=== PATIENT | female | born 1940 | race Caucasian/White ===

== ENCOUNTER → 2018-02-08 14:02 | Outpatient (CLI) | payer MEDICARE, SELFPAY ==
--- NOTE | 2018-02-08 | DI.MG.S_ITS ---
BILATERAL DIGITAL SCREENING MAMMOGRAM 3D/2D WITH CAD: 02/08/2018 CLINICAL: Routine screening. Family history of breast cancer. Comparison is made to exams dated: 01/25/2017 mammogram, 08/09/2015 mammogram, and 06/15/2014 mammogram - [facility]. There are scattered fibroglandular elements in both breasts. Current study was also evaluated with a Computer Aided Detection (CAD) system. No significant masses, calcifications, or other findings are seen in either breast. There has been no significant interval change. IMPRESSION: NEGATIVE There is no mammographic evidence of malignancy. A 1 year screening mammogram is recommended. This exam was interpreted at Station ID: [id number]. NOTE: For mammograms, a report in lay terms will be sent to the patient. Approximately 15% of breast malignancies will not be visualized mammographically. In the management of a palpable breast mass, a negative mammogram must not discourage biopsy of a clinically suspicious lesion. Electronically Signed By: Obdulio pires/kaylie:02/08/2018 15:36:29 copy to: Wendy Wooten letter sent: Normal Exam ACR BI-RADS Category 1: Negative [id number]
== END ==
PROVIDERS: Family Provider Family Medicine; PCP Family Medicine; Visit Provider Family Medicine
DX: Z12.31 Encounter for screening mammogram for malignant neoplasm of breast (principal); Z80.3 Family history of malignant neoplasm of breast
CPT/HCPCS: 77063; 77067

== ENCOUNTER → 2019-02-12 07:51 | Outpatient (CLI) | payer MEDICARE, SELFPAY ==
--- NOTE | 2019-02-12 | DI.MG.S_ITS ---
BILATERAL DIGITAL SCREENING MAMMOGRAM 3D/2D WITH CAD: 02/12/2019 CLINICAL: Routine screening. Family history of breast cancer. Comparison is made to exams dated: 02/08/2018 mammogram, 01/25/2017 mammogram, 08/09/2015 mammogram, 06/05/2012 mammogram, 06/11/2013 mammogram, and 06/15/2014 mammogram - [facility]. There are scattered fibroglandular elements in both breasts. Current study was also evaluated with a Computer Aided Detection (CAD) system. There are post operative findings in the left breast. There is a circular mole marker on the left breast. No significant masses, calcifications, or other findings are seen in either breast. There has been no significant interval change. IMPRESSION: There is no mammographic evidence of malignancy. A 1 year screening mammogram is recommended. This exam was interpreted at Station ID: [id number]. NOTE: For mammograms, a report in lay terms will be sent to the patient. Approximately 15% of breast malignancies will not be visualized mammographically. In the management of a palpable breast mass, a negative mammogram must not discourage biopsy of a clinically suspicious lesion. Electronically Signed By: Carlos Roberson M.D. ecl/:02/12/2019 13:20:26 letter sent: Normal Exam ACR BI-RADS Category 2: Benign Finding(s) 3342F
== END ==
PROVIDERS: PCP Family Medicine; Visit Provider Family Medicine
DX: Z12.31 Encounter for screening mammogram for malignant neoplasm of breast (principal); Z80.3 Family history of malignant neoplasm of breast
CPT/HCPCS: 77063; 77067

== ENCOUNTER → 2019-02-17 09:03 | Outpatient (CLI) | payer MEDICARE, SELFPAY ==
--- NOTE | 2019-02-17 09:06 | DI.MRI.S_ITS ---
PROCEDURE: MR LUMBAR SPINE WO/W CON INDICATIONS: Post fusion w/left LE foot drop TECHNIQUE: Noncontrast sagittal T1 spin echo and T2 fast spin echo, sagittal STIR, axial T1 and T2 fast spin echo through the lumbar spine. In cases with scoliosis, additional coronal T2 fast spin echo may be performed. After the administration of contrast, sagittal and axial T1 spin echo with fat saturation through the lumbar spine. COMPARISON: [facility], MR, L-SPINE WITHOUT CONTRAST, 07/20/2011, 7:40. [facility], MR, L-SPINE WITHOUT CONTRAST, 08/04/2008, 17:33. [facility], MR, L-SPINE W&WO CONTRAST, 11/30/2014, 8:26. [facility], CR, XR LUMBAR SPINE MIN 4V, 02/17/2019, 9:17. [facility], CT, L-SPINE WITHOUT CONTRAST, 02/26/2013, 10:53. FINDINGS: Image quality: Excellent. Alignment and curvature: S-shaped scoliotic curvature is seen. Grade 1 anterolisthesis is seen at the L4-L5 level and there is mild grade 1 anterolisthesis at L4-L5. Marrow: Marrow is of normal overall signal. No acute vertebral body compression fractures. No suspicious marrow enhancement. Spinal cord: Conus medullaris terminates at the L1 level. Visualized spinal cord demonstrates normal signal, without suspicious enhancement. Paraspinous soft tissues: No paravertebral masses or abnormal enhancement. Left-sided pedicle screws are seen at L4, L5, and S1. A vertical fixation saw is seen. Disc spacers are seen at L4-L5 and L5-S1. There is associated susceptibility artifact. There has been removal of portions of the posterior elements. T12-L1: At least moderate loss of disc height and disc signal can be seen. Endplate irregularity is seen. Moderate loss of disc height is seen. Loss of disc signal is seen. Posteriorly projected endplate osteophytes are seen. Reactive marrow endplate changes are seen, which are hyperintense on T1-weighted and T2-weighted imaging and most consistent with fatty metaplasia (Modic type II changes). There is moderate right-sided and no significant left-sided neural foraminal narrowing seen. Mild central canal narrowing is seen. No significant change compared to 2015. L1-L2: The disc height is well-preserved. Loss of disc signal is seen at this level. Mild to moderate disc bulge is seen, which is eccentric to the left. There is a central/left disc protrusion seen. There is moderate left-sided and moderate to severe right-sided neural foraminal narrowing seen. These imaging findings have progressed compared to the prior study. L2-L3: Moderate to severe loss of disc height and disc signal are seen. Moderate to prominent disc bulge is seen at this level. Moderate facet joint hypertrophy is seen. There is moderate to severe right-sided and moderate left-sided neural foraminal narrowing seen. Moderate to severe central canal narrowing is seen, as on series 5 image 14. The degree of central canal narrowing is exacerbated by prominent posterior epidural fat. These imaging findings have progressed compared to the prior study. L3-L4: Moderate to severe loss of disc height and disc signal are seen. At least moderate disc bulge is seen. Posteriorly projected endplate osteophytes are seen. Moderate facet joint hypertrophy is seen. There is at least moderate right-sided and moderate to severe left-sided neural foraminal narrowing seen. There is a degree of compression seen upon the exiting nerve roots. At least moderate central canal narrowing is seen. These imaging findings have progressed compared to the prior study. L4-L5: Postoperative changes are seen at this level. Mild to moderate disc bulge is seen. Moderate facet joint hypertrophy is seen. There is mild right-sided and moderate to severe left-sided neural foraminal narrowing seen. The central canal is widely patent. No abnormal enhancement can be seen at this level. When comparison is made with the prior examination, these findings are similar. L5-S1: There are postoperative changes at this level. Mild to moderate disc bulge is seen. There is moderate right-sided and mild to moderate left-sided neural foraminal narrowing seen. No significant central canal narrowing is seen. No abnormal enhancement is seen. Stable from the prior study. IMPRESSION: Lower lumbar spine postoperative changes, which are stable. No abnormal enhancement can be seen. Multiple levels of lumbar spine degenerative change are seen, which are progressed at several levels compared to 2015. Dictated by: Darren Thompson M.D. on 02/17/2019 at 10:40 Approved by: Darren Thompson M.D. on 02/17/2019 at 10:50
--- NOTE | 2019-02-17 09:06 | DI.RAD.S_ITS ---
PROCEDURE: XR LUMBAR SPINE MIN 4V INDICATIONS: Post fusion w/left LE foot drop TECHNIQUE: 5 views of the lumbar spine were acquired. COMPARISON: [facility] [place], ZAYDA, SPINE LUMB 2 OR 3VW, 06/21/2016, 16:30. [facility], ZAYDA, L-SPINE 2-3 VIEWS, 09/28/2014, 10:31. FINDINGS: No fracture or focal osseous destruction. Posterior spinal instrumentation from L4-S1 as before with paraspinal saw and pedicle screws. Hardware appears grossly intact. There is unchanged alignment. Residual grade 1 anterolisthesis of L4 and L5 appears unchanged. Levocurvature of the thoracolumbar spine. Severe narrowing of the L2-L3 and L3-L4 disc spaces which has progressed since the prior study. Multilevel degenerative endplate sclerosis and spurring. Diffuse facet arthropathy. There is also interval progression in lower thoracic and L1-L2 and L2-L3 spondylosis. IMPRESSION: Unchanged alignment of L4-S1 spinal instrumentation as above. Interval progression of severe multilevel lumbar spondylosis since 06/21/16. Thoracolumbar levoscoliosis, also progressed. Dictated by: Dayne Beach M.D. on 02/17/2019 at 10:24 Approved by: Dayne Beach M.D. on 02/17/2019 at 10:28
== END ==
PROVIDERS: PCP Family Medicine; Visit Provider Physical Medicine & Rehabilitation
DX: M47.26 Other spondylosis with radiculopathy, lumbar region (principal); M21.372 Foot drop, left foot; M48.061 Spinal stenosis, lumbar region without neurogenic claudication; M48.07 Spinal stenosis, lumbosacral region; M41.85 Other forms of scoliosis, thoracolumbar region; Z98.1 Arthrodesis status
CPT/HCPCS: 72110; 72158; A9579

== ENCOUNTER 2019-03-18 08:06 | Outpatient (CLI) | payer MEDICARE, SELFPAY ==
[2019-03-18] VITALS (10 sets, daily range): BP systolic 123–155; BP diastolic 61–79; PULSE 64–74; RESP 16–20; TEMP 35.9; O2SAT 97–100
--- NOTE | 2019-03-18 08:10 | DI.RAD.S_ITS ---
PROCEDURE: PAIN L/SI FACET INJ/BLK 1STL INDICATIONS: SPINAL STENOSIS FINDINGS: Fluoroscopic spot filming was performed to verify placement of spinal needles at the left L2 left L3 and L3 at L4 level(s), as labeled on the films. Appropriate location(s) of the needle tip(s) was confirmed by injection of iodinated contrast. Note is made of postsurgical changes with left particular screws in the lower lumbar spine. IMPRESSION: Fluoroscopy for pain management. Dictated by: Shaina Ovalles M.D. on 03/18/2019 at 10:04 Approved by: Shaina Ovalles M.D. on 03/18/2019 at 10:07
[2019-03-18] MEDS: MIDAZOLAM 5 MG/5 ML VIAL IV (09:24)
[2019-03-18] MEDS: fentaNYL 100 MCG/2 ML INJ 50 MCG IV (09:24)
[2019-03-18] MEDS: BUPIVACAINE 0.5% (PF) VIAL 2 ML INJ (09:29)
[2019-03-18] MEDS: IOPAMIDOL 15 ML VIAL 3 ML INJ (09:29)
[2019-03-18] MEDS: LIDOCAINE 1% 20 ML INJ 10 ML INJ (09:29)
[2019-03-18] MEDS: BETAMETHASONE 30 MG/5 ML MDV 12 MG INJ (09:30)
--- NOTE | 2019-03-18 09:37 | PC.NURSE ---
pt tolerated procedure well. Able to get off table with standby assist. Transferred pt via wheelchair to pre procedure room for continued monitoring with Day DICKERSON.
--- NOTE | 2019-03-18 09:48 | P.PCN_ITS ---
Procedures Date/Time Date of procedure: 03/18/19 Time of procedure: 09:40 General Procedure description: POST OP DIAGNOSIS 1. FACET ARTHROPATHY PROCEDURES 1. Left L3,L4, L5 MB BLOCKS PHYSICIAN: Marciano Segal DO INDICATIONS Archie is referred by Dr. Vanegas for treatment of Left Axial LBP. DESCRIPTION OF PROCEDURE Fluoroscopically guided, contrast-controlled left L3, L4, L5 medial branch blocks with 0.5cc of 0.5% Marcaine. Following review of allergy and review of potential side effects and complications, including, but not necessarily limited to, infection, allergic reaction, local tissue breakdown, nerve injury, paralysis, stroke and possible , the patient indicated that the patient understood and agreed to proceed. An informed consent document was signed by the patient, witnessed by a nurse, and placed in the patient's chart. After review of previous anaesthesic history and IV conscious sedation the patient was deemed safe to proceed with todays procedure with IV conscious sedation as ASA class II designation. Safety time-out was performed to confirm patient ID, procedure to be performed and site of procedure. IV sedation was accomplished with a combination of 2mg of Versed and 50mcg Fentanyl was admini stered by the RN after DO order, titrated to patient comfort during the course of the procedure while the patient remained responsive to all verbal commands. In the prone position, following sterile prep and drape of the lumbar region, the left L3, L4, L5 anatomical location of the medial branch of the dorsal ramus was identified fluoroscopically. Subsequently an anesthetic skin wheal using 1% lidocaine solution was initiated at each of the anatomical spots. Subsequently then a 22-gauge 3.5-inch spinal needle was atraumatically introduced and advanced under fluoroscopic guidance at each of the corresponding sites at the left L3 L4, L5 MB. After negative aspiration, 0.2 cc of Isovue 200 was injected, confirming placement without vascular or intrathecal uptake. Subsequently then 0.5 cc of 0.5% Marcaine solution was injected at each of the corresponding sites at the left L3,L4, L5 medial branch locations. The patient tolerated the procedure well without signs or symptoms of complications. The patient tolerated the procedure well without signs or symptoms of complications prior to transfer to the recovery area continued monitoring without incident. Post-procedure, the patient was monitored initiating provocative activities to measure the amount of relief from block of the facetogenic pain. The patient reported a VAS of 7 prior to the procedure and a post-procedure VAS of 1. It has been a pleasure to assist in the diagnostic and therapeutic care of your patient. Total Fluoroscopy Time: 24.8 seconds Total Conscious Sedation Time: 24min POST OP INSTRUCTIONS The patient was provided with a Pain Log to complete over the next several hours and subsequent days prior to the patient's follow up with the ordering physician. 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 The patient is aware, was provided, once again, with a Pain Log and will follow up with the referring physician for review and clinical correlation Marciano Segal DO Complications: none
== END 2019-03-18 10:01 ==
LOC: RAD 08:08
PROVIDERS: PCP Family Medicine; Visit Provider Physical Medicine & Rehabilitation
DX: M47.816 Spondylosis without myelopathy or radiculopathy, lumbar region (principal)
CPT/HCPCS: 64493; 64494; 64495; 99152; J0702; J2250; J3010

== ENCOUNTER → 2019-04-21 09:36 | Outpatient (CLI) | payer MEDICARE, SELFPAY ==
--- NOTE | 2019-04-21 | DI.CT.S_ITS ---
PROCEDURE: CT KIDNEY URETER BLADDER (KUB) INDICATIONS: Urinary tract infection, site not specified TECHNIQUE: Noncontrast 5 mm thick sections acquired from the diaphragms to the symphysis. 5 mm thick coronal and sagittal reformats were then performed. For radiation dose reduction, the following was used: automated exposure control, adjustment of mA and/or kV according to patient size. COMPARISON: [facility], CT, ABDOMEN/PELVIS WITH CONTRAST, 03/12/2014, 10:29. FINDINGS: Image quality: Excellent. Lung bases: Lung bases are clear. Heart size is normal. Urinary system: Both kidneys are normal in size. No kidney stones. No hydronephrosis or perinephric fat stranding. Both ureters appear non-dilated throughout their expected courses. Bladder wall thickness is normal; no calcified bladder stones. Other solid organs: Liver is normal in size. Gallbladder is unremarkable. Pancreas is normal in contours. Spleen is normal in size. No adrenal nodules. Peritoneum and bowel: Sigmoid diverticulosis without evidence of diverticulitis. Unenhanced bowel loops demonstrate normal wall thickness and caliber. No free fluid or air. Nodes and vessels: No retroperitoneal or mesenteric adenopathy by size criteria. Aorta and inferior vena cava are normal in caliber. Dense aortic atherosclerotic calcifications. Abdominal wall: Left posterior lateral abdominal hernia containing fat. Pelvis: No free pelvic fluid. Small bilateral inguinal hernias, left greater than right, containing fat. Previous left adnexal cyst is no longer present. Bones: No suspicious bony lesions. No vertebral body compression fractures. Remote lower lumbar fusion. IMPRESSION: 1. No evidence of renal stone or ureteral stone. 2. Left adnexal cyst no longer present. 3. Sigmoid diverticulosis. 4. Left posterior lateral, wall hernia containing fat. 5. Bilateral inguinal hernias containing fat. Dictated by: Audie Dunbar M.D. on 04/21/2019 at 11:25 Approved by: Audie Dunbar M.D. on 04/21/2019 at 11:31
== END ==
PROVIDERS: PCP Family Medicine; Visit Provider Urology
DX: N39.0 Urinary tract infection, site not specified (principal); K57.30 Diverticulosis of large intestine without perforation or abscess without bleeding; K40.20 Bilateral inguinal hernia, without obstruction or gangrene, not specified as recurrent; K46.9 Unspecified abdominal hernia without obstruction or gangrene; I70.0 Atherosclerosis of aorta
CPT/HCPCS: 74176

== ENCOUNTER 2019-05-20 07:24 | Outpatient (CLI) | payer MEDICARE, SELFPAY ==
[2019-05-20] VITALS (7 sets, daily range): BP systolic 134–159; BP diastolic 72–93; PULSE 61–68; RESP 16–18; TEMP 36; O2SAT 95–100
--- NOTE | 2019-05-20 07:27 | DI.RAD.S_ITS ---
PROCEDURE: PAIN L/S MED/LAT N RFA INDICATIONS: SPONDYLOSIS FINDINGS: Fluoroscopic spot filming was performed to verify placement of spinal needles at the left L2, L3, L4-4 medial branch rhizotomy. level(s), as labeled on the films. Appropriate location(s) of the needle tip(s) was confirmed by injection of iodinated contrast. IMPRESSION: Successful left-sided L2-L4 medial branch needle tip localization for rhizotomy. Dictated by: Jason Baer M.D. on 05/20/2019 at 10:44 Approved by: Jason Baer M.D. on 05/20/2019 at 10:45
[2019-05-20] MEDS: MIDAZOLAM 5 MG/5 ML VIAL IV (08:33)
[2019-05-20] MEDS: BUPIVACAINE 0.5% (PF) VIAL 5 ML INJ (08:49)
[2019-05-20] MEDS: BETAMETHASONE 30 MG/5 ML MDV 12 MG INJ (08:49)
[2019-05-20] MEDS: LIDOCAINE 1% 20 ML 10 ML INJ (08:49)
--- NOTE | 2019-05-20 08:57 | PC.NURSE ---
ASSISTING PT OFF TABLE AND TRANSPORTING TO POST PROC AREA IN STABLE CONDITION. PASSING PT CARE OFF TO KRISTINE Bruno RN.
--- NOTE | 2019-05-20 09:04 | P.PCN_ITS ---
Procedures Date/Time Date of procedure: 05/20/19 Time of procedure: 09:04 General Procedure description: PREOP DIAGNOSIS 1. RECALCITRANT FACET ARTHROPATHY, POST OP DIAGNOSIS 1. RECALCITRANT FACET ARTHROPATHY PROCEDURES 1. LEFT L2, L3 AND L4 MEDIAL BRANCH RADIOFREQUENCY NEUROTOMY PHYSICIAN: Marciano Segal DO INDICATIONS: Archie is referred by Dr. Vanegas for treatment of facet arthropathy. DESCRIPTION OF PROCEDURE Left L2, L3 and L4 medial branch radio-frequency neurotomy The patient is well known to this clinic having undergone previous facet injections with good but temporary relief. The patient has experienced appropriate, concordant relief with previous facet and median branch blocks but the patient's pain has been recalcitrant to further conservative measures. Therefore, based upon the patient's relief and persistent symptoms, the patient is considered an appropriate candidate for facet rhizotomy. All of the patient's questions regarding the risks versus benefits of the procedure, including, but not limited to, bleeding, infection, temporary as well as lasting nerve injury, paralysis, stroke, and , as well treatment alternatives were answered to satisfaction. After obtaining informed consent, denial of pertinent drug allergies, as well as being made aware of the potential risks of bleeding, infection, spinal cord trauma, paralysis, temporary and permanent nerve damage, seizure, stroke, and po ssible , the patient was brought to the fluoroscopy suite and positioned prone on the fluoroscopy table. The lumbar region was prepped with Betadine and covered with a fenestrated drape in the usual sterile fashion. Appropriate monitors applied including pulse oximeter, pulse, and blood pressure for regular monitoring throughout the procedure. After review of previous anaesthesic history and IV conscious sedation the patient was deemed safe to proceed with todays procedure with IV conscious sedation as ASA class II designation. Safety time-out was performed to confirm patient ID, procedure to be performed and site of procedure. IV sedation was accomplished with a combination of 3mg of Versed administered by the RN after DO order, titrated to patient comfort during the course of the procedure while the patient remained responsive to all verbal commands. After local infiltration using 1% lidocaine, under fluoroscopic guidance, a 10- cm RF insulated needle with a 10-mm active tip was positioned parallel to the junction of the left the superior articulating process where the L2 medial branch resides. Needle placement was confirmed with sensory stimulation at 50 Hz, with motor stimulation of .5v on the left which produced local stimulation without radicular component. The stimulation was then increased to 1.5v with, once again, only local multifidus stimulation without radicular component. This was then followed by two discreet lesions performed at 80 degrees Celsius for 90 seconds each. The needle was then removed and the identical procedure was performed along the length of the left L3 medial branch with motor stimulation at .7v on the left. The identical procedure was once again performed along the length of the left L4 and medial branch with motor stimulation of .5v on the right. The patient tolerated the procedure well without signs or symptoms of complications prior to transfer to the recovery area continued monitoring without incident. The patient was then transferred to the recovery area where they were observed for an appropriate period of time after the injection. The patient reported a VAS score of 9 prior to the procedure and a post-procedure VAS of 0. Total Fluoroscopy Time: 22.7 seconds Total Conscious Sedation Time: 34min POST OP INSTRUCTIONS The patient was provided a Pain Log to continue to record the patient's response to the target-specific procedure prior to the patient's follow-up visit with the referring physician. Additionally, specific post-injection care instructions and a contact number to our office were provided if concerns arise regarding possible complications associated with the procedure are suspected. Marciano Segal DO Complications: none
--- NOTE | 2019-05-20 09:52 | PC.NURSE ---
0903 pt arrived via w/c post procedure, transfer self from w/c to recliner without assist, resume care from Rachele Sellers. coffee and cookies offered, tolerated.
== END 2019-05-20 09:22 | disposition home or self-care (01) ==
LOC: RAD 07:26
PROVIDERS: PCP Family Medicine; Visit Provider Physical Medicine & Rehabilitation
DX: M47.816 Spondylosis without myelopathy or radiculopathy, lumbar region (principal); M47.817 Spondylosis without myelopathy or radiculopathy, lumbosacral region
CPT/HCPCS: 64635; 64636; 99152; J0702; J2250; J3010

== ENCOUNTER → 2019-06-16 09:34 | Outpatient (CLI) | payer MEDICARE, SELFPAY ==
--- NOTE | 2019-06-16 | DI.RAD.S_ITS ---
PROCEDURE: XR CHEST 2V INDICATIONS: CHEST PAIN TECHNIQUE: 2 views of the chest were acquired. COMPARISON: CT chest including the inferior lungs . FINDINGS: Surgical changes and devices: None. Lungs and pleura: Lungs are clear. No pleural effusions or pneumothorax. Mediastinum: Mediastinal contours are normal. Heart size is normal. Bones and chest wall: No suspicious bony abnormalities. Soft tissues appear unremarkable. IMPRESSION: No acute cardiopulmonary abnormality. Dictated by: Erick Mann M.D. on 06/16/2019 at 10:12 Approved by: Erick Mann M.D. on 06/16/2019 at 10:24
--- NOTE | 2019-06-16 10:56 | PM.TREADMILL ---
Cardiac Stress Test Report Referral & Results Date Patient Seen: 06/16/19 Requesting provider: Marciano Vanegas Indication: Chest discomfort Rest ECG: Unremarkable Procedure Note: After both written and verbal informed consent the patient had an IV started by the diagnostic imaging RN and then was hooked up to the treadmill monitoring system. The patient was placed on the treadmill at 1 mile an hour with no elevation and was then injected with the Lynnette scan material. The Cardiolite was then immediately administered. The patient spent an additional 2-3 minutes on the treadmill before being returned to the [facility] in the supine position. The patient had a normal response to all infused materials. Impression: See perfusion imaging report for details regarding possible ischemia Please note: Actual ECG tracings can be found in the PACS system.
--- NOTE | 2019-06-17 17:53 | DI.NM.S_ITS ---
DATE OF SERVICE: 06/16/2019 PROCEDURE: Pharmacological perfusion study. INDICATIONS: Chest pain with underlying hypertension, hyperlipidemia. RADIOPHARMACEUTICAL: 25.1 mCi of technetium-99m Myoview IV was injected at stress and 25.4 mCi of technetium-99m Myoview IV was injected at rest. CARDIAC STRESS: Patient underwent Lexiscan perfusion study under the supervision of an attending staff using standard IV Lexiscan protocol. She remained hemodynamically stable. Patient received IV Lexiscan as per standard protocol. Baseline EKG revealed sinus rhythm with very slight ST-flattening depression in inferior leads which got more pronounced during Lexiscan infusion. There were no significant sustained arrhythmias. No significant symptoms were reported. RAW DATA: There was adequate myocardial uptake. GATED STUDY: Stress LV ejection fraction 80% without any obvious wall motion abnormalities. There is no transient ischemic dilatation. TID ratio is 0.87, which is within normal limits. Resting LV end-diastolic volume is 68 mL. Lung/heart ratio is 0.34, which is within normal limits. MYOCARDIAL PERFUSION SCAN: Stress supine, resting supine, and stress prone images were compared to each other. It appears to be that patient has normal myocardial perfusion. CONCLUSION: This is a normal myocardial perfusion study without any convincing ischemia infarction. Overall this is a low-risk myocardial perfusion study. Archie Chopra - PAUL/kiet/ doc#: [id number]/job#: [id number] dd: 06/17/2019 17:15:00 dt: 06/17/2019 17:47:00 DICTATING /COPIES TO: Ngoc Troncoso MD COPIES MNE: INNA
== END ==
PROVIDERS: PCP Family Medicine; Visit Provider Family Medicine
DX: R07.89 Other chest pain (principal); I10 Essential (primary) hypertension; E78.5 Hyperlipidemia, unspecified
CPT/HCPCS: 71046; 78452; 93016; 93017; 93018; A9502; J2785

== ENCOUNTER → 2020-01-14 08:54 | Outpatient (CLI) | payer MEDICARE, SELFPAY ==
--- NOTE | 2020-01-14 08:56 | DI.RAD.S_ITS ---
PROCEDURE: XR FOOT RT MIN 3V INDICATIONS: right mid foot pain and swelling TECHNIQUE: 3 views of the right foot were acquired. COMPARISON: [facility], , FOOT 3V LEFT, 12/19/2017, 14:01. FINDINGS: Bones: No fractures or dislocations. No suspicious bony lesions. There are small periarticular cysts present at the base of the third, fourth and fifth metatarsal bones. The largest is at the base of the fourth metatarsal, measuring up to 9 mm in diameter. These are sharply demarcated and likely reflect subchondral cysts related to degenerative change. Soft tissues: No tibiotalar joint effusion. Achilles tendon appears normal. IMPRESSION: Degenerative change with subchondral cyst formation as discussed at the base of the third fourth and fifth metatarsal bones. No acute trauma found. Dictated by: Jason Baer M.D. on 01/14/2020 at 9:31 Approved by: Jason Baer M.D. on 01/14/2020 at 9:33
== END ==
PROVIDERS: PCP Family Medicine; Referring Provider Physical Medicine & Rehabilitation; Visit Provider Physical Medicine & Rehabilitation
DX: M79.671 Pain in right foot (principal); M85.671 Other cyst of bone, right ankle and foot; M79.89 Other specified soft tissue disorders; R26.81 Unsteadiness on feet; M19.071 Primary osteoarthritis, right ankle and foot; M48.061 Spinal stenosis, lumbar region without neurogenic claudication; M47.817 Spondylosis without myelopathy or radiculopathy, lumbosacral region
CPT/HCPCS: 73630; 99214

== ENCOUNTER → 2020-02-28 11:05 | Outpatient (CLI) | payer MEDICARE, SELFPAY ==
[2020-02-29 10:25] LABS: COVID19 Sendout Not Detected (Not Detect)
== END ==
PROVIDERS: PCP Family Medicine; Visit Provider Physician Assistant
DX: Z01.812 Encounter for preprocedural laboratory examination (principal)
CPT/HCPCS: 87635

== ENCOUNTER 2020-03-02 12:43 | Outpatient (CLI) | payer MEDICARE, SELFPAY ==
[2020-03-02] VITALS (8 sets, daily range): BP systolic 113–168; BP diastolic 59–93; PULSE 73–85; RESP 14–18; TEMP 36.8; O2SAT 95–100
--- NOTE | 2020-03-02 12:44 | DI.RAD.S_ITS ---
PROCEDURE: PAIN L INTERLAMINAR/CAUDAL INJ INDICATIONS: SPONDYLOSIS FINDINGS: Fluoroscopic spot filming was performed to verify placement of spinal needles at the L3-L4 level(s), as labeled on the films. Appropriate location(s) of the needle tip(s) was confirmed by injection of iodinated contrast. Dictated by: Dayne Beach M.D. on 03/03/2020 at 8:48 Approved by: Dayne Beach M.D. on 03/03/2020 at 8:54
[2020-03-02] MEDS: fentaNYL 100 MCG/2 ML INJ 50 MCG IV (13:18)
[2020-03-02] MEDS: MIDAZOLAM 5 MG/5 ML VIAL IV (13:18)
[2020-03-02] MEDS: DEXAMETHASONE 10 MG/ML VIAL 20 MG INJ (13:22)
[2020-03-02] MEDS: BUPIVACAINE 0.25% (PF) VIAL 2 ML INJ (13:22)
[2020-03-02] MEDS: IOPAMIDOL 15 ML VIAL 3 ML INJ (13:22)
[2020-03-02] MEDS: BETAMETHASONE 30 MG/5 ML MDV 6 MG INJ (13:23)
--- NOTE | 2020-03-02 13:45 | P.PCN_ITS ---
Procedures Date/Time Date of procedure: 03/02/20 Time of procedure: 13:45 General Procedure description: POST OP DIAGNOSIS 1. HNP WITH RADICULAR FEATURES, 2. MULTILEVEL CENTRAL STENOSIS, PROCEDURES 1. FLUORSCOPICALLY GUIDED CONTRAST CONTROLLED INTERLAMINAR EPIDURAL STEROID INJECTION - L3/4 PHYSICIAN: Marciano Segal, DO INDICATIONS Archie is referred by for treatment of Bilateral Foraminal Stenosis L>R LE symptoms s/p lumbar fusion. FINDINGS Multilevel Central Spinal Stenosis with Nerve Root Compression DESCRIPTION OF PROCEDURE Fluoroscopically guided, contrast-controlled L3/4 translaminar epidural steroid injection. Following review of allergy and review of potential side effects and complications, including, but not necessarily limited to, infection, allergic reaction, local tissue breakdown, temporary as well as permanent nerve injury, paralysis, stroke and possible , the patient indicated that the patient understood and agreed to proceed. An informed consent document was signed by the patient, witnessed by a nurse, and placed in the patient's chart. Additionally, other treatment options including modalities, medications, and physical therapy were reviewed with the patient. After review of previous anaesthesic history and IV conscious sedation the patient was deemed safe to proceed with todays procedure with IV conscious sedation as ASA class II designation. Safety time-out was performed to confirm patient ID, procedure to be performed and site of procedure. IV sedation was accomplished with a combination of 2mg of Versed and 50mcg of Fentanyl was administered by the RN after DO order, titrated to patient comfort during the course of the procedure while the patient remained responsive to all verbal commands. In the prone position, following sterile prep and drape of the lumbar region, the L3/4 translaminar space was identified fluoroscopically. The skin was anesthetized via a 25-gauge, 1.5-inch needle with 1% lidocaine solution. At this point, a 22-gauge short bevel spinal needle was atraumatically introduced and advanced under fluoroscopic guidance into the region of the L3/4 translaminar space. Depth was confirmed on lateral view. Radiological data, including multiple fluoroscopic views of the lumbar spine, reveal a spinal needle at the L3/4 translaminar space. Lateral views then show placement of the needle in the epidural space. Subsequent views show contrast material flowing superiorly and inferiorly in the epidural space. No vascular or intrathecal uptake is observed. At this point, using loss of resistance technique with saline and air, the ep idural space was entered. This was confirmed following negative aspiration with injection of approximately 1.5cc of Isovue 200, showing excellent epidural flow without vascular or intrathecal uptake. At this point, 1cc of 1% lidocaine solution combined with 3cc or 20mg of dexamethasone and 6mg of betamethasone was injected without incident. The patient tolerated the procedure well without signs or symptoms of complications prior to transfer to the recovery area continued monitoring without incident. The patient was then transferred to the recovery area where they were observed for an appropriate period of time after the injection. The patient reported a VAS score of 6 prior to the procedure and a post- procedure VAS of 0. Total Fluoroscopy Time: 11 seconds Total Conscious Sedation Time: 24 min POST OP INSTRUCTIONS The patient was provided a Pain Log to continue to record their response to the target-specific procedure prior to follow-up visit with their referring physician. Additionally, specific post-injection care instructions and a contact number to our office were provided if concerns arise regarding possible complications associated with the procedure are suspected. Marciano Segal DO Complications: none
--- NOTE | 2020-03-02 13:57 | PC.NURSE ---
Pt arrived to pre proc room via , SBA only for transfer from wc to chair, resumed monitoring by this Rn
== END 2020-03-02 14:04 | disposition home or self-care (01) ==
LOC: RAD 12:43
PROVIDERS: PCP Family Medicine; Referring Provider Physical Medicine & Rehabilitation; Visit Provider Physical Medicine & Rehabilitation
DX: M51.16 Intervertebral disc disorders with radiculopathy, lumbar region (principal); M48.061 Spinal stenosis, lumbar region without neurogenic claudication
CPT/HCPCS: 62323; 99152; J0702; J1100; J2250; J3010

== ENCOUNTER → 2020-04-01 11:09 | Outpatient (CLI) | payer MEDICARE, SELFPAY ==
--- NOTE | 2020-04-01 | DI.MG.S_ITS ---
BILATERAL DIGITAL SCREENING MAMMOGRAM 3D/2D WITH CAD: 04/01/2020 CLINICAL: Routine screening. Family history of breast cancer. Comparison is made to exams dated: 02/12/2019 mammogram, 02/08/2018 mammogram, and 01/25/2017 mammogram - [facility]. There are scattered fibroglandular elements in both breasts. Current study was also evaluated with a Computer Aided Detection (CAD) system. There are benign post operative findings in the left breast. There is a mole marker on the left breast. No significant masses, calcifications, or other findings are seen in either breast. There has been no significant interval change. IMPRESSION: There is no mammographic evidence of malignancy. A 1 year screening mammogram is recommended. This exam was interpreted at Station ID: [id number]. NOTE: For mammograms, a report in lay terms will be sent to the patient. Approximately 15% of breast malignancies will not be visualized mammographically. In the management of a palpable breast mass, a negative mammogram must not discourage biopsy of a clinically suspicious lesion. Electronically Signed By: Martín harkins/kaylie:04/01/2020 17:04:20 letter sent: Normal Exam ACR BI-RADS Category 2: Benign Finding(s) 3342F
== END ==
PROVIDERS: PCP Family Medicine; Referring Provider Family Medicine; Visit Provider Family Medicine
DX: Z12.31 Encounter for screening mammogram for malignant neoplasm of breast (principal); Z80.3 Family history of malignant neoplasm of breast
CPT/HCPCS: 77063; 77067

== ENCOUNTER → 2020-04-12 10:45 | Outpatient (CLI) | payer MEDICARE, SELFPAY ==
--- NOTE | 2020-04-12 11:20 | DI.RAD.S_ITS ---
PROCEDURE: XR CERVICAL SPINE 4V OR 5V INDICATIONS: Neck pain TECHNIQUE: 5 views of the cervical spine acquired. COMPARISON: None. FINDINGS: Bones: No fracture. Straightening of the normal cervical lordosis. Trace anterolisthesis of C3 on C4 and C4 on C5. Severe narrowing of the C6-C7 C7-T1 disc spaces and mild to moderate narrowing of the remaining cervical disc spaces. On the right, mild bony foraminal stenosis at C4-C5, and moderate bony foraminal narrowing at C6-C7. On the left, mild to moderate bony foraminal narrowing at C4-C5 and C6-C7. Lateral curvature of the spine. Soft tissues: No prevertebral soft tissue swelling. IMPRESSION: Severe cervical spondylosis and facet arthropathy, most pronounced at C6-C7, and C7-T1. Dictated by: Dayne Beach M.D. on 04/12/2020 at 14:14 Approved by: Dayne Beach M.D. on 04/12/2020 at 14:18
--- NOTE | 2020-04-12 11:20 | DI.RAD.S_ITS ---
PROCEDURE: XR KNEE RT 3V INDICATIONS: DJD TECHNIQUE: 3 views of the knee were acquired. COMPARISON: None. FINDINGS: Bones: No fractures or dislocations. No suspicious bony lesions. Mild to moderate medial patellofemoral compartment narrowing. No erosions. Soft tissues: Minimal joint effusion. No suspicious soft tissue calcifications. IMPRESSION: Minimal effusion of [id number] medial patellofemoral compartment narrowing suggestive of osteoarthritis. Dictated by: Vandana Mcnair M.D. on 04/12/2020 at 14:26 Approved by: Vandana Mcnair M.D. on 04/12/2020 at 14:28
== END ==
PROVIDERS: PCP Family Medicine; Referring Provider Family Medicine; Visit Provider Physical Medicine & Rehabilitation
DX: M54.2 Cervicalgia (principal); M47.22 Other spondylosis with radiculopathy, cervical region; M17.11 Unilateral primary osteoarthritis, right knee
CPT/HCPCS: 72050; 73562

== ENCOUNTER → 2020-09-06 11:54 | Outpatient (CLI) | payer MEDICARE, SELFPAY ==
[2020-09-06 12:24] LABS: COVID19 -Nasal RAPID Negative (Negative)
== END ==
PROVIDERS: PCP Family Medicine; Visit Provider Surgery
DX: Z01.812 Encounter for preprocedural laboratory examination (principal); Z20.822 Contact with and (suspected) exposure to COVID-19
CPT/HCPCS: 87635; C9803

== ENCOUNTER 2020-09-07 11:56 | Day surgery (SDC) | payer MEDICARE, SELFPAY ==
[2020-09-07] VITALS (7 sets, daily range): BP systolic 106–139; BP diastolic 52–92; PULSE 71–89; RESP 8–16; TEMP 36.2–36.7; O2SAT 97–100; BMI 23.0
--- NOTE | 2020-09-07 | PATH_ITS ---
[facility] Accession Number: [id number] . 01 Material submitted: . PART A: duodenum - DUODENUM BX PART B: gastrointestinal site - STOMACH BX PART C: gastrointestinal site - GASTRIC POLYPS PART D: esophagus - ESOPHAGEAL BX PART E: body - POLYP @40 CM . 02 Diagnosis: A. Duodenum, Biopsy: Duodenal mucosa with no diagnostic abnormality. Negative for active inflammation, features of sprue, dysplasia, or malignancy. . B. Stomach, Biopsy: Antral mucosa with mild chronic gastritis. Negative for Helicobacter by immunohistochemistry. Negative for intestinal metaplasia. Negative for dysplasia and malignancy. . C. Stomach, Polyps, Biopsies: Gastric hyperplastic polyp. No evidence of Helicobacter on H/E stain. Negative for intestinal metaplasia. Negative for dysplasia and malignancy. . D. Esophagus, Biopsy: Columnar mucosa with a few dilated glands and no other diagnostic abnormality. Negative for intestinal metaplasia. Negative for dysplasia and malignancy. . E. Polyp at 40 cm, Biopsy: Inflammatory polyp. [facility] 09/10/2020 1333 Local . 02 Electronically signed: . Mary Patel MD, Pathologist NPI- [id number] . 01 Gross description: . Part A: DUODENUM BX: Received in formalin are 2 fragment(s) of garces, soft tissue measuring 0.2 x 0.2 x 0.2 cm to 0.4 x 0.2 x 0.2 cm submitted entirely in 1 cassette(s) Part B: STOMACH BX: Received in formalin are 2 fragment(s) of garces, soft tissue measuring 0.2 x 0.2 x 0.2 cm to 0.3 x 0.2 x 0.2 cm submitted entirely in 1 cassette(s) Part C: GASTRIC POLYPS: Received in formalin are 2 fragment(s) of garces, soft tissue measuring 0.1 x 0.1 x 0.1 cm to 0.3 x 0.2 x 0.2 cm submitted entirely in 1 cassette(s) Part D: ESOPHAGEAL BX: Received in formalin is 1 fragment(s) of garces, soft tissue measuring 0.3 x 0.2 x 0.2 cm submitted entirely in 1 cassette(s) Part E: POLYP @40 CM: Received in formalin are 2 fragment(s) of garces, soft tissue measuring 0.1 x 0.1 x 0.1 cm to 0.3 x 0.3 x 0.3 cm submitted entirely in 1 cassette(s) /TONIE 09/08/2020 2045 Local . 02 Microscopic: . B. An immunohistochemical stain was performed to evaluate for Helicobacter organisms and is negative. The control stain showed appropriate reactivity. . * This test was developed and its performance characteristics determined by [facility]. It has not been cleared or approved by the U.S. Food and Drug Administration. The FDA has determined that such clearance or approval is not necessary. This test is used for clinical purposes. It should not be regarded as investigational or for research. . 02 Pathologist provided ICD-10: R19.5, R10.13 . 02 CPT . 681554, 185694, 411520, 203203, 050840, A25850 Performed at: 01 [facility] [address] [place] [address], [place], [place] [id number] MD Nas Catherine MD Phone: [phone] Performed at: 02 [facility] [address] [place], [place] [id number] MD Mary Patel MD Phone: [phone]
[2020-09-07] MEDS: SODIUM CHLORIDE 0.9% 1,000 ML 200 ML IV (12:25)
--- NOTE | 2020-09-07 13:00 | PM.PREOP ---
Pre-operative Note COVID-19 COVID-19 status: Negative Result date/Date tested (Pos, Neg/Pending): 09/06/20 Interval Note History & Physical reviewed/Exam performed by Physician: Yes Changes to H&P: No ASA Class (for procedural sedation): II
--- NOTE | 2020-09-07 13:03 | PM.OP.ENDO ---
Operative Date/Time/Diagnoses Date of procedure: 09/07/20 Time of procedure: 13:03 Pre-op diagnosis: Change in bowel habits, guaiac-positive stool, epigastric pain Procedure & Clinicians Study performed: Esophagogastroduodenoscopy Procedural sedation performed by the endoscopist Biopsies of duodenum, stomach, stomach polyps, distal esophagus Colonoscopy Same procedure as scheduled: Yes Indications: Change in bowel habits, guaiac-positive stool, epigastric pain Surgeon: Alexandria Jones Procedure Notes SCOAP/Timeout: Performed Procedure in detail: The patient was brought to the room and placed in left lateral decubitus position with all bony prominences padded. A bite block was positioned in the patient's mouth to protect the lips, teeth, and tongue for the procedure. A time-out was performed and then the patient was given procedural sedation starting with 4 mg of Versed and 100 mcg of fentanyl. Vitals were monitored throughout the procedure and remained stable. Once adequately sedated, the procedure was begun. The lubricated gastroscope was passed through the bite block and across the tongue and into the esophagus without incident. A tubular view of the esophagus was maintained as the scope was advanced through the esophagus and into the stomach. The scope was advanced through the stomach and to the pylorus. The scope was gently popped through the pylorus and into the duodenal bulb. The scope was flexed and advanced into the second and third portions of the duodenum. Moderate inflammation was seen in the duodenum and duodenal bulb. Biopsies were taken. The scope was withdrawn into the stomach. Appearance of mild gastritis, and polyps were seen in the stomach. Biopsies were taken of gastric mucosa and gastric polyps. The scope was retroflexed and the gastric cardia was examined. There was a Hill grade 2-3 hiatal hernia with moderate gaping of the GE junction around the scope. The scope was then straightened, and withdrawn into the esophagus. The Z-line is at 35 cm and appeared fairly normal. The distal esophagus appeared normal. Biopsies were taken. The scope was then withdrawn through the esophagus with a tubular view. The scope was then withdrawn from the patient. Attention was turned to the colonoscopy portion of the procedure. A rectal exam was performed revealing no abnormalities. The colonoscope was then introduced to the rectum and advanced to the cecum in the usual fashion. The cecum was identified by the appendiceal orifice, the mucosal tri-fold, and the ileocecal valve. The scope was then retracted while rotating side to side and examining each mucosal fold. A small polyp was removed at 45 cm. The patient has extensive diverticulosis without evidence of active diverticulitis. Her diverticulosis was most severe in the descending and sigmoid colon, but involve the entire colon cecum to rectum. For prep with moderate, some adherent stool to the rice of the colon. Therefore polyps less than 5 mm may have been missed due to stool obscuring the view of the colon wall. At the conclusion of the procedure retroflexion was performed and small grade 1-2 internal hemorrhoids without stigmata of bleeding were seen. The scope was then withdrawn from the rectum the procedure was concluded. The patient tolerated the procedure well and was transferred to the PACU in stable condition. Total of 10 mg of Versed and 200 micro g of fentanyl were given for the entire procedure Scope withdrawal time: 12 Sedation minutes: 49 Findings: diverticulosis (Extensive), gastritis (Low-grade, also duodenitis this present), hiatal hernia (Moderate, Hill grade 2-3) and polyp (Gastric and colonic) Specimen(s): other (Biopsies of duodenum, stomach, gastric polyps, distal esophagus, colon polyp at 45 cm) Complications: none Impression: Gastric polyps, mild gastritis, duodenitis, Z-line at 35 cm, fairly normal-looking, no significant distal esophagitis, moderate hiatal hernia. Severe diverticulosis throughout the entire colon, single polyp at 45 cm of the colon. Post-procedure Recommendations: Colonscopy in 5 years and Other recommendation (Timing of repeat EGD will depend on biopsy results) Follow up: as needed Disposition: PACU
[2020-09-07] MEDS: LIDOCAINE 4% SOLN 50 ML 20 ML TOP (13:10)
[2020-09-07] MEDS: MIDAZOLAM 5 MG/5 ML VIAL IV (13:35)
[2020-09-07] MEDS: fentaNYL 250 MCG/5 ML INJ IV (13:35)
== END 2020-09-07 14:46 | disposition home or self-care (01) ==
PROVIDERS: PCP Family Medicine; Referring Provider Surgery; Visit Provider Surgery
PROC: 0DJ08ZZ Inspection of Upper Intestinal Tract, Via Natural or Artificial Opening Endoscopic (ICD-10-PCS; CPT 43235; principal; 2020-09-07 13:00)
PROC: 0DJD8ZZ Inspection of Lower Intestinal Tract, Via Natural or Artificial Opening Endoscopic (ICD-10-PCS; CPT 45378; 2020-09-07 13:00)
DX: K64.0 First degree hemorrhoids (principal); K21.9 Gastro-esophageal reflux disease without esophagitis; K44.9 Diaphragmatic hernia without obstruction or gangrene; K29.50 Unspecified chronic gastritis without bleeding; K31.7 Polyp of stomach and duodenum; K57.30 Diverticulosis of large intestine without perforation or abscess without bleeding; K51.40 Inflammatory polyps of colon without complications
CPT/HCPCS: 45380; 43239; 99152; 99153; J2250; J3010

== ENCOUNTER → 2020-09-28 11:06 | Outpatient (CLI) | payer MEDICARE, SELFPAY ==
[2020-09-28] MEDS: COVID-19 VACC #1, MRNA(MOD) 100 MCG/0.5 ML VIAL IM (11:15)
== END ==
PROVIDERS: PCP Family Medicine; Visit Provider Internal Medicine
DX: Z23 Encounter for immunization (principal)
CPT/HCPCS: 0011A; 91301

== ENCOUNTER → 2020-10-12 10:03 | Outpatient (CLI) | payer MEDICARE, SELFPAY ==
[2020-10-12 12:22] LABS: COVID19 -Nasal RAPID Negative (Negative)
== END ==
PROVIDERS: PCP Family Medicine; Visit Provider Physical Medicine & Rehabilitation
DX: Z20.822 Contact with and (suspected) exposure to COVID-19 (principal)
CPT/HCPCS: 87635; C9803

== ENCOUNTER 2020-10-14 10:36 | Outpatient (CLI) | payer MEDICARE, SELFPAY ==
[2020-10-14] VITALS (8 sets, daily range): BP systolic 129–186; BP diastolic 58–93; PULSE 67–81; RESP 16–20; O2SAT 97–100
--- NOTE | 2020-10-14 10:39 | DI.RAD.S_ITS ---
PROCEDURE: PAIN L/S MED/LAT N RFA INDICATIONS: SPONDYLOSIS COMPARISON: [facility], , PAIN L/S MED/LAT N RFA, 05/20/2019, 8:44. FINDINGS: Fluoroscopic spot filming was performed to verify placement of spinal needles on the left at the L2, L3, and L4 level(s), as labeled on the films. Appropriate location(s) of the needle tip(s) was confirmed by injection of iodinated contrast. IMPRESSION: Intraprocedural examination within normal limits. Dictated by: Darren Thompson M.D. on 10/14/2020 at 11:21 Approved by: Darren Thompson M.D. on 10/14/2020 at 11:22
[2020-10-14] MEDS: fentaNYL 100 MCG/2 ML INJ 50 MCG IV (11:41)
[2020-10-14] MEDS: MIDAZOLAM 5 MG/5 ML VIAL IV (11:46)
[2020-10-14] MEDS: BUPIVACAINE 0.5% (PF) VIAL 5 ML INJ (11:47)
[2020-10-14] MEDS: LIDOCAINE 1% 20 ML INJ (11:47)
--- NOTE | 2020-10-14 12:49 | P.PCN_ITS ---
Date/Time/Diagnoses Date of procedure: 10/14/20 Time of procedure: 12:49 Pre-procedure diagnosis: 1. RECALCITRANT FACET ARTHROPATHY Post-procedure diagnosis: same Procedure Notes Procedure: 1. LEFT L2, L3 AND L4 MEDIAL BRANCH RADIOFREQUENCY NEUROTOMY Indications: Archie is referred by Dr. Vanegas for treatment of facet arthropathy. Physician: Marciano Segal Total Fluoroscopy time (seconds): 16 Total sedation minutes: 21 Complications: none Procedure in detail & Post-procedure care: DESCRIPTION OF PROCEDURE Left L2, L3 and L4 medial branch radio-frequency neurotomy The patient is well known to this clinic having undergone previous facet injections with good but temporary relief. The patient has experienced appropriate, concordant relief with previous facet and median branch blocks but the patient's pain has been recalcitrant to further conservative measures. Therefore, based upon the patient's relief and persistent symptoms, the patient is considered an appropriate candidate for facet rhizotomy. All of the patient's questions regarding the risks versus benefits of the procedure, including, but not limited to, bleeding, infection, temporary as well as lasting nerve injury, paralysis, stroke, and , as well treatment alternatives were answered to satisfaction. After obtaining informed consent, denial of pertinent drug allergies, as well as being made aware of the potential risks of bleeding, infection, spinal cord trauma, paralysis, temporary and permanent nerve damage, seizure, stroke, and possible , the patient was brought to the fluoroscopy suite and positioned prone on the fluoroscopy table. The lumbar region was prepped with Betadine and covered with a fenestrated drape in the usual sterile fashion. Appropriate monitors applied including pulse oximeter, pulse, and blood pressure for regular monitoring throughout the procedure. After review of previous anaesthesic history and IV conscious sedation the patient was deemed safe to proceed with today?s procedure with IV conscious sedation as ASA class II designation. Safety time-out was performed to confirm patient ID, procedure to be performed and site of procedure. IV sedation was accomplished with a combination of 4mg of Versed and 50mcg of Fentanyl administered by the RN after DO order, titrated to patient comfort during the course of the procedure while the patient remained responsive to all verbal commands. After local infiltration using 1% lidocaine, under fluoroscopic guidance, a 10- cm RF insulated needle with a 10-mm active tip was positioned parallel to the junction of the left the superior articulating process where the L2 medial branch resides. Needle placement was confirmed with sensory stimulation at 50 Hz, with motor stimulation of .5v on the left which produced local stimulation without radicular component. The stimulation was then increased to 2v with, once again, only local multifidus stimulation without radicular component. This was then followed by two discreet lesions performed at 80 degrees Celsius for 90 seconds each. The needle was then removed and the identical procedure was performed along the length of the left L3 medial branch with motor stimulation at .7v on the left. The identical procedure was once again performed along the length of the left L4 and medial branch with motor stimulation of .5v on the right. The patient tolerated the procedure well without signs or symptoms of complications prior to transfer to the recovery area continued monitoring without incident. The patient was then transferred to the recovery area where they were observed for an appropriate period of time after the injection. The patient reported a VAS score of 9 prior to the procedure and a post-procedure VAS of 0. POST OP INSTRUCTIONS The patient was provided a Pain Log to continue to record the patient's response to the target-specific procedure prior to the patient's follow-up visit with the referring physician. Additionally, specific post-injection care instructions and a contact number to our office were provided if concerns arise regarding possible complications associated with the procedure are suspected.
== END 2020-10-14 12:22 | disposition home or self-care (01) ==
PROVIDERS: PCP Family Medicine; Referring Provider Physical Medicine & Rehabilitation; Visit Provider Physical Medicine & Rehabilitation
DX: M47.817 Spondylosis without myelopathy or radiculopathy, lumbosacral region (principal); M48.061 Spinal stenosis, lumbar region without neurogenic claudication; Z98.1 Arthrodesis status
CPT/HCPCS: 64635; 64636; 99152; J2250; J3010

== ENCOUNTER → 2020-10-26 11:01 | Outpatient (CLI) | payer MEDICARE, SELFPAY ==
[2020-10-26] MEDS: COVID-19 VACC #2, MRNA(MOD) 100 MCG/0.5 ML VIAL IM (11:13)
== END ==
PROVIDERS: PCP Family Medicine; Visit Provider Internal Medicine
DX: Z23 Encounter for immunization (principal)
CPT/HCPCS: 0012A; 91301

== ENCOUNTER → 2020-12-24 13:13 | Outpatient (CLI) | payer MEDICARE, SELFPAY ==
--- NOTE | 2020-12-24 13:15 | DI.RAD.S_ITS ---
PROCEDURE: XR KNEE RT 3V INDICATIONS: RIGHT KNEE PAIN TECHNIQUE: 3 views of the knee were acquired. COMPARISON: [facility], , XR KNEE RT 3V, 04/12/2020, 11:12. FINDINGS: Bones: No fractures or dislocations. No suspicious bony lesions. Mild narrowing of the medial femorotibial joint and tricompartmental periarticular osteophyte formation. Soft tissues: Small joint effusion. No suspicious soft tissue calcifications. IMPRESSION: 1. Tricompartmental knee joint degeneration, most notably involving the medial femorotibial joint which appears similar to prior examination dated 04/12/2020 2. Small effusion. Dictated by: Grant Tovar [facility] Interpreted: Audie Dunbar MD on 12/24/2020 at 13:47 Approved by: Audie Dunbar M.D. on 12/24/2020 at 14:07
== END ==
PROVIDERS: PCP Family Medicine; Referring Provider Physical Medicine & Rehabilitation; Visit Provider Physical Medicine & Rehabilitation
DX: M17.11 Unilateral primary osteoarthritis, right knee (principal); M25.461 Effusion, right knee
CPT/HCPCS: 73562

== ENCOUNTER → 2021-05-11 12:27 | Outpatient (CLI) | payer MEDICARE, SELFPAY ==
--- NOTE | 2021-05-11 | DI.MG.S_ITS ---
BILATERAL DIGITAL SCREENING MAMMOGRAM 3D/2D WITH CAD: 05/11/2021 CLINICAL: Routine screening. Family history of breast cancer. Comparison is made to exams dated: 04/01/2020 mammogram, 02/12/2019 mammogram, and 02/08/2018 mammogram - [facility]. There are scattered fibroglandular elements in both breasts. Current study was also evaluated with a Computer Aided Detection (CAD) system. There are benign calcifications in both breasts. There also are benign vascular calcifications in both breasts. Additionally, there are benign post operative findings in the left breast. There is a mole marker on the left breast. There is a new 0.6 cm x 1 cm irregular asymmetry with an indistinct margin and fine calcifications in the left breast middle depth central to the nipple seen on the mediolateral oblique view only. No other significant masses, calcifications, or other findings are seen in either breast. IMPRESSION: INCOMPLETE: NEEDS ADDITIONAL IMAGING EVALUATION The new 0.6 cm x 1 cm irregular asymmetry in the left breast is indeterminate. Magnification views as well as additional views with possible ultrasound are recommended. This exam was interpreted at Station ID: [id number]. NOTE: For mammograms, a report in lay terms will be sent to the patient. Approximately 15% of breast malignancies will not be visualized mammographically. In the management of a palpable breast mass, a negative mammogram must not discourage biopsy of a clinically suspicious lesion. Electronically Signed By: Augusto Collins acr/:05/11/2021 13:42:36 letter sent: Additional Imaging Needed ACR BI-RADS Category 0: Incomplete [id number]
== END ==
PROVIDERS: PCP Family Medicine; Referring Provider Family Medicine; Visit Provider Family Medicine
DX: Z12.31 Encounter for screening mammogram for malignant neoplasm of breast; Z80.3 Family history of malignant neoplasm of breast; Z78.0 Asymptomatic menopausal state; Z90.722 Acquired absence of ovaries, bilateral; Z87.891 Personal history of nicotine dependence
CPT/HCPCS: 77063; 77067; 77080

== ENCOUNTER → 2021-05-27 13:13 | Outpatient (CLI) | payer MEDICARE, SELFPAY ==
--- NOTE | 2021-05-27 | DI.MG.S_ITS ---
UNILATERAL LEFT DIGITAL DIAGNOSTIC MAMMOGRAM 3D/2D WITH ADDITIONAL VIEWS: 05/27/2021 CLINICAL: Additional evaluation requested from prior study. Comparison is made to exams dated: 05/11/2021 mammogram, 04/01/2020 mammogram, and 02/12/2019 mammogram - [facility]. There are scattered fibroglandular elements in left breast. There is a 7 mm irregular asymmetry with fine calcifications in the left breast at 5 o'clock anterior depth. This is more prominent. This is still only seen in the LM or MLO view and not confirmed with blake. No other significant masses or calcifications are seen in the breast. IMPRESSION: INCOMPLETE: NEEDS ADDITIONAL IMAGING EVALUATION The 7 mm irregular asymmetry in the left breast remains indeterminate. An ultrasound is recommended. This was performed immediately following this exam. This exam was interpreted at Station ID: [id number]. NOTE: For mammograms, a report in lay terms will be sent to the patient. Approximately 15% of breast malignancies will not be visualized mammographically. In the management of a palpable breast mass, a negative mammogram must not discourage biopsy of a clinically suspicious lesion. Electronically Signed By: Carrie pablo/:05/27/2021 16:10:05 ACR BI-RADS Category 0: Incomplete [id number]
--- NOTE | 2021-05-27 14:45 | DI.US.S_ITS ---
Indications: Date: 05/27/2021 14:38 At the request of: JERRY HILL Procedure: US breast LT limited LIMITED ULTRASOUND OF LEFT BREAST: 05/27/2021 CLINICAL: Patient returns today to evaluate a focal asymmetry in the left breast. Comparison is made to exams dated: 05/27/2021 mammogram, 05/11/2021 mammogram, 04/01/2020 mammogram, 02/12/2019 mammogram, 02/08/2018 mammogram, and 01/25/2017 mammogram - [facility]. Real-time ultrasound of the left breast 4 o'clock region was performed. Tucker scale images of the realtime examination were reviewed. No significant abnormalities were seen sonographically in the left breast. Specifically, no finding to correspond to the patient's screening mammographic abnormality which was questionably persistent with additional mammographic views. IMPRESSION: PROBABLY BENIGN No sonographic abnormalities found. A follow-up left mammogram in 6 months is recommended to demonstrate stability of the screening mammography finding. Findings and recommendations were conveyed to the patient at time of exam. . This exam was interpreted at Station ID: [id number]. Electronically Signed By: Carrie pablo/:05/27/2021 16:14:32 letter sent: Followup Recommended Ultrasound BI-RADS: 3 Probably benign
== END ==
PROVIDERS: PCP Family Medicine; Referring Provider Family Medicine; Visit Provider Family Medicine
DX: N64.89 Other specified disorders of breast (principal); R92.8 Other abnormal and inconclusive findings on diagnostic imaging of breast; R92.1 Mammographic calcification found on diagnostic imaging of breast
CPT/HCPCS: 76642; 77065; G0279

== ENCOUNTER → 2022-01-02 11:49 | Outpatient (CLI) | payer MEDICARE, SELFPAY ==
--- NOTE | 2022-01-02 | DI.MG.S_ITS ---
UNILATERAL LEFT DIGITAL DIAGNOSTIC MAMMOGRAM 3D/2D: 01/02/2022 CLINICAL: Short term follow up for the left breast. Family history of breast cancer. Comparison is made to exams dated: 05/27/2021 ultrasound, 05/27/2021 mammogram, 05/11/2021 mammogram, and 04/01/2020 mammogram - [facility]. There are scattered fibroglandular elements in left breast. There are benign post operative findings in the left breast. There is a mole marker on the left breast. There is a 0.6 cm x 1 cm irregular asymmetry with an indistinct margin and grouped fine calcifications in the left breast middle depth central to the nipple seen on the mediolateral oblique view only. This is not significantly changed and was not seen on the prior ultrasound. No other significant masses or calcifications are seen in the breast. IMPRESSION: INCOMPLETE: NEEDS ADDITIONAL IMAGING EVALUATION The 0.6 cm x 1 cm irregular asymmetry in the left breast is probably benign. There were no previous sonographic correlate. A follow-up bilateral mammogram in 6 months is recommended to demonstrate stability. Findings and recommendations were conveyed to the patient during today's evaluation. This exam was interpreted at Station ID: [id number]. NOTE: For mammograms, a report in lay terms will be sent to the patient. Approximately 15% of breast malignancies will not be visualized mammographically. In the management of a palpable breast mass, a negative mammogram must not discourage biopsy of a clinically suspicious lesion. Electronically Signed By: Mateo Valencia M.D. aty/:01/02/2022 12:47:17 letter sent: Followup Recommended ACR BI-RADS Category 0: Incomplete 3340F
== END ==
PROVIDERS: PCP Family Medicine; Referring Provider Family Medicine; Visit Provider Family Medicine
DX: R92.8 Other abnormal and inconclusive findings on diagnostic imaging of breast (principal); Z80.3 Family history of malignant neoplasm of breast; N64.89 Other specified disorders of breast
CPT/HCPCS: 77065; G0279

== ENCOUNTER → 2022-05-01 09:42 | Outpatient (CLI) | payer MEDICARE, SELFPAY ==
--- NOTE | 2022-05-01 | DI.RAD.S_ITS ---
PROCEDURE: XR KNEE RT 3V INDICATIONS: PAIN IN RIGHT KNEE TECHNIQUE: 3 views of the knee were acquired. COMPARISON: [facility], , XR KNEE RT 3V, 12/24/2020, 13:13. [facility], , XR KNEE RT 3V, 04/12/2020, 11:12. FINDINGS: Bones: Medial joint space narrowing with medial osteophytes consistent with osteoarthritis. No fractures or dislocations. No suspicious bony lesions. Soft tissues: Small suprapatellar joint effusion. 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 Dictated by: Augusto Collins M.D. on 05/01/2022 at 11:10 Approved by: Augusto Collins M.D. on 05/01/2022 at 11:16
== END ==
PROVIDERS: PCP Family Medicine; Referring Provider Family Medicine; Visit Provider Family Medicine
DX: M25.561 Pain in right knee (principal); M17.11 Unilateral primary osteoarthritis, right knee
CPT/HCPCS: 73562

== ENCOUNTER → 2022-07-05 14:08 | Outpatient (CLI) | payer MEDICARE, SELFPAY ==
--- NOTE | 2022-07-05 14:10 | DI.MG.S_ITS ---
BILATERAL DIGITAL DIAGNOSTIC MAMMOGRAM 3D/2D SHORT-TERM FOLLOW-UP: 07/05/2022 CLINICAL: Short term follow up of the left breast, due for bilateral imaging. Comparison is made to exams dated: 01/02/2022 mammogram, 05/27/2021 mammogram, and 05/11/2021 mammogram - [facility]. There are scattered areas of fibroglandular density in both breasts (category b / 25%-50% glandular tissue). There are benign post operative findings in the left breast. There is a mole marker on the left breast. There is a 0.6 cm x 1 cm irregular asymmetry with an indistinct margin and grouped fine calcifications in the left breast middle depth central to the nipple seen on the mediolateral oblique view only. This area has not significantly changed and was not seen on the prior ultrasound. No other significant masses, calcifications, or other findings are seen in either breast. IMPRESSION: PROBABLY BENIGN The 0.6 cm x 1 cm irregular asymmetry in the left breast has not changed over several exams. It is probably benign. A follow-up left mammogram in 12 months is recommended. The patient will be due for bilateral mammograms at that same visit. Findings and recommendations were conveyed to the patient at time of exam. Based on the Tyrer Cuzick model (a risk assessment model) the patient's lifetime risk is 3.3% and her 10 year risk is 0.0%. According to the ACR, ACS, and NCCN guidelines, an annual breast MRI exam along with mammogram is recommended if the patient's lifetime risk is 20% or greater. This exam was interpreted at Station ID: [id number]. NOTE: For mammograms, a report in lay terms will be sent to the patient. Approximately 15% of breast malignancies will not be visualized mammographically. In the management of a palpable breast mass, a negative mammogram must not discourage biopsy of a clinically suspicious lesion. Electronically Signed By: Carrie pablo/:07/05/2022 15:03:20 letter sent: Followup Recommended ACR BI-RADS Category 3: Probably benign 3343F
== END ==
PROVIDERS: PCP Family Medicine; Referring Provider Family Medicine; Visit Provider Family Medicine
DX: R92.8 Other abnormal and inconclusive findings on diagnostic imaging of breast (principal); N64.89 Other specified disorders of breast
CPT/HCPCS: 77066; G0279

== ENCOUNTER → 2022-08-21 13:16 | Outpatient (CLI) | payer MEDICARE, SELFPAY ==
--- NOTE | 2022-08-21 13:17 | DI.RAD.S_ITS ---
PROCEDURE: XR LUMBAR SPINE MIN 4V INDICATIONS: BACK PAIN TECHNIQUE: 5 views of the lumbar spine were acquired, including bilateral oblique views. COMPARISON: [facility], CR, XR LUMBAR SPINE MIN 4V, 02/17/2019, 9:17. FINDINGS: Bones: 5 nonrib-bearing vertebrae are present. Again noted is prior left posterior fusion at L4 through S1 levels with intervertebral spacer placement. No evidence of hardware loosening or failure. Levoscoliosis of thoracolumbar spine is again seen unchanged from prior study. No acute compression fracture. Stable 6 mm anterolisthesis of L5 on S1 is seen unchanged from prior study. Degenerative endplate changes, loss of disc height bilateral facet arthrosis throughout lumbar spine is seen. Soft tissues: Overlying bowel gas pattern is normal. No suspicious soft tissue calcifications. Oblique images: No pars defects. Bilateral bony foraminal stenosis at L2-3 and L3-4 levels are seen. IMPRESSION: 1. Prior left posterior fusion at L4 through S1 levels unchanged from prior study. No evidence of hardware loosening or failure. 2. Degenerative disc disease throughout lumbar spine. Mild levoscoliosis of thoracolumbar spine and stable grade 1 anterolisthesis of L5 on S1. No acute compression fracture. 3. No gross pars defects. Suggestion of bilateral bony foraminal stenosis at L2-3 and L3-4 levels. Dictated by: Florentino Taylor M.D. on 08/21/2022 at 15:19 Approved by: Florentino Taylor M.D. on 08/21/2022 at 15:21
== END ==
PROVIDERS: PCP Family Medicine; Referring Provider Physical Medicine & Rehabilitation; Visit Provider Physical Medicine & Rehabilitation
DX: M47.27 Other spondylosis with radiculopathy, lumbosacral region (principal); M48.061 Spinal stenosis, lumbar region without neurogenic claudication; M51.16 Intervertebral disc disorders with radiculopathy, lumbar region; M43.17 Spondylolisthesis, lumbosacral region; M41.9 Scoliosis, unspecified; Z98.1 Arthrodesis status
CPT/HCPCS: 72110

== ENCOUNTER → 2023-07-19 13:06 | Outpatient (CLI) | payer MEDICARE, SELFPAY ==
--- NOTE | 2023-07-19 13:08 | DI.MG.S_ITS ---
BILATERAL DIGITAL DIAGNOSTIC MAMMOGRAM 3D/2D: 07/19/2023 CLINICAL: Short term follow up of the left breast, due for bilateral imaging. Comparison is made to exams dated: 07/05/2022 mammogram, 01/02/2022 mammogram, 05/27/2021 ultrasound, and 05/27/2021 mammogram - [facility]. There are scattered areas of fibroglandular density in both breasts (category b / 25%-50% glandular tissue). There are benign post operative findings in the left breast. There is a 0.6 cm x 1.0 cm irregular asymmetry with an indistinct margin and grouped calcifications in the left breast middle depth central to the nipple seen on the mediolateral oblique view only. This finding has not significantly changed since 05/27/2021 and was not seen on the prior ultrasound. No other significant masses, calcifications, or other findings are seen in either breast. IMPRESSION: BENIGN Left breast asymmetry in the middle central region, stable since 05/27/2021. This finding has demonstrated two years of stability and is consistent with a benign process. No mammographic evidence of malignancy. Return to annual mammogram screening schedule is recommended. Findings and recommendations were conveyed to the patient during today's evaluation. Based on the Tyrer Cuzick model (a risk assessment model) the patient's lifetime risk is 1.5% and her 10 year risk is 0.0%. According to the ACR, ACS, and NCCN guidelines, an annual breast MRI exam along with mammogram is recommended if the patient's lifetime risk is 20% or greater. This exam was interpreted at Station ID: [id number]. NOTE: For mammograms, a report in lay terms will be sent to the patient. Approximately 15% of breast malignancies will not be visualized mammographically. In the management of a palpable breast mass, a negative mammogram must not discourage biopsy of a clinically suspicious lesion. Electronically Signed By: Dinora Alatorre M.D., PH.D eb/:07/19/2023 14:23:27 letter sent: Normal Exam ACR BI-RADS Category 2: Benign Finding(s) 3342F
== END ==
PROVIDERS: PCP Family Medicine; Referring Provider Family Medicine; Visit Provider Family Medicine
DX: R92.8 Other abnormal and inconclusive findings on diagnostic imaging of breast (principal); N64.89 Other specified disorders of breast
CPT/HCPCS: 77066; G0279

== ENCOUNTER → 2023-09-27 11:52 | Outpatient (CLI) | payer MEDICARE, SELFPAY ==
--- NOTE | 2023-09-27 | DI.MRI.S_ITS ---
PROCEDURE: MR HEAD/BRAIN WO/W CON INDICATIONS: MEMORY CHANGES TECHNIQUE: Noncontrast axial T1 spin echo, axial T2 fast spin echo, sagittal and axial FLAIR, coronal T2 fast spin echo, axial gradient echo, axial diffusion and ADC through the brain. After the administration of contrast, axial and coronal and sagittal T1 spin echo with fat saturation through the brain. COMPARISON: None. FINDINGS: Image quality: Excellent. CSF spaces: Basal cisterns are patent. No extra-axial fluid collections. Ventricles are normal in size and shape. Brain: No midline shift. No intracranial bleeds or masses. No abnormal intracranial enhancement. There is cerebral volume loss for age. There is periventricular white matter chronic small vessel ischemic change. The brainstem appears normal. Diffusion-weighted images demonstrate no acute infarct. No chronic ischemic insults. Normal intravascular flow voids are present. Skull and face: Calvarial marrow is normal in signal. Orbits appear normal. Note is made of bilateral lens replacements. Sinuses: Sinuses and mastoids appear clear. IMPRESSION: Brain MRI within normal limits for age, with age-appropriate brain parenchymal volume loss and chronic small vessel ischemic change. No prior territorial infarct can be seen. No findings of acute or subacute infarction can be seen. No masses or abnormal enhancement can be seen. Dictated by: Darren Thompson M.D. on 09/27/2023 at 12:29 Approved by: Darren Thompson M.D. on 09/27/2023 at 12:30
== END ==
PROVIDERS: PCP Family Medicine; Referring Provider Family Medicine; Visit Provider Family Medicine
DX: R41.3 Other amnesia (principal)
CPT/HCPCS: 70553

== ENCOUNTER 2023-10-21 12:49 | Emergency (ER) | payer MEDICARE, SELFPAY ==
[2023-10-21 12:53] VITALS: BP 211/88; PULSE 89; RESP 18; TEMP 36.3; O2SAT 100; BMI 25.2
[2023-10-21 13:21] VITALS: PULSE 80; RESP 17
[2023-10-21 13:22] VITALS: BP 169/91; PULSE 79; RESP 17; O2SAT 99
[2023-10-21 13:30] VITALS: BP 161/86; PULSE 78; RESP 14; O2SAT 100
[2023-10-21 14:00] VITALS: BP 152/75; PULSE 76; RESP 16; O2SAT 99
--- NOTE | 2023-10-21 14:19 | ED.GENADULT ---
HPI - General Adult General Chief complaint: Hypertension Stated complaint: high B/P/ feet burning Time Seen by Provider: 10/21/23 14:03 Source: patient Mode of arrival: Ambulatory History of Present Illness HPI narrative: Patient 82 year old female history of diabetes, neuropathy, hypertension presenting today with elevated blood pressure and headache. She reports that about 2 weeks ago PCP took her off metoprolol she continues to be on amlodipine and losartan. She takes her blood pressure daily this morning she checked it systolic was 175 she checked it again couple hours later it remained 175. She felt like her brain was a little foggy headache. No visual changes no speech changes slurring of speech numbness tingling or weakness. She has no chest pain palpitations or shortness of breath. Now after being in the emergency department for 1 hour her blood pressure is 152/75, she feels 100% better. She has an appointment with her primary care provider tomorrow. She would actually just like to go home. Related Data Home Medications Medication Instructions Recorded Confirmed calcium citrate + Vitamin D 2 tab PO .qday 02/05/19 10/10/23 losartan 100 mg tablet 100 mg PO DAILY 02/05/19 10/10/23 omega-3 fatty acids 1,000 mg 2,000 mg PO DAILY 02/05/19 10/10/23 capsule (Fish Oil Concentrate) vitamin C with Zinc 1 mg PO DAILY 01/14/20 10/10/23 aspirin 81 mg tablet,delayed 81 mg PO DAILY 03/02/20 10/10/23 release (Adult Low Dose Aspirin) amlodipine 10 mg tablet 10 mg PO DAILY 11/29/22 10/10/23 omeprazole 40 mg capsule,delayed 40 mg PO DAILY 11/29/22 10/10/23 release trazodone 100 mg tablet 100 mg PO BEDTIME 11/29/22 10/10/23 sertraline 50 mg tablet 50 mg PO DAILY 04/02/23 10/10/23 atorvastatin 10 mg tablet 10 mg PO DAILY 09/17/23 10/10/23 hydrochlorothiazide 12.5 mg tablet 12.5 mg PO DAILY 09/17/23 10/10/23 meloxicam 15 mg tablet 15 mg PO DAILY 09/17/23 10/10/23 metoprolol succinate 25 mg 25 mg PO DAILY 10/10/23 10/10/23 tablet,extended release 24 hr Previous Rx's Medication Instructions Recorded diclofenac epolamine 1.3 % 1 patch transdermal BID #30 ea 02/08/21 transdermal 12 hour patch (Flector) gabapentin 600 mg tablet 600 mg PO BEDTIME #90 tabs 11/29/22 tramadol 50 mg tablet 50 mg PO BID PRN pain #42 tabs 04/02/23 Allergies Allergy/AdvReac Type Severity Reaction Status Date / Time hydrocodone Allergy Hives Verified 10/10/23 10:17 pregabalin [From Lyrica] Allergy Verified 10/10/23 10:17 oxycodone [From Percocet] AdvReac Hives Verified 10/10/23 10:17 Patient History Medical History Sensory peripheral neuropathy Scoliosis Right knee DJD Cervical radiculopathy Degenerative joint disease, right, foot Surgical History Status post surgery (06/22/14) History of tonsillectomy History of third molar tooth extraction Family History Unknown No pertinent family history Father Hypertension Heart disease Mother Heart disease Social History household members: significant other Smoking Status: Former smoker alcohol intake: current substance use type: does not use Smoking Status: Former smoker alcohol intake frequency: 0-2 drinks per day Alcohol type: wine Substance Use Type: does not use and prescription drug Exam Initial Vital Signs Initial Vital Signs: Vital Signs Temperature 97.3 F L 10/21/23 12:53 Pulse Rate 89 10/21/23 12:53 Respiratory Rate 18 10/21/23 12:53 Blood Pressure 211/88 H 10/21/23 12:53 Pulse Oximetry 100 10/21/23 12:53 Oxygen Delivery Method Room Air 10/21/23 12:53 GENERAL: Alert pleasant 82-year-old female and in no acute distress. HEENT: Head atraumatic,EOMI, pupils reactive, face symmetric, moist mucous membranes CARDIOVASCULAR: Regular rate and rhythm without murmurs, rubs or gallops. RESPIRATORY: Breath sounds equal bilaterally, no wheezes rales or rhonchi. EXTREMITIES: Normal range of motion, no clubbing or edema. Neurovascularly intact NEUROLOGICAL: Alert and oriented x4.Normal gait and speech. Cranial nerves II through XII grossly intact. Good [id number], good [id number], strength equal bilaterally, no dysarthria or aphasia, sensation in tact to soft touch bilaterally, no visual changes, no facial droop SKIN: Warm, dry, no laceration, no petechiae, no rashes or lesions. Course Orders Ordered: ED Orders 10/21/23 14:22 EKG-12 Lead Stat Vital Signs Vital signs: Vital Signs - 8 hr 10/21/23 12:53 10/21/23 13:21 10/21/23 13:22 Temperature 97.3 F L Pulse Rate 89 80 Respiratory Rate 18 17 Blood Pressure 211/88 H 169/91 H Pulse Oximetry 100 Oxygen Delivery Method Room Air 10/21/23 13:22 10/21/23 13:30 10/21/23 13:30 Temperature Pulse Rate 79 78 Respiratory Rate 17 14 Blood Pressure 161/86 H Pulse Oximetry 99 100 Oxygen Delivery Method Room Air 10/21/23 14:00 10/21/23 14:00 10/21/23 14:30 Temperature Pulse Rate 76 Respiratory Rate 16 Blood Pressure 152/75 H 161/79 H Pulse Oximetry 99 Oxygen Delivery Method Room Air 10/21/23 14:30 Temperature Pulse Rate 79 Respiratory Rate 13 Blood Pressure Pulse Oximetry 99 Oxygen Delivery Method Medical Decision Making [facility] Narrative Medical decision making narrative: Patient 82-year-old female presents today with elevated blood pressure in brain fog. She was recently taken off metoprolol but continues to take amlodipine and losartan. She reports that her blood pressure was controlled until today. Blood pressure has come down without any sort of intervention her brain fog has gone. She has no focal deficits to suggest stroke she has no chest pain or palpitations. She is offered blood work afraid of needles but really would just like to go home. She has an appointment with primary care provider tomorrow. At this time I think that this is very appropriate she is not having any concerning signs or symptoms. Blood pressure has come down. Recommend outpatient follow-up and management Discharge Plan Departure Patient Disposition: Home Clinical Impression: Hypertension Instructions: DI for High Blood Pressure Activity Restrictions/Additional Instructions: *You have been diagnosed with hypertension *What to do: At this time check your blood pressure tomorrow morning follow-up with Dr. Vanegas tomorrow as scheduled *Continue to take medications as directed *Follow up with your primary care provider in 2-3 days or call [phone] *Return to ER if you should have increasing headache vision change chest pain weakness difficulty speaking facial droop or any new, worsening or concerning symptoms Prescriptions: No Action diclofenac epolamine [Flector] 1.3 % patch 12 hour 1 patch transdermal BID Qty: 30 1RF aspirin [Adult Low Dose Aspirin] 81 mg Tablet,Delayed Release (Dr/Ec) 81 mg PO DAILY vitamin C with Zinc 1 mg PO DAILY sertraline 50 mg tablet 50 mg PO DAILY tramadol 50 mg tablet 50 mg PO BID PRN (Reason: pain) Qty: 42 2RF losartan 100 mg tablet 100 mg PO DAILY omega-3 fatty acids [Fish Oil Concentrate] 1,000 mg capsule 2,000 mg PO DAILY calcium citrate + Vitamin D 500 mg 2 tab PO .qday omeprazole 40 mg capsule,delayed release(DR/EC) 40 mg PO DAILY Patient Comments: TAKE 1 CAPSULE BY MOUTH ONCE DAILY trazodone 100 mg tablet 100 mg PO BEDTIME amlodipine 10 mg tablet 10 mg PO DAILY Patient Comments: TAKE 1 TABLET BY MOUTH EVERY DAY gabapentin 600 mg tablet 600 mg PO BEDTIME Qty: 90 1RF meloxicam 15 mg tablet 15 mg PO DAILY atorvastatin 10 mg tablet 10 mg PO DAILY hydrochlorothiazide 12.5 mg tablet 12.5 mg PO DAILY metoprolol succinate 25 mg tablet extended release 24 hr 25 mg PO DAILY Referrals: Marciano Vanegas MD [Primary Care Provider] - Stand Alone Forms: Patient Portal/API
[2023-10-21 14:30] VITALS: BP 161/79; PULSE 79; RESP 13; O2SAT 99
== END 2023-10-21 15:01 | disposition home or self-care (01) ==
PROVIDERS: Emergency Provider Emergency Medicine; PCP Family Medicine
DX: I10 Essential (primary) hypertension (principal); Z87.891 Personal history of nicotine dependence
CPT/HCPCS: 93005; 99282

== ENCOUNTER 2024-02-05 17:04 | Emergency (ER) | payer MEDICARE, SELFPAY ==
[2024-02-05] VITALS (11 sets, daily range): BP systolic 189–211; BP diastolic 86–99; PULSE 70–94; RESP 16–28; TEMP 36.3; O2SAT 99–100; BMI 23.0
--- NOTE | 2024-02-05 18:05 | DI.RAD.S_ITS ---
PROCEDURE: XR CHEST 1V INDICATIONS: Hypertension TECHNIQUE: One view of the chest was acquired. COMPARISON: [facility], CR, XR CHEST 2V, 06/16/2019, 10:41. FINDINGS: Surgical changes and devices: None. Lungs and pleura: Low lung volumes but otherwise lungs are clear. No pleural effusions or pneumothorax. Mediastinum: Mediastinal contours appear normal. Heart size is normal. Bones and chest wall: No suspicious bony lesions. Overlying soft tissues appear unremarkable. IMPRESSION: Low lung volumes but otherwise lungs are clear Approved by: Dinora Alatorre M.D.,Ph.D. on 02/05/2024 at 20:13
[2024-02-05 18:34] LABS: Add Manual Diff / Slide Review NO; Basophils Absolute Auto 100 /uL (0-100); Basophils Percent Auto 0.5 % (0-2); Eosinophils Absolute Auto 100 /uL (0-450); Eosinophils Percent Auto 1.3 % (2-4); Hematocrit 41.4 % (36-46); Lymphocytes Absolute Auto 1500 /uL (1100-4500); Lymphocytes Percent Auto 16.1 % (25-40); Mean Corpuscular HGB Conc 33.9 % (30-36); Mean Corpuscular Hemoglobin 31.5 PG (26-34); Mean Corpuscular Volume 93.1 fL (80-100); Monocytes Absolute Auto 700 /uL (0-900); Monocytes Percent Auto 6.8 % (3-14); Neutrophils Absolute Auto 7200 /uL (1500-7000); Neutrophils Percent Auto 75.3 % (50-75); Platelet Count 269 X10^3/uL (150-400); Red Blood Cell Count 4.44 X10^6/uL (4.0-5.2); Red Cell Distribution Width 13.8 % (11.6-14.8); White Blood Cell Count 9.6 X10^3/uL (4.5-11.0)
[2024-02-05 18:39] LABS: Chloride 104 mmol/L (98-107); HEMOLYSIS < 15 (0-50); Potassium 3.7 mmol/L (3.4-5.1); Sodium 138 mmol/L (137-145)
[2024-02-05 18:50] LABS: Troponin I < 0.012 ng/mL (0.01-0.034)
[2024-02-05 19:11] LABS: Alanine Aminotransferase 28 IU/L (<35); Albumin Globulin Ratio 1.7 (1.0-2.8); Alkaline Phosphatase 77 U/L (38-126); Aspartate Aminotransferase 32 IU/L (14-36); BUN Creatinine Ratio 21.7 (6-22); Bilirubin Total 0.6 mg/dL (0.2-1.3); Blood Urea Nitrogen 15 mg/dL (7-17); Calcium 10.1 mg/dL (8.4-10.2); Carbon Dioxide 22 mmol/L (22-32); Creatine Kinase 165 U/L (30-135); Estimated Glomerular Filt Rate > 60 mL/min (>60); Globulin 2.9 g/dL (1.7-4.1); Glucose 174 mg/dL (80-110); Lipase 208 U/L (23-300); Total Protein 7.9 g/dL (6.3-8.2)
[2024-02-05 19:44] LABS: Bacteria Urine Many (>30); RBC Urine 1-5/HPF (0-5/HPF); Urine Volume 10mL (spun)
[2024-02-05 19:45] LABS: Culture Indicated Urine Cult Not Indicated; Squamous Epithelial Cell Urine 0-1 /HPF (0-5/HPF); WBC Urine 0-1/HPF (0-5/HPF)
--- NOTE | 2024-02-05 21:16 | ED.GENADULT ---
HPI - General Adult General Chief complaint: Dizziness Stated complaint: BP High 170/90, dizzy Time Seen by Provider: 02/05/24 19:56 Source: patient Mode of arrival: Ambulatory Limitations: no limitations History of Present Illness HPI narrative: 83-year-old female. Has a history of high blood pressure. Is on blood pressure medications she normally takes in the morning although she forgot to take them this morning. She did take them early afternoon. Afterwards she became somewhat lightheaded. She took her blood pressure and it was elevated. States she does take her blood pressure at home on a regular basis and normally the systolic blood pressures in the 120s to 140 range. She denies chest pain. No headache. She describes it as more of a lightheadedness and rather than a room spinning sensation. No lower extremity swelling. Numbness and tingling in her upper and lower extremities. She does report quite a bit of a increase in stress recently given issues with the PET. She also states she has not been eating and drinking as much over the past couple days. Related Data Home Medications Medication Instructions Recorded Confirmed calcium citrate + Vitamin D 2 tab PO .qday 02/05/19 12/20/23 losartan 100 mg tablet 100 mg PO DAILY 02/05/19 12/20/23 omega-3 fatty acids 1,000 mg 2,000 mg PO DAILY 02/05/19 12/20/23 capsule (Fish Oil Concentrate) vitamin C with Zinc 1 mg PO DAILY 01/14/20 12/20/23 aspirin 81 mg tablet,delayed 81 mg PO DAILY 03/02/20 12/20/23 release (Adult Low Dose Aspirin) amlodipine 10 mg tablet 10 mg PO DAILY 11/29/22 12/20/23 omeprazole 40 mg capsule,delayed 40 mg PO DAILY 11/29/22 12/20/23 release trazodone 100 mg tablet 100 mg PO BEDTIME 11/29/22 12/20/23 sertraline 50 mg tablet 50 mg PO DAILY 04/02/23 12/20/23 atorvastatin 10 mg tablet 10 mg PO DAILY 09/17/23 12/20/23 hydrochlorothiazide 12.5 mg tablet 12.5 mg PO DAILY 09/17/23 12/20/23 meloxicam 15 mg tablet 15 mg PO DAILY 09/17/23 12/20/23 metoprolol succinate 25 mg 25 mg PO DAILY 10/10/23 12/20/23 tablet,extended release 24 hr buspirone 7.5 mg tablet 7.5 mg PO BID 12/20/23 12/20/23 Previous Rx's Medication Instructions Recorded diclofenac epolamine 1.3 % 1 patch transdermal BID #30 ea 02/08/21 transdermal 12 hour patch (Flector) gabapentin 600 mg tablet 600 mg PO BEDTIME #90 tabs 11/29/22 tramadol 50 mg tablet 50 mg PO BID PRN pain #42 tabs 11/14/23 Allergies Allergy/AdvReac Type Severity Reaction Status Date / Time hydrocodone Allergy Hives Verified 02/05/24 17:16 pregabalin [From Lyrica] Allergy Verified 02/05/24 17:16 oxycodone [From Percocet] AdvReac Hives Verified 02/05/24 17:16 Review of Systems Review of Systems ROS Unobtainable: All systems reviewed & are unremarkable except as noted in HPI and below Patient History Medical History Sensory peripheral neuropathy Scoliosis Right knee DJD Cervical radiculopathy Degenerative joint disease, right, foot Surgical History Status post surgery (06/22/14) History of tonsillectomy History of third molar tooth extraction Family History Unknown No pertinent family history Father Hypertension Heart disease Mother Heart disease Social History household members: significant other Smoking Status: Former smoker alcohol intake: current substance use type: does not use Smoking Status: Former smoker alcohol intake frequency: 0-2 drinks per day Alcohol type: wine Substance Use Type: does not use and prescription drug Exam Initial Vital Signs Initial Vital Signs: Vital Signs Temperature 97.3 F L 02/05/24 17:12 Pulse Rate 94 H 02/05/24 17:12 Respiratory Rate 16 02/05/24 17:12 Blood Pressure 211/94 H 02/05/24 17:12 Pulse Oximetry 100 02/05/24 17:12 Oxygen Delivery Method Room Air 02/05/24 17:12 Const General: cooperative, comfortable and No ill appearing HENPA Head: normal to inspection and normocephalic Resp Effort & Inspection: normal respiratory effort Auscultation: clear to auscultation bilaterally Cardio Rate: regular rate Rhythm: regular rhythm GI Inspection: normal to inspection and non-distended Skin General: no rashes or lesions noted Neuro General: patient alert, patient awake and moves all extremities Extrem General: capillary refill normal Course Orders Ordered: Discontinued Medications Labetalol HCl (Labetalol 20 Mg/4 Ml Syringe) 5 mg IV NOW ONE Stop: 02/05/24 21:17 Last Admin: 02/05/24 21:23 Dose: 5 mg Documented By: CLARISA Vital Signs Vital signs: Vital Signs - 8 hr 02/05/24 20:30 02/05/24 20:30 02/05/24 21:00 Pulse Rate 79 Respiratory Rate 20 Blood Pressure 207/95 H 208/98 H Pulse Oximetry 100 02/05/24 21:00 02/05/24 21:23 02/05/24 21:30 Pulse Rate 86 71 Respiratory Rate 21 24 Blood Pressure 208/99 H Pulse Oximetry 99 100 02/05/24 21:30 02/05/24 21:40 02/05/24 21:40 Pulse Rate 70 Respiratory Rate 20 Blood Pressure 189/86 H 189/91 H Pulse Oximetry 100 Medical Decision Making Lab Data Lab results reviewed: Yes I reviewed the patient's lab results. 02/05/24 17:44 02/05/24 17:44 Labs: Lab Results 02/05/24 02/05/24 Range/Units 17:44 17:45 WBC 9.6 (4.5-11.0) X10^3/uL RBC 4.44 (4.0-5.2) X10^6/uL Hgb 14.0 (12.0-16.0) g/dL Hct 41.4 (36-46) % MCV 93.1 (80-100) fL MCH 31.5 (26-34) PG MCHC 33.9 (30-36) % RDW 13.8 (11.6-14.8) % Plt Count 269 (150-400) X10^3/uL Neut % (Auto) 75.3 H (50-75) % Lymph % (Auto) 16.1 L (25-40) % [place] % (Auto) 6.8 (3-14) % Eos % (Auto) 1.3 L (2-4) % Baso % (Auto) 0.5 (0-2) % Neut # (Auto) 7200 H (8815-9830) /uL Lymph # (Auto) 1500 (3199-3014) /uL [place] # (Auto) 700 (0-900) /uL Eos # (Auto) 100 (0-450) /uL Baso # (Auto) 100 (0-100) /uL Sodium 138 (137-145) mmol/L Potassium 3.7 (3.4-5.1) mmol/L Chloride 104 (98-107) mmol/L Carbon Dioxide 22 (22-32) mmol/L BUN 15 (7-17) mg/dL Creatinine 0.69 (0.52-1.04) mg/dL Estimated GFR > 60 (>60) mL/min BUN/Creatinine Ratio 21.7 (6-22) Glucose 174 H (80-110) mg/dL Calcium 10.1 (8.4-10.2) mg/dL Total Bilirubin 0.6 (0.2-1.3) mg/dL AST 32 (14-36) IU/L ALT 28 (<35) IU/L Alkaline Phosphatase 77 (38-126) U/L Total Creatine Kinase 165 H (30-135) U/L Troponin I < 0.012 (0.01-0.034) ng/mL Total Protein 7.9 (6.3-8.2) g/dL Albumin 5.0 (3.5-5.0) g/dL Globulin 2.9 (1.7-4.1) g/dL Albumin/Globulin Ratio 1.7 (1.0-2.8) Lipase 208 (23-300) U/L Urine RBC 1-5/hpf (0-5/HPF) Urine WBC 0-1/hpf (0-5/HPF) Ur Squamous Epith Cells 0-1 /hpf (0-5/HPF) Urine Bacteria Many (>30) H (None) Ur Culture Indicated? Cult not indicated Vol Urine Centrifuged 10ml (spun) Urine Dip Bedside Urine Glucose Negative Bedside Urine Bilirubin - Negative Bedside Urine Ketone - Negative Urine Specific [place] 1.005 Bedside Urine Occult Blood + Bedside Urine pH 6.5 Bedside Urine Protein - Negative Bedside Urine Urobilinogen - Negative Bedside Urine Nitrite - Negative Bedside Urine Leukocytes - Negative Esterase Point of care testing: Urine Dip Bedside Urine Glucose Negative Bedside Urine Bilirubin - Negative Bedside Urine Ketone - Negative Urine Specific [place] 1.005 Bedside Urine Occult Blood + Bedside Urine pH 6.5 Bedside Urine Protein - Negative Bedside Urine Urobilinogen - Negative Bedside Urine Nitrite - Negative Bedside Urine Leukocytes - Negative Esterase Imaging Data Chest x-ray: Radiologist's Impression: PROCEDURE: XR CHEST 1V INDICATIONS: Hypertension TECHNIQUE: One view of the chest was acquired. COMPARISON: [facility], , XR CHEST 2V, 06/16/2019, 10:41. FINDINGS: Surgical changes and devices: None. Lungs and pleura: Low lung volumes but otherwise lungs are clear. No pleural effusions or pneumothorax. Mediastinum: Mediastinal contours appear normal. Heart size is normal. Bones and chest wall: No suspicious bony lesions. Overlying soft tissues appear unremarkable. IMPRESSION: Low lung volumes but otherwise lungs are clear ECG Data Attestation: I personally reviewed and interpreted this ECG as follows: Interpretation: Sinus rhythm Ventricular rate of 86 Normal axis Normal QRS Nonspecific ST T wave changes MDM Narrative Medical decision making narrative: Patient is hypertensive however low suspicion for CVA, TIA, ACS. Is not in fluid overload. Low suspicion for CHF. Her labs are unremarkable. Since she does know what her baseline blood pressure is at home which is normally in the 120s to 140 range she was given a dose of labetalol here in the emergency department. Her lightheadedness could be because of taking her blood pressure medications later in the day it could also be because of increasing stress related to the issues with her pet or potentially because she has not been eating and drinking very well over the past couple days. There was no indication for admission to hospital. Will not change any of her medications based on her symptoms today. She was given return precautions. She expressed understanding and agreement. Discharge Plan Departure Patient Disposition: Home Clinical Impression: Hypertension, Lightheadedness Instructions: High Blood Pressure, DI for Dizziness-Nonvertigo Activity Restrictions/Additional Instructions: Recommend that you continue to take all of your medications as directed. Continue to take your blood pressure at home and take your blood pressure medicines at home like we discussed. Contact your primary doctor for a follow-up. Return to the emergency department for new or worsening symptoms. Prescriptions: No Action diclofenac epolamine [Flector] 1.3 % patch 12 hour 1 patch transdermal BID Qty: 30 1RF tramadol 50 mg tablet 50 mg PO BID PRN (Reason: pain) Qty: 42 2RF aspirin [Adult Low Dose Aspirin] 81 mg Tablet,Delayed Release (Dr/Ec) 81 mg PO DAILY vitamin C with Zinc 1 mg PO DAILY sertraline 50 mg tablet 50 mg PO DAILY buspirone 7.5 mg tablet 7.5 mg PO BID losartan 100 mg tablet 100 mg PO DAILY omega-3 fatty acids [Fish Oil Concentrate] 1,000 mg capsule 2,000 mg PO DAILY calcium citrate + Vitamin D 500 mg 2 tab PO .qday omeprazole 40 mg capsule,delayed release(DR/EC) 40 mg PO DAILY Patient Comments: TAKE 1 CAPSULE BY MOUTH ONCE DAILY trazodone 100 mg tablet 100 mg PO BEDTIME amlodipine 10 mg tablet 10 mg PO DAILY Patient Comments: TAKE 1 TABLET BY MOUTH EVERY DAY gabapentin 600 mg tablet 600 mg PO BEDTIME Qty: 90 1RF meloxicam 15 mg tablet 15 mg PO DAILY atorvastatin 10 mg tablet 10 mg PO DAILY hydrochlorothiazide 12.5 mg tablet 12.5 mg PO DAILY metoprolol succinate 25 mg tablet extended release 24 hr 25 mg PO DAILY Referrals: Marciano Vanegas MD [Primary Care Provider] - Stand Alone Forms: Patient Portal/API
[2024-02-05] MEDS: LABETALOL 20 MG/4 ML SYRINGE 5 MG IV (21:23)
== END 2024-02-05 21:49 | disposition home or self-care (01) ==
PROVIDERS: Emergency Provider Emergency Medicine; PCP Family Medicine
DX: I10 Essential (primary) hypertension (principal); R42 Dizziness and giddiness
CPT/HCPCS: 36415; 71045; 80053; 81003; 81015; 82550; 83690; 84484; 85025; 93005; 96374; 99284

== ENCOUNTER → 2024-02-19 09:46 | Outpatient (CLI) | payer MEDICARE, SELFPAY ==
--- NOTE | 2024-02-19 10:20 | DI.RAD.S_ITS ---
PROCEDURE: XR DEXA AXIAL SKELETON INDICATIONS: Asymptomatic menopausal state COMPARISON: [facility], CR, XR DEXA AXIAL SKELETON, 05/11/2021, 12:48. FINDINGS: Left Hip: Bone mineral density 0.886 g/cm2, T score -0.5. There is interval 1.9% decrease in total left hip bone density. Left femoral Neck: Bone mineral density 0.743 g/cm2, T score -1.0. There is interval 1.9% decrease in left femoral neck bone density. Right Hip: Bone mineral density 0.885 g/cm2, T score -0.5. There is interval 3.4% decrease in right hip bone density. Right Femoral Neck: Bone mineral density 0.723 g/cm2, T score -1.1. There is interval 3.4% decrease in right femoral neck bone density. Left Forearm: Bone mineral density 0.646 g/cm2, T score -0.8. Fracture Risk Calculation (when applicable): 10-year fracture risk of a major osteoporotic fracture 17 % and of a hip fracture 3.5%. (T score greater or equal to -1.0 to: NORMAL) (T score from -1.1 to -2.4: OSTEOPENIA) (T score less than or equal to -2.5: OSTEOPOROSIS) IMPRESSION: Osteopenia with increased 10 year fracture risk. Follow-up guidelines as follows: Osteoporosis: Consider a repeat DEXA and Vertebral Fracture Assessment (VFA) exam in 2 years or sooner if medically necessary, to reassess this patient's status. Osteopenia: Consider a repeat DEXA in 2-3 years to reassess this patient's status, or if there is a new clinical indication. Normal: Consider a repeat DEXA in 5 years or sooner, or if there is a new clinical indication. All treatment decisions require clinical judgment and consideration of individual patient factors, including patient preferences, comorbidities, previous drug use, risk factors not captured in the FRAX model (e.g., frailty, falls, vitamin D deficiency, increased bone turnover, interval significant decline in bone density ) and possible under- or over-estimation of fracture risk by FRAX. In addition, the NOF Guide recommends that FDA-approved medical therapies be considered in postmenopausal women and men age >= 50 years with a: * Hip or vertebral (clinical or morphometric) fracture * T-score of <=-2.5 at the spine or hip * Ten-year fracture probability by FRAX of >= 3% for hip fracture or >=20% for major osteoporotic fracture. People with diagnosed cases of osteoporosis or at high risk for fracture should have regular bone mineral density tests. For patients eligible for Medicare, routine testing is allowed once every 2 years. The testing frequency can be increased to one year for patients who have rapidly progressing disease, those who are receiving or discontinuing medical therapy to restore bone mass, or have additional risk factors. Dictated by: Florentino Taylor M.D. on 02/19/2024 at 12:47 Approved by: Florentino Taylor M.D. on 02/19/2024 at 12:49
== END ==
LOC: RAD 09:46
PROVIDERS: PCP Family Medicine; Referring Provider Family Medicine; Visit Provider Family Medicine
DX: M85.851 Other specified disorders of bone density and structure, right thigh (principal); Z78.0 Asymptomatic menopausal state
CPT/HCPCS: 77080; 77081

== ENCOUNTER 2024-03-20 12:42 | Emergency (ER) | payer MEDICARE, SELFPAY ==
[2024-03-20] VITALS (13 sets, daily range): BP systolic 151–188; BP diastolic 73–86; PULSE 63–72; RESP 14–24; TEMP 36.6; O2SAT 98–100; BMI 23.0
--- NOTE | 2024-03-20 13:05 | EKG_ITS ---
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
[2024-03-20 13:41] LABS: Urine Volume 10mL (spun)
[2024-03-20 13:51] LABS: Bacteria Urine None Seen; Culture Indicated Urine Cult Not Indicated; RBC Urine 1-5/HPF (0-5/HPF); Squamous Epithelial Cell Urine 0-1 /HPF (0-5/HPF); WBC Urine None Seen (0-5/HPF)
--- NOTE | 2024-03-20 14:14 | ED.GENADULT ---
HPI - General Adult General Chief complaint: Hypertension Stated complaint: HTN,dizzy,GUPTA Time Seen by Provider: 03/20/24 12:54 Source: patient Mode of arrival: EMS History of Present Illness HPI narrative: Patient is an 83-year-old female who is here for evaluation of headache, dizziness and high blood pressure. She states her symptoms started this morning after she woke up. No chest pain. Some shortness of breath. She does state that she was feeling quite anxious about issues that are going on at home. No lower extremity swelling. No abdominal pain or nausea vomiting. No fevers. She has a history of high blood pressure. She has been taking all of her medications as directed. She was not on anticoagulation. She normally takes her blood pressure at home in his often in the 130 systolic range. Related Data Home Medications Medication Instructions Recorded Confirmed losartan 100 mg tablet 100 mg PO DAILY 02/05/19 02/20/24 vitamin C with Zinc 1 mg PO DAILY 01/14/20 02/20/24 amlodipine 10 mg tablet 10 mg PO DAILY 11/29/22 02/20/24 omeprazole 40 mg capsule,delayed 40 mg PO DAILY 11/29/22 02/20/24 release trazodone 100 mg tablet 100 mg PO BEDTIME 11/29/22 02/20/24 sertraline 50 mg tablet 50 mg PO DAILY 04/02/23 02/20/24 atorvastatin 10 mg tablet 10 mg PO DAILY 09/17/23 02/20/24 buspirone 15 mg tablet 15 mg PO BID 02/20/24 02/20/24 hydrochlorothiazide 25 mg tablet 25 mg PO DAILY 02/20/24 02/20/24 Previous Rx's Medication Instructions Recorded gabapentin 600 mg tablet 600 mg PO BEDTIME #90 tabs 11/29/22 celecoxib 200 mg capsule (Celebrex) 200 mg PO DAILY #30 caps 02/20/24 tramadol 50 mg tablet 50 mg PO BID PRN pain #42 tabs 02/20/24 Allergies Allergy/AdvReac Type Severity Reaction Status Date / Time hydrocodone Allergy Hives Verified 03/20/24 12:52 pregabalin [From Lyrica] Allergy Verified 03/20/24 12:52 oxycodone [From Percocet] AdvReac Hives Verified 03/20/24 12:52 Review of Systems Review of Systems ROS Unobtainable: All systems reviewed & are unremarkable except as noted in HPI and below Patient History Medical History Sensory peripheral neuropathy Scoliosis Right knee DJD Cervical radiculopathy Degenerative joint disease, right, foot Surgical History Status post surgery (06/22/14) History of tonsillectomy History of third molar tooth extraction Family History Unknown No pertinent family history Father Hypertension Heart disease Mother Heart disease Social History household members: significant other Smoking Status: Former smoker alcohol intake: current substance use type: does not use Smoking Status: Former smoker alcohol intake frequency: holidays/special occasions only Alcohol type: wine Substance Use Type: does not use Exam Initial Vital Signs Initial Vital Signs: Vital Signs Temperature 97.8 F 03/20/24 12:42 Pulse Rate 70 03/20/24 12:42 Respiratory Rate 14 03/20/24 12:42 Blood Pressure 188/80 H 03/20/24 12:42 Pulse Oximetry 100 03/20/24 12:42 Oxygen Delivery Method Room Air 03/20/24 12:42 Const General: cooperative, comfortable and No ill appearing HENMT Head: normal to inspection and normocephalic Resp Effort & Inspection: normal respiratory effort Auscultation: clear to auscultation bilaterally Cardio Rate: regular rate Rhythm: regular rhythm GI Inspection: normal to inspection and non-distended Skin General: no rashes or lesions noted Neuro General: patient alert, patient awake, patient oriented x3 and moves all extremities Extrem General: No edema Course Orders Ordered: ED Orders 03/20/24 12:50 Complete Blood Count AUTO DIFF Stat Comprehensive Metabolic Panel Stat Lipase Stat Troponin & CK Cardiac Panel Stat 03/20/24 13:05 EKG-12 Lead Stat 03/20/24 13:10 Urine Microscopic Stat 03/20/24 14:15 CT head/brain wo con Stat 03/20/24 14:36 XR chest 1V Stat Discontinued Medications Lorazepam (Lorazepam 0.5 Mg Tablet) 1 mg PO NOW ONE Stop: 03/20/24 14:34 Last Admin: 07/18/24 14:58 Dose: 1 mg Documented By: JOY Vital Signs Vital signs: Vital Signs - 8 hr 03/20/24 12:42 03/20/24 12:47 03/20/24 13:00 Temperature 97.8 F Pulse Rate 70 69 Respiratory Rate 14 17 Blood Pressure 188/80 H 151/73 H Pulse Oximetry 100 100 Oxygen Delivery Method Room Air 03/20/24 13:00 03/20/24 13:10 03/20/24 13:10 Temperature Pulse Rate 71 72 Respiratory Rate 20 Blood Pressure 169/80 H Pulse Oximetry 100 98 Oxygen Delivery Method 03/20/24 13:26 03/20/24 13:26 03/20/24 13:30 Temperature Pulse Rate 69 Respiratory Rate 20 Blood Pressure 173/78 H 168/79 H Pulse Oximetry 98 Oxygen Delivery Method 03/20/24 13:30 03/20/24 14:00 Temperature Pulse Rate 69 69 Respiratory Rate 17 24 Blood Pressure Pulse Oximetry 100 100 Oxygen Delivery Method Medical Decision Making Lab Data Lab results reviewed: Yes I reviewed the patient's lab results. 03/20/24 12:50 03/20/24 12:50 Labs: Lab Results 03/20/24 03/20/24 Range/Units 12:50 13:10 WBC 9.9 (4.5-11.0) X10^3/uL RBC 4.41 (4.0-5.2) X10^6/uL Hgb 13.6 (12.0-16.0) g/dL Hct 40.2 (36-46) % MCV 91.2 (80-100) fL MCH 30.9 (26-34) PG MCHC 33.9 (30-36) % RDW 13.1 (11.6-14.8) % Plt Count 235 (150-400) X10^3/uL Neut % (Auto) 83.8 H (50-75) % Lymph % (Auto) 10.4 L (25-40) % [place] % (Auto) 5.2 (3-14) % Eos % (Auto) 0.5 L (2-4) % Baso % (Auto) 0.1 (0-2) % Neut # (Auto) 8300 H (5953-0438) /uL Lymph # (Auto) 1000 L (7080-6397) /uL [place] # (Auto) 500 (0-900) /uL Eos # (Auto) 100 (0-450) /uL Baso # (Auto) 0 (0-100) /uL Sodium 121 L (137-145) mmol/L Potassium 3.2 L (3.4-5.1) mmol/L Chloride 90 L (98-107) mmol/L Carbon Dioxide 19 L (22-32) mmol/L BUN 12 (7-17) mg/dL Creatinine 0.58 (0.52-1.04) mg/dL Estimated GFR > 60 (>60) mL/min BUN/Creatinine Ratio 20.7 (6-22) Glucose 138 H (80-110) mg/dL Calcium 9.3 (8.4-10.2) mg/dL Total Bilirubin 0.8 (0.2-1.3) mg/dL AST 58 H (14-36) IU/L ALT 28 (<35) IU/L Alkaline Phosphatase 75 (38-126) U/L Total Creatine Kinase 435 H (30-135) U/L Troponin I < 0.012 (0.01-0.034) ng/mL Total Protein 7.5 (6.3-8.2) g/dL Albumin 4.9 (3.5-5.0) g/dL Globulin 2.6 (1.7-4.1) g/dL Albumin/Globulin Ratio 1.9 (1.0-2.8) Lipase 286 (23-300) U/L Urine RBC 1-5/hpf (0-5/HPF) Urine WBC None seen (0-5/HPF) Ur Squamous Epith Cells 0-1 /hpf (0-5/HPF) Urine Bacteria None seen (None) Ur Culture Indicated? Cult not indicated Vol Urine Centrifuged 10ml (spun) Urine Dip Bedside Urine Glucose Negative Bedside Urine Bilirubin - Negative Bedside Urine Ketone - Negative Urine Specific [place] 1.005 Bedside Urine Occult Blood +/- Bedside Urine pH 7.0 Bedside Urine Protein - Negative Bedside Urine Urobilinogen - Negative Bedside Urine Nitrite - Negative Bedside Urine Leukocytes - Negative Esterase Point of care testing: Urine Dip Bedside Urine Glucose Negative Bedside Urine Bilirubin - Negative Bedside Urine Ketone - Negative Urine Specific [place] 1.005 Bedside Urine Occult Blood +/- Bedside Urine pH 7.0 Bedside Urine Protein - Negative Bedside Urine Urobilinogen - Negative Bedside Urine Nitrite - Negative Bedside Urine Leukocytes - Negative Esterase Imaging Data CT scan - head: Radiologist's Impression: PROCEDURE: CT HEAD/BRAIN WO CON INDICATIONS: Hypertension and headache TECHNIQUE: Noncontrast 4.5 mm thick angled axial sections acquired from the foramen magnum to the vertex, with coronal and sagittal reformats. For radiation dose reduction, the following was used: automated exposure control, adjustment of mA and/or kV according to patient size. COMPARISON: None. FINDINGS: Image quality: Diagnostic. CSF spaces: Basal cisterns are patent. No extra-axial fluid collections. The ventricles are symmetric in size and shape. Brain: No intracranial bleeds or masses. There is cerebral volume loss for age, with resultant ventricular and sulcal prominence. There are very mild, age-appropriate periventricular and deep white matter chronic small vessel ischemic changes. There is intracranial internal carotid artery atherosclerosis. Skull and face: Calvarium and visualized facial bones appear intact, without suspicious lesions. Sinuses: Visualized sinuses and mastoids are clear. IMPRESSION: No acute intracranial pathology. ECG Data Attestation: I personally reviewed and interpreted this ECG as follows: Interpretation: Sinus rhythm Ventricular rate is 71 Normal axis Normal QRS LVH Nonspecific ST T wave changes MDM Narrative Medical decision making narrative: Here in the emergency department after the Ativan patient states she was feeling much better. Her headache is now almost gone. Her CT scan showed no signs of acute pathology. Low suspicion for ACS. Not in heart failure. Suspect that some of her symptoms today are related to anxiety. She admits that she does have quite a few stressors in her life. Plan will be is to discharge patient home with instructions for a follow-up with her primary doctor. We discussed the importance of taking her blood pressure at home. She was given return precautions. She expressed understanding and agreement. Discharge Plan Departure Patient Disposition: Home Clinical Impression: Hypertension Instructions: DI for High Blood Pressure Activity Restrictions/Additional Instructions: Continue to take all of your medications as directed. Recommend that you contact your primary care doctor for a follow-up. Continue to take your blood pressure at home and record the results like we discussed. Return to the emergency department for new or worsening symptoms. Prescriptions: No Action vitamin C with Zinc 1 mg PO DAILY sertraline 50 mg tablet 50 mg PO DAILY hydrochlorothiazide 25 mg tablet 25 mg PO DAILY buspirone 15 mg tablet 15 mg PO BID celecoxib [Celebrex] 200 mg capsule 200 mg PO DAILY Qty: 30 2RF tramadol 50 mg tablet 50 mg PO BID PRN (Reason: pain) Qty: 42 2RF losartan 100 mg tablet 100 mg PO DAILY omeprazole 40 mg capsule,delayed release(DR/EC) 40 mg PO DAILY Patient Comments: TAKE 1 CAPSULE BY MOUTH ONCE DAILY trazodone 100 mg tablet 100 mg PO BEDTIME amlodipine 10 mg tablet 10 mg PO DAILY Patient Comments: TAKE 1 TABLET BY MOUTH EVERY DAY gabapentin 600 mg tablet 600 mg PO BEDTIME Qty: 90 1RF atorvastatin 10 mg tablet 10 mg PO DAILY Referrals: Marciano Vanegas MD [Primary Care Provider] - Stand Alone Forms: Patient Portal/API
[2024-03-20 14:22] LABS: Add Manual Diff / Slide Review NO; Basophils Absolute Auto 0 /uL (0-100); Basophils Percent Auto 0.1 % (0-2); Eosinophils Absolute Auto 100 /uL (0-450); Eosinophils Percent Auto 0.5 % (2-4); Hematocrit 40.2 % (36-46); Hemoglobin 13.6 g/dL (12.0-16.0); Lymphocytes Absolute Auto 1000 /uL (1100-4500); Lymphocytes Percent Auto 10.4 % (25-40); Mean Corpuscular HGB Conc 33.9 % (30-36); Mean Corpuscular Hemoglobin 30.9 PG (26-34); Mean Corpuscular Volume 91.2 fL (80-100); Monocytes Absolute Auto 500 /uL (0-900); Monocytes Percent Auto 5.2 % (3-14); Neutrophils Absolute Auto 8300 /uL (1500-7000); Neutrophils Percent Auto 83.8 % (50-75); Platelet Count 235 X10^3/uL (150-400); Red Blood Cell Count 4.41 X10^6/uL (4.0-5.2); Red Cell Distribution Width 13.1 % (11.6-14.8); White Blood Cell Count 9.9 X10^3/uL (4.5-11.0)
[2024-03-20 14:27] LABS: Alanine Aminotransferase 28 IU/L (<35); Albumin 4.9 g/dL (3.5-5.0); Albumin Globulin Ratio 1.9 (1.0-2.8); Alkaline Phosphatase 75 U/L (38-126); Aspartate Aminotransferase 58 IU/L (14-36); BUN Creatinine Ratio 20.7 (6-22); Bilirubin Total 0.8 mg/dL (0.2-1.3); Blood Urea Nitrogen 12 mg/dL (7-17); Calcium 9.3 mg/dL (8.4-10.2); Carbon Dioxide 19 mmol/L (22-32); Chloride 90 mmol/L (98-107); Creatine Kinase 435 U/L (30-135); Estimated Glomerular Filt Rate > 60 mL/min (>60); Globulin 2.6 g/dL (1.7-4.1); Glucose 138 mg/dL (80-110); HEMOLYSIS 29 (0-50); Lipase 286 U/L (23-300); Potassium 3.2 mmol/L (3.4-5.1); Sodium 121 mmol/L (137-145); Total Protein 7.5 g/dL (6.3-8.2)
--- NOTE | 2024-03-20 14:36 | DI.RAD.S_ITS ---
PROCEDURE: XR CHEST 1V INDICATIONS: SOB TECHNIQUE: One view of the chest was acquired. COMPARISON: [facility], ZAYDA, XR CHEST 1V, 02/05/2024, 18:45. [facility], ZAYDA, XR CHEST 2V, 06/16/2019, 10:41. FINDINGS: Surgical changes and devices: None. Lungs and pleura: Lungs are clear. No pleural effusions or pneumothorax. Mediastinum: Mediastinal contours appear normal. Heart size is normal. Bones and chest wall: No suspicious bony lesions. Overlying soft tissues appear unremarkable. IMPRESSION: No acute cardiopulmonary abnormality is seen. Dictated by: Vinay Ulloa M.D. on 03/20/2024 at 15:40 Approved by: Vinay Ulloa M.D. on 03/20/2024 at 15:41
[2024-03-20 14:39] LABS: Troponin I < 0.012 ng/mL (0.01-0.034)
[2024-03-20] MEDS: LORazepam 0.5 MG TABLET 1 MG PO (14:58)
== END 2024-03-20 16:53 | disposition home or self-care (01) ==
PROVIDERS: Emergency Provider Emergency Medicine; PCP Family Medicine
DX: I10 Essential (primary) hypertension (principal); R42 Dizziness and giddiness; R51.9 Headache, unspecified; R06.02 Shortness of breath; R07.9 Chest pain, unspecified
CPT/HCPCS: 36415; 51798; 70450; 71045; 80053; 81003; 81015; 82550; 83690; 84484; 85025; 93005; 99284

== ENCOUNTER 2024-03-22 21:08 | Inpatient (IN) | payer MEDICARE, SELFPAY ==
[2024-03-22] VITALS (8 sets, daily range): BP systolic 166–206; BP diastolic 67–88; PULSE 65–85; RESP 18–25; TEMP 34.5–36.4; O2SAT 95–99; BMI 25.6
[2024-03-22 21:33] LABS: Add Manual Diff / Slide Review NO; Basophils Absolute Auto 100 /uL (0-100); Basophils Percent Auto 0.4 % (0-2); Eosinophils Absolute Auto 100 /uL (0-450); Eosinophils Percent Auto 0.8 % (2-4); Hematocrit 37.6 % (36-46); Hemoglobin 13.4 g/dL (12.0-16.0); Lymphocytes Absolute Auto 1600 /uL (1100-4500); Lymphocytes Percent Auto 11.3 % (25-40); Mean Corpuscular HGB Conc 35.6 % (30-36); Mean Corpuscular Hemoglobin 31.5 PG (26-34); Mean Corpuscular Volume 88.5 fL (80-100); Monocytes Absolute Auto 900 /uL (0-900); Monocytes Percent Auto 6.3 % (3-14); Neutrophils Absolute Auto 11900 /uL (1500-7000); Neutrophils Percent Auto 81.2 % (50-75); Platelet Count 224 X10^3/uL (150-400); Red Blood Cell Count 4.24 X10^6/uL (4.0-5.2); White Blood Cell Count 14.6 X10^3/uL (4.5-11.0)
--- NOTE | 2024-03-22 21:33 | EKG_ITS ---
[address] [address] Test Date: 2024-03-22 Pat Name: Archie Chopra Department: Room: 221 Gender: Female Primary Care Pediatrician: ADRIA : 1940 Requested By: Order Number: [id number] Reading MD: Frank Shah Measurements Intervals Bailey Rate: 70 P: 48 [place]: 148 QRS: 1 QRSD: 92 T: 79 QT: 448 QTc: 483 Interpretive Statements Normal sinus rhythm Moderate voltage criteria for LVH, may be normal variant ( R in aVL , Colin product ) ST & T wave abnormality, consider anterolateral ischemia Artifact limits interpretation ability Electronically Signed On 03-23-2024 8:27:56 PDT by Frank Shah
[2024-03-22 21:36] LABS: BUN Creatinine Ratio 30.5 (6-22); Blood Urea Nitrogen 18 mg/dL (7-17); Calcium 9.3 mg/dL (8.4-10.2); Carbon Dioxide 18 mmol/L (22-32); Estimated Glomerular Filt Rate > 60 mL/min (>60); Glucose 134 mg/dL (80-110); HEMOLYSIS < 15 (0-50)
[2024-03-22 21:43] LABS: Chloride 80 mmol/L (98-107)
[2024-03-22 21:47] LABS: Potassium 2.5 mmol/L (3.4-5.1); Sodium 113 mmol/L (137-145)
[2024-03-22 21:48] LABS: Troponin I < 0.012 ng/mL (0.01-0.034)
--- NOTE | 2024-03-22 21:48 | PC.NURSE ---
Dr Ramirez notified of sodium of 113 and K of 20.5
[2024-03-22] MEDS: POTASSIUM CHLORIDE IN WATER 10 MEQ/100 ML PIGGYBACK 100 MEQ IV ×2 (21:56→23:08)
--- NOTE | 2024-03-22 22:00 | PC.NURSE ---
Dr Fuentes notified of Na level of 113 and potassium of 2.5
[2024-03-22 22:25] LABS: Appearance Urine UA CLEAR; Bilirubin Urine UA NEGATIVE (NEGATIVE); Glucose Urine UA NEGATIVE (Negative); Ketones Urine UA TRACE (NEGATIVE); Leukocyte Esterase Urine UA NEGATIVE (NEGATIVE); Nitrite Urine UA NEGATIVE (Negative); Occult Blood Urine UA 1+ (Negative); Protein Urine UA NEGATIVE (Negative); Specific Gravity Urine UA <=1.005 (1.000-1.035); Urobilinogen Urine UA 0.2 E.U./dL (0.2)
[2024-03-22 22:32] LABS: Color Urine UA Straw; pH Urine UA 6.5 (4.5-8.0)
--- NOTE | 2024-03-22 22:34 | ED.WEAKNESS ---
HPI - Weakness General Chief complaint: Weakness Stated complaint: weak & dizzy Time Seen by Provider: 03/22/24 21:49 Source: patient Mode of arrival: EMS History of Present Illness HPI Narrative: 83-year-old female admits to multiple episodes clear watery diarrhea 2 days ago, feeling weak and dizzy, still taking her hydrochlorothiazide and other chronic medications. She felt weak through the day today. No focal weakness to the face arm or leg, weakness is generalized. She denies fevers or chills. She denies pain to the chest abdomen and pelvis back neck extremities. She denies black or red stools. She denies pain with urination or frequency of urination. No change in medications. She denies abdominal pain. Related Data Home Medications Medication Instructions Recorded Confirmed losartan 100 mg tablet 100 mg PO DAILY 02/05/19 03/23/24 vitamin C with Zinc 1 mg PO DAILY 01/14/20 02/20/24 amlodipine 10 mg tablet 10 mg PO DAILY 11/29/22 03/23/24 omeprazole 40 mg capsule,delayed 40 mg PO DAILY 11/29/22 03/23/24 release trazodone 100 mg tablet 100 mg PO BEDTIME 11/29/22 03/23/24 sertraline 50 mg tablet 50 mg PO DAILY 04/02/23 03/23/24 atorvastatin 10 mg tablet 10 mg PO DAILY 09/17/23 03/23/24 buspirone 15 mg tablet 15 mg PO BID 02/20/24 03/23/24 hydrochlorothiazide 25 mg tablet 25 mg PO DAILY 02/20/24 03/23/24 Previous Rx's Medication Instructions Recorded gabapentin 600 mg tablet 600 mg PO BEDTIME #90 tabs 11/29/22 celecoxib 200 mg capsule (Celebrex) 200 mg PO DAILY #30 caps 02/20/24 tramadol 50 mg tablet 50 mg PO BID PRN pain #42 tabs 02/20/24 Allergies Allergy/AdvReac Type Severity Reaction Status Date / Time hydrocodone Allergy Hives Verified 03/20/24 12:52 pregabalin [From Lyrica] Allergy Verified 03/20/24 12:52 oxycodone [From Percocet] AdvReac Hives Verified 03/20/24 12:52 Review of Systems Review of Systems Narrative: see HPI Patient History Medical History Sensory peripheral neuropathy Scoliosis Right knee DJD Cervical radiculopathy Degenerative joint disease, right, foot Surgical History Status post surgery (06/22/14) History of tonsillectomy History of third molar tooth extraction Family History Unknown No pertinent family history Father Hypertension Heart disease Mother Heart disease Social History household members: significant other Smoking Status: Former smoker alcohol intake: current substance use type: does not use Smoking Status: Former smoker alcohol intake frequency: holidays/special occasions only Alcohol type: wine Substance Use Type: does not use Exam Narrative Exam Narrative: GENERAL: Well-developed patient, in mild distress. Hypothermia on triage noted HEAD: Atraumatic. Normocephalic. EYES: Pupils equal round and reactive. Extraocular motions intact. No scleral icterus. No injection or drainage. ENT: Nose without bleeding, purulent drainage. Throat without erythema, tonsillar hypertrophy or exudate. Airway patent. NECK: Trachea midline. Non tender CARDIOVASCULAR: Regular rate and rhythm without murmurs, gallops, or rubs. RESPIRATORY: Clear to auscultation. Breath sounds equal bilaterally. No wheezes, rales, or rhonchi. GASTROINTESTINAL: Abdomen soft, non-tender, nondistended. EXTREMITIES: No edema or joint tenderness. BACK: Nontender without deformity or crepitance. No flank tenderness. NEURO: AOx3. Neuro exam grossly nonfocal SKIN: No rash or erythema of visible areas Initial Vital Signs Initial Vital Signs: Vital Signs Temperature 94.1 F L 03/22/24 21:10 Pulse Rate 70 03/22/24 21:10 Respiratory Rate 18 03/22/24 21:10 Blood Pressure 206/88 H 03/22/24 21:10 Pulse Oximetry 99 03/22/24 21:10 Oxygen Delivery Method Room Air 03/22/24 21:10 Course Orders Ordered: ED Orders 03/22/24 21:18 Basic Metabolic Panel Stat Complete Blood Count AUTO DIFF Stat Troponin I Stat 03/22/24 21:24 EKG-12 Lead Stat 03/22/24 21:50 Osmolality, Serum Stat 03/22/24 22:16 Osmolality Urine Stat Sodium Urine Random Stat Urinalysis and Microscopic Stat Urine Culture Stat 03/22/24 22:42 Urine Culture Stat 03/22/24 22:52 Blood Culture Stat Hydrocodone Bitart/Acetaminophen (Hydrocodone/Acet 5/325 Tablet) 2 tab PO Q4HR PRN PRN Reason: Pain, Severe (7-10) Hydrocodone Bitart/Acetaminophen (Hydrocodone/Acet 5/325 Tablet) 1 tab PO Q4HR PRN PRN Reason: Pain, Moderate (4-6) Last Admin: 03/23/24 02:31 Dose: 1 tab Documented By: SR Clonidine HCl (Clonidine 0.1 Mg Tablet) 0.2 mg PO BID VIRAJ Last Admin: 03/23/24 02:31 Dose: 0.2 mg Documented By: SR Gabapentin (Gabapentin 600 Mg Tablet) 600 mg PO BEDTIME VIRAJ Last Admin: 03/23/24 02:30 Dose: 600 mg Documented By: Sodium Chloride (Normal Saline 0.9%) 1,000 mls @ 100 mls/hr IV CONT VIRAJ Last Infusion: 03/23/24 02:36 Dose: 100 mls/hr Documented By: Admin: 03/23/24 00:43 Dose: 150 mls/hr Documented By: Admin: 03/22/24 23:12 Dose: Not Given Documented By: Potassium Chloride/Sodium Chloride (Ns With Kcl 20 Meq) 1,000 mls @ 100 mls/hr IV CONT VIRAJ Last Admin: 03/23/24 02:11 Dose: Not Given Documented By: Ondansetron HCl (Ondansetron 4 Mg/2 Ml Inj) 4 mg IV Q6HR PRN PRN Reason: Nausea And Vomiting Last Admin: 03/22/24 23:26 Dose: 4 mg Documented By: Discontinued Medications Hydrocodone Bitart/Acetaminophen (Hydrocodone/Acet 10/325 Tablet) 1 tab PO Q4HR PRN PRN Reason: Pain, Moderate (4-6) Gabapentin (Gabapentin 600 Mg Tablet) 600 mg PO BEDTIME VIRAJ POTASSIUM CHLORIDE IN WATER (Potassium Cl 10 Meq/100 Ml Bailee) 10 meq in 100 mls @ 100 mls/hr IV Q1H VIRAJ Stop: 03/23/24 01:59 Last Admin: 03/23/24 02:36 Dose: 100 mls/hr Documented By: Infusion: 03/23/24 01:49 Dose: Infused Documented By: Admin: 03/23/24 00:49 Dose: 100 mls/hr Documented By: Infusion: 03/23/24 00:08 Dose: Infused Documented By: Admin: 03/22/24 23:08 Dose: 100 mls/hr Documented By: Infusion: 03/22/24 23:08 Dose: Infused Documented By: Infusion: 03/22/24 23:08 Dose: 100 mls/hr Documented By: Admin: 03/22/24 21:56 Dose: 100 mls/hr Documented By: Ceftriaxone Sodium 1,000 mg/ (Sodium Chloride) 100 mls @ 200 mls/hr IV NOW ONE Stop: 03/22/24 22:43 Last Infusion: 03/22/24 23:42 Dose: Infused Documented By: Admin: 03/22/24 23:06 Dose: 200 mls/hr Documented By: Vital Signs Vital signs: Vital Signs - 8 hr 03/22/24 21:10 03/22/24 21:10 03/22/24 21:30 Temperature 94.1 F L Pulse Rate 70 70 69 Respiratory Rate 18 Blood Pressure 206/88 H Pulse Oximetry 99 99 99 Oxygen Delivery Method Room Air Oxygen Flow Rate 03/22/24 22:00 03/22/24 22:30 03/22/24 22:40 Temperature Pulse Rate 77 65 67 Respiratory Rate 25 H 20 18 Blood Pressure 172/79 H Pulse Oximetry 98 95 98 Oxygen Delivery Method Room Air Oxygen Flow Rate 03/22/24 23:30 Temperature 97.5 F L Pulse Rate 69 Respiratory Rate 18 Blood Pressure 166/67 H Pulse Oximetry 98 Oxygen Delivery Method Oxygen Flow Rate 0 MDM - Weakness Lab Data Attestation: I reviewed the patient's lab results. 03/22/24 21:18 03/22/24 21:18 Labs: Lab Results 03/22/24 03/22/24 Range/Units 21:18 22:16 WBC 14.6 H (4.5-11.0) X10^3/uL RBC 4.24 (4.0-5.2) X10^6/uL Hgb 13.4 (12.0-16.0) g/dL Hct 37.6 (36-46) % MCV 88.5 (80-100) fL MCH 31.5 (26-34) PG MCHC 35.6 (30-36) % RDW 13.0 (11.6-14.8) % Plt Count 224 (150-400) X10^3/uL Neut % (Auto) 81.2 H (50-75) % Lymph % (Auto) 11.3 L (25-40) % [place] % (Auto) 6.3 (3-14) % Eos % (Auto) 0.8 L (2-4) % Baso % (Auto) 0.4 (0-2) % Neut # (Auto) 50007 H (7302-7137) /uL Lymph # (Auto) 1600 (2999-6347) /uL [place] # (Auto) 900 (0-900) /uL Eos # (Auto) 100 (0-450) /uL Baso # (Auto) 100 (0-100) /uL Sodium 113 L* (137-145) mmol/L Potassium 2.5 L* (3.4-5.1) mmol/L Chloride 80 L (98-107) mmol/L Carbon Dioxide 18 L (22-32) mmol/L BUN 18 H (7-17) mg/dL Creatinine 0.59 (0.52-1.04) mg/dL Estimated GFR > 60 (>60) mL/min BUN/Creatinine Ratio 30.5 H (6-22) Glucose 134 H (80-110) mg/dL Calcium 9.3 (8.4-10.2) mg/dL Troponin I < 0.012 (0.01-0.034) ng/mL Urine Color Straw Urine Appearance Clear Urine pH 6.5 (4.5-8.0) Ur Specific [place] <=1.005 (1.000-1.035) Urine Protein Negative (Negative) Urine Glucose (UA) Negative (Negative) g/dL Urine Ketones Trace H (NEGATIVE) Urine Occult Blood 1+ H (Negative) Urine Nitrate Negative (Negative) Urine Bilirubin Negative (NEGATIVE) Urine Urobilinogen 0.2 (0.2) E.U./dL Ur Leukocyte Esterase Negative (NEGATIVE) Urine RBC 1-5/hpf (0-5/HPF) Urine WBC None seen (0-5/HPF) Ur Squamous Epith Cells None seen (0-5/HPF) Urine Bacteria Moderate (10-30) H (None) Ur Culture Indicated? Specimen cultured Vol Urine Centrifuged 10ml (spun) Ur Random Sodium 67 (30-90) mmol/L Urine Dip Bedside Urine Glucose Negative Bedside Urine Bilirubin - Negative Bedside Urine Ketone - Negative Urine Specific [place] 1.010 Bedside Urine Occult Blood + Bedside Urine pH 6.0 Bedside Urine Protein - Negative Bedside Urine Urobilinogen - Negative Bedside Urine Nitrite - Negative Bedside Urine Leukocytes - Negative Esterase ECG Data Attestation: I personally reviewed and interpreted this ECG as follows: Interpretation: Normal sinus rhythm with a rate of 70, no obvious ST segment elevation or depression changes however there is significant movement artifact. MA 148, QRS 92, QTC 483. MDM Narrative Medical decision making narrative: 83-year-old female with generalized weakness, history of recent diarrhea, still taking hydrochlorothiazide chronic medication, low temperature on triage noted. Consider sepsis, dehydration, electrolyte disorder, stroke, ACS, other. Screening EKG unremarkable, troponin negative. Sodium 113 loaded no, recently 121 noted. Potassium 2.5 low, recently 3.1, previously normal last month. IV potassium 40 mEq over 4 hours initiated. Urine sodium, urine osmolality, serum osmolality sent. We will contact hospitalist regarding admission Urine analysis suspicious for infection, blood cultures requested, urine culture requested, IV ceftriaxone Case discussed with hospitalist Dr. Luz, accepts patient for admission to inpatient Patient discovered to be patient of Dr. Marciano Vanegas, case discussed with Dr. Vanegas, accepts patient for admission to inpatient Critical Care Time Critical Care Time Critical Care Time: Yes Total Critical Care Time: 35 Attestation: The high probability of a clinically significant, sudden or life threatening deterioration of the [cardiopulmonary, genitourinary, abdominopelvic] system(s) required my full and direct attention, intervention and personal management. The aggregate critical care time was [35] minutes. This time is in addition to time spent performing reported procedures but includes the following: [x] Data Review and interpretation [x] Patient assessment and monitoring of vital signs [x] Documentation [x] Medication orders and management Discharge Plan Departure Patient Disposition: Admitted As Inpatient Clinical Impression: Weakness, Acute hyponatremia, Acute hypokalemia, Urinary tract infection Admit Date/Time: 03/22/24 23:31 Admit Provider: Marciano Vanegas
[2024-03-22 22:36] LABS: Bacteria Urine Moderate (10-30); Culture Indicated Urine Specimen Cultured; RBC Urine 1-5/HPF (0-5/HPF); Squamous Epithelial Cell Urine None Seen (0-5/HPF); Urine Volume 10mL (spun); WBC Urine None Seen (0-5/HPF)
[2024-03-22] MEDS: cefTRIAXone 1,000 MG in SODIUM CHLORIDE 0.9% 100 ML 200 MG IV (23:06)
[2024-03-22] MEDS: ONDANSETRON 4 MG/2 ML INJ IV (23:26)
--- NOTE | 2024-03-22 23:27 | PC.NURSE ---
Pt reports feeling nauseated. Medicated with PRN of nausea.
[2024-03-22 23:28] LABS: Sodium Urine Random 67 mmol/L (30-90)
[2024-03-23] VITALS (8 sets, daily range): BP systolic 111–166; BP diastolic 48–76; PULSE 53–82; RESP 16–17; TEMP 35.7–36.1; O2SAT 95–99
[2024-03-23] MEDS: SODIUM CHLORIDE 0.9% 1,000 ML 150 ML IV (00:43)
[2024-03-23] MEDS: POTASSIUM CHLORIDE IN WATER 10 MEQ/100 ML PIGGYBACK 100 MEQ IV ×8 (00:49→13:36)
[2024-03-23] MEDS: GABAPENTIN 600 MG TABLET PO ×2 (02:30→20:08)
[2024-03-23] MEDS: cloNIDine 0.1 MG TABLET 0.2 MG PO ×3 (02:31→20:13)
[2024-03-23] MEDS: HYDROCODONE/ACET 5/325 TABLET 1 TAB PO (02:31)
[2024-03-23 07:08] LABS: Alanine Aminotransferase 39 IU/L (<35); Albumin 4.1 g/dL (3.5-5.0); Albumin Globulin Ratio 2.2 (1.0-2.8); Alkaline Phosphatase 58 U/L (38-126); Aspartate Aminotransferase 70 IU/L (14-36); BUN Creatinine Ratio 23.4 (6-22); Bilirubin Total 0.6 mg/dL (0.2-1.3); Blood Urea Nitrogen 11 mg/dL (7-17); Calcium 8.4 mg/dL (8.4-10.2); Carbon Dioxide 19 mmol/L (22-32); Chloride 83 mmol/L (98-107); Estimated Glomerular Filt Rate > 60 mL/min (>60); Globulin 1.9 g/dL (1.7-4.1); Glucose 127 mg/dL (80-110); HEMOLYSIS < 15 (0-50); Potassium 2.8 mmol/L (3.4-5.1)
[2024-03-23 07:16] LABS: Sodium 115 mmol/L (137-145)
[2024-03-23 07:47] LABS: Magnesium 1.6 mg/dL (1.6-2.3)
[2024-03-23] MEDS: MAGNESIUM CHLORIDE 64 MG TABLET 128 MG PO (08:33)
[2024-03-23] MEDS: TRAMADOL 50 MG TABLET PO (10:21)
[2024-03-23] MEDS: SODIUM CHLORIDE 0.9% 1,000 ML 100 ML IV ×2 (10:21→20:10)
--- NOTE | 2024-03-23 11:15 | PM.HP.1 ---
History of Present Illness History of Present Illness Date Patient Seen: 03/23/24 Time Patient Seen: 11:15 Date of Onset of Symptoms: 03/20/24 Chief complaint: weak & dizzy Narrative: Patient is an 83-year-old female well known to me who presents with weakness and just feeling dizzy. Patient has no specific weakness that is generalized. She has no other significant change complaint. Apparently 2 days ago she started having watery diarrhea with something that the hospital gave her last time she was here. She felt like it was pretty significant pretty constant. She was having no blood. No nausea or vomiting. No significant abdominal pain. Seem to be getting better and then she started having this dizziness and weakness really this has been going on in some version of for a month or 2. Blood pressure has been rapid and up and down. She has had significant elevations intermittently and then normal. She has not responded to her medications definitively she was started on hydrochlorothiazide which seemed to make a difference especially at 50 mg had some mild electrolyte abnormalities which was being followed. With no other change. She has had no headaches no visual symptoms no chest pain. No shortness of breath. Just feeling tired and weak. Feels it is maybe slightly better this morning. But no other change. Biggest complaint this morning was her feet which she did not get her Ultram consistently until last night. No other changes. Did get 1 dose of hydrocodone which she has had a rash to in the past no rash at this time. [facility] Medical History Sensory peripheral neuropathy Scoliosis Right knee DJD Cervical radiculopathy Degenerative joint disease, right, foot Surgical History Status post surgery (06/22/14) History of tonsillectomy History of third molar tooth extraction Family History Unknown No pertinent family history Father Hypertension Heart disease Mother Heart disease Social History household members: significant other Smoking Status: Former smoker alcohol intake: current substance use type: does not use Meds Home Medications and Allergies Home Medications Medication Instructions Recorded Confirmed Type losartan 100 mg tablet 100 mg PO DAILY 02/05/19 03/23/24 History vitamin C with Zinc 1 mg PO DAILY 01/14/20 02/20/24 History amlodipine 10 mg tablet 10 mg PO DAILY 11/29/22 03/23/24 History gabapentin 600 mg tablet 600 mg PO BEDTIME #90 tabs 11/29/22 03/23/24 Rx omeprazole 40 mg capsule,delayed 40 mg PO DAILY 11/29/22 03/23/24 History release trazodone 100 mg tablet 100 mg PO BEDTIME 11/29/22 03/23/24 History sertraline 50 mg tablet 50 mg PO DAILY 04/02/23 03/23/24 History atorvastatin 10 mg tablet 10 mg PO DAILY 09/17/23 03/23/24 History buspirone 15 mg tablet 15 mg PO BID 02/20/24 03/23/24 History celecoxib 200 mg capsule (Celebrex) 200 mg PO DAILY #30 caps 02/20/24 03/23/24 Rx hydrochlorothiazide 25 mg tablet 25 mg PO DAILY 02/20/24 03/23/24 History tramadol 50 mg tablet 50 mg PO BID PRN pain #42 tabs 02/20/24 03/23/24 Rx Allergies Allergy/AdvReac Type Severity Reaction Status Date / Time hydrocodone Allergy Hives Verified 03/20/24 12:52 pregabalin [From Lyrica] Allergy Verified 03/20/24 12:52 oxycodone [From Percocet] AdvReac Hives Verified 03/20/24 12:52 Review of Systems Review of Systems Narrative: Review of systems negative except as above Exam Vital Signs (past 8 hours): - 03/23/24 03:30 03/23/24 08:00 03/23/24 08:33 Temperature 97.0 F L 96.4 F L Pulse Rate 82 61 61 Respiratory Rate 17 17 Blood Pressure 162/76 H 131/55 L 131/55 L Pulse Oximetry 95 99 Oxygen Delivery Method Room Air Oxygen Flow Rate 0 Narrative Exam Narrative: Fatigued-appearing female in no acute distress Mucous membranes moist neck supple without adenopathy lungs are clear heart is regular rate and rhythm without murmurs clicks rubs or gallops abdomen is soft positive bowel sounds nontender extremities without cyanosis clubbing edema neurologic exam nonfocal moving all extremities sensations intact. Objective Labs 03/22/24 21:18 03/23/24 06:36 Labs: Laboratory Results - last 24 hr 03/22/24 03/22/24 03/23/24 21:18 22:16 06:36 WBC 14.6 H RBC 4.24 Hgb 13.4 Hct 37.6 MCV 88.5 MCH 31.5 MCHC 35.6 RDW 13.0 Plt Count 224 Neut % (Auto) 81.2 H Lymph % (Auto) 11.3 L [place] % (Auto) 6.3 Eos % (Auto) 0.8 L Baso % (Auto) 0.4 Neut # (Auto) 34231 H Lymph # (Auto) 1600 [place] # (Auto) 900 Eos # (Auto) 100 Baso # (Auto) 100 Sodium 113 L* 115 L* Potassium 2.5 L* 2.8 L Chloride 80 L 83 L Carbon Dioxide 18 L 19 L BUN 18 H 11 Creatinine 0.59 0.47 L Estimated GFR > 60 > 60 BUN/Creatinine Ratio 30.5 H 23.4 H Glucose 134 H 127 H Calcium 9.3 8.4 Magnesium 1.6 Total Bilirubin 0.6 AST 70 H ALT 39 H Alkaline Phosphatase 58 Troponin I < 0.012 Total Protein 6.0 L Albumin 4.1 Globulin 1.9 Albumin/Globulin Ratio 2.2 Urine Color Straw Urine Appearance Clear Urine pH 6.5 Ur Specific [place] <=1.005 Urine Protein Negative Urine Glucose (UA) Negative Urine Ketones Trace H Urine Occult Blood 1+ H Urine Nitrate Negative Urine Bilirubin Negative Urine Urobilinogen 0.2 Ur Leukocyte Esterase Negative Urine RBC 1-5/hpf Urine WBC None seen Ur Squamous Epith Cells None seen Urine Bacteria Moderate (10-30) H Ur Culture Indicated? Specimen cultured Vol Urine Centrifuged 10ml (spun) Ur Random Sodium 67 Assessment & Plan Assessment & Plan narrative: Hypokalemia. Pretty significantly low on presentation. Question whether this is secondary to diarrhea or her hydrochlorothiazide either way we are going to be replacing it. Today she will get 6 K riders yesterday she had 4 and she has IV in her IV. Will recheck in a.m.. See how things are going. I suspect hopefully by tomorrow she will be resolved with this tomorrow. Will continue telemetry. High risk for issues but hopefully be resolving quickly. And we can follow. Hyponatremia. Combination of her diarrhea and probably more likely her hydrochlorothiazide. Significantly lowered at this point. In dangerous level has been a significant change for her. Will add salt pills today. Placed on tele. Not having any other symptoms other than fatigue and weakness which I suspect is secondary to this. Will continue saline low-dose she has no history of congestive heart failure. But will watch closely. My guess is it will take several days to slowly replace this we do not want to replace it too fast because of high risk of other issues. Hypertension. Has been traditionally well-controlled until the last several months. When it is become quite variable. Certainly he will have to discontinue her hydrochlorothiazide. Will continue her other medication and add clonidine. Hopefully that will be more stable. Will check cortisol and due to the rapid changes will check for pheochromocytoma though I doubt this is present. Patient understands. We will see how things go. Peripheral neuropathy. Continue tramadol and her Neurontin and will follow. Code status full. DVT prophylaxis place on Lovenox Disposition. I anticipate her being at least 3 or 4 days in the hospital with slow resolution of her hyponatremia but will see how things go. Serious illness. Time-Based Coding :: [TOTAL MINUTES] spent with patient and on the chart (including review of chart, obtaining history, exam, reviewing outside data, placing orders, documenting exam and treatment plan, and counseling patient) on [DATE]. Quality VTE Deep Vein Thrombosis/Pulmonary Embolism Present on Admission: No
[2024-03-23 12:26] LABS: Appearance Urine UA CLEAR; Bilirubin Urine UA NEGATIVE (NEGATIVE); Color Urine UA YELLOW; Glucose Urine UA NEGATIVE (Negative); Ketones Urine UA NEGATIVE (NEGATIVE); Leukocyte Esterase Urine UA NEGATIVE (NEGATIVE); Nitrite Urine UA NEGATIVE (Negative); Occult Blood Urine UA TRACE-INTACT (Negative); Protein Urine UA NEGATIVE (Negative); Specific Gravity Urine UA <=1.005 (1.000-1.035); Urobilinogen Urine UA 0.2 E.U./dL (0.2)
[2024-03-23] MEDS: SODIUM CHLORIDE 1,000 MG TABLET 1000 MG PO (12:40)
[2024-03-23 12:51] LABS: Bacteria Urine None Seen; Culture Indicated Urine Cult Not Indicated; RBC Urine None Seen (0-5/HPF); Squamous Epithelial Cell Urine None Seen (0-5/HPF); Urine Volume 10mL (spun); WBC Urine None Seen (0-5/HPF)
--- NOTE | 2024-03-23 13:00 | CM.DANOTE ---
Initial DCP Assessment Note Pt is a 83 yo female, resident of [place], arrives with weakness and dizziness; admitted INPT for further work up and management of hypokalemia, hyponatremia and hypertension. PCP: Marciano Vanegas Payer: [employer] Reviewed chart, met w/patient and her son at bedside, introduced self and role. Son does not participate in this conversation. Patient reports that she lives independently in a home here in [place], daughter Michelle lives in [place] as well, son lives in [place]. Patient denies hx of HH or SNF. Patient expects to return home w/assist from her family as needed. No barriers identified at this time to patient's safe discharge home w/family to assist; close outpatient f/u recommended. CM team will plan to follow clinical course closely in case any DC needs or concerns arise. RICHARD Simpson Discharge Planning/Care Management CM Discharge Assessment Start: 03/23/24 12:55 Freq: Status: Active Protocol: Document 03/23/24 12:56 MIGEL (Rec: 03/23/24 13:00 MIGEL [id number]) Discharge Planning Assessment Assigned Melter Caster RICHARD Lambert DPOA/Assigned Designee Name sarah Walter Contact Information [phone] or [phone] Advance Directives? Yes Advance Directives on File No History Provided By Patient,Family Member Household Members none Type of transporation used prior to Drives own vehicle admit Comment Friend or family to assist with driving if patient does not feel up to it. Independent with ADL's Yes Is patient alert and oriented? Yes Barriers to Discharge No Discharge Plan Home Transportation Arrangement Family Referrals Initiated None needed
[2024-03-23 16:17] LABS: HEMOLYSIS < 15 (0-50); Potassium 3.4 mmol/L (3.4-5.1)
[2024-03-23] MEDS: ACETAMINOPHEN 325 MG TABLET 650 MG PO (16:59)
[2024-03-23] MEDS: ATORVASTATIN 20 MG TABLET 10 MG PO (20:08)
[2024-03-23] MEDS: BUSPIRONE 5 MG TABLET 15 MG PO (20:08)
[2024-03-23] MEDS: TRAZODONE 50 MG TABLET 100 MG PO (20:08)
[2024-03-24 05:03] VITALS: BP 106/46; PULSE 56; RESP 16; TEMP 35.9; O2SAT 98
[2024-03-24] MEDS: PANTOPRAZOLE DR 40 MG TABLET PO (05:21)
[2024-03-24] MEDS: SODIUM CHLORIDE 0.9% 1,000 ML 100 ML IV (05:21)
[2024-03-24 07:02] LABS: Magnesium 2.1 mg/dL (1.6-2.3)
[2024-03-24 07:23] LABS: BUN Creatinine Ratio 19.7 (6-22); Blood Urea Nitrogen 13 mg/dL (7-17); Calcium 8.3 mg/dL (8.4-10.2); Carbon Dioxide 19 mmol/L (22-32); Chloride 105 mmol/L (98-107); Estimated Glomerular Filt Rate > 60 mL/min (>60); Glucose 103 mg/dL (80-110); HEMOLYSIS < 15 (0-50); Potassium 3.3 mmol/L (3.4-5.1); Sodium 132 mmol/L (137-145)
[2024-03-24 07:36] LABS: Cortisol AM (Before 10AM) 18.6 ug/dL (4.46-22.7)
[2024-03-24 08:00] VITALS: BP 108/42; PULSE 60; RESP 16; TEMP 36.5; O2SAT 97
--- NOTE | 2024-03-24 08:34 | P.PN_ITS ---
Subjective Subjective Date Patient Seen: 03/24/24 Time Patient Seen: 08:35 Interval history: Patient seen in follow-up of multiple issues including hypokalemia hyponatremia hypertension weakness. Overall feeling better today. Still lightheaded. Otherwise no change. No nausea no vomiting tolerating food well. Slept okay last night. Back pain seems to be doing well. Exam Vital Signs (past 8 hours): - 03/24/24 05:03 03/24/24 08:00 Temperature 96.6 F L 97.7 F Pulse Rate 56 L 60 Respiratory Rate 16 16 Blood Pressure 106/46 L 108/42 L Pulse Oximetry 98 97 Oxygen Flow Rate 0 0 Oxygen Delivery Method Room Air Oxygen Flow Rate 0 Narrative Exam Narrative: Alert elderly female lying in bed in no acute distress Lungs are clear heart is regular rate and rhythm abdomen is benign extremities nonfocal exam nontender normal neurologic exam Objective Labs 03/22/24 21:18 03/24/24 06:17 Labs: Laboratory Results - last 24 hr 03/23/24 03/23/24 03/24/24 11:35 16:02 06:17 Sodium 132 L D Potassium 3.4 3.3 L Chloride 105 Carbon Dioxide 19 L BUN 13 Creatinine 0.66 Estimated GFR > 60 BUN/Creatinine Ratio 19.7 Glucose 103 Calcium 8.3 L Magnesium 2.1 Cortisol AM Sample 18.6 Urine Color Yellow Urine Appearance Clear Urine pH 7.0 Ur Specific [place] <=1.005 Urine Protein Negative Urine Glucose (UA) Negative Urine Ketones Negative Urine Occult Blood Trace-intact Urine Nitrate Negative Urine Bilirubin Negative Urine Urobilinogen 0.2 Ur Leukocyte Esterase Negative Urine RBC None seen Urine WBC None seen Ur Squamous Epith Cells None seen Urine Bacteria None seen Ur Culture Indicated? Cult not indicated Vol Urine Centrifuged 10ml (spun) [facility] Medical History Sensory peripheral neuropathy Scoliosis Right knee DJD Cervical radiculopathy Degenerative joint disease, right, foot Surgical History Status post surgery (06/22/14) History of tonsillectomy History of third molar tooth extraction Family History Unknown No pertinent family history Father Hypertension Heart disease Mother Heart disease Social History household members: none Smoking Status: Former smoker alcohol intake: current substance use type: does not use Assessment & Plan Assessment & Plan narrative: Hyponatremia. Certainly much improved today. Slightly more quickly than we would have like to recover but that seems to be doing okay she seems to be feeling okay. Will discontinue fluids will discontinue salt pills recheck a.m. if stable can possibly go home. Hypokalemia. Still low. [place] to be secondary to diuretics. He is got pretty aggressive treatment and will go to oral today. Recheck a.m.. Hypertension actually seems to be responding well to clonidine. Will have to see made decrease slightly from there. She understands and will follow-up metanephrines and cortisol. For possible abnormality in endocrine system since she has been so variable. Back pain. Stable. Will continue to follow. Seems to be doing better with her usual dose of Ultram. Has been aggressively followed by pressure vessel inspector. No definitive other treatment. Weakness. Seems to be better. Will have PT evaluate today. DVT prophylaxis on Lovenox Code status full. Disposition. Hopefully home tomorrow if everything goes well. Will just have to see how she does. Under numbers remained stable Time-Based Coding :: [TOTAL MINUTES] spent with patient and on the chart (including review of chart, obtaining history, exam, reviewing outside data, placing orders, documenting exam and treatment plan, and counseling patient) on [DATE]. Quality VTE Deep Vein Thrombosis/Pulmonary Embolism Present on Admission: No
[2024-03-24] MEDS: POTASSIUM CHLORIDE 20 MEQ TAB 40 MEQ PO ×2 (09:18→17:46)
[2024-03-24] MEDS: SERTRALINE 50 MG TABLET PO (09:18)
[2024-03-24] MEDS: ENOXAPARIN 40 MG/0.4 ML SYRINGE SUBCUT (09:19)
[2024-03-24 12:00] VITALS: BP 112/45; PULSE 58; RESP 16; TEMP 36.4; O2SAT 98
--- NOTE | 2024-03-24 12:19 | DIET.CONS2 ---
Dietary Inpatient Consultation Note Admission Date: 03/22/2024 23:31 83 y F admitted for hypokalemia, hypoatremia. Nutrition screened for low MNA. Met with pt at bedside who reports normal appetite/normal intakes. Is working to maintain adequate intake in daily. UBW 59 kg per pt. Current weight 63.503 kg. Encouraged continued adequate intake. No nutritional intervention at this time. F/u 1-3 days, will monitor po intakes. Diet: 03/23/24 Lunch Heart Healthy Diet Diet Modifications: Nutrition Percent Meal Consumed 75% 03/24/24 09:16 Percent Meal Consumed 75% 03/23/24 18:00 Electronically Signed by: Lyn Olvera 03/24/24 12:19 Clinical Dietitian [address] [address]
--- NOTE | 2024-03-24 13:53 | PT.IIE ---
Current Diagnoses Hypokalemia (03/22/24) Surgical History (Last Reviewed 03/23/24 @ 11:18 by Marciano Vaengas MD) History of third molar tooth extraction History of tonsillectomy Status post surgery (06/22/14) Medical History (Last Reviewed 03/20/24 @ 14:35 by Jose F Nguyen DO) Cervical radiculopathy Degenerative joint disease, right, foot Right knee DJD Scoliosis Sensory peripheral neuropathy Physical Therapy Inpatient Evaluation/Re-Eval M1 PT/OT-IP Prior Functional Status Start: 03/24/24 11:13 Freq: NEEDED Status: Active Protocol: Document 03/24/24 13:24 MB (Rec: 03/24/24 13:52 MB [id number]) Medical Review Prior Functional Status Medical History Reviewed Yes Diet/Fluid Consistency Regular Communication WNLs Mobility and Gait I Activities of Daily Living and IADL's I, drove Social History Household Members none Living Arrangements House Number of Floors (Floors) Two Floors Number of Stairs To Enter/Railing? 6 steps right rail to enter Basement 12 steps B rail Home Environment Standard Height Toilet,Walk in Shower Home Equipment Straight Cane,Hand Held Shower ,Grab Bars In Shower Employment Status Retired M2 PT-IP Current Condition Start: 03/24/24 11:13 Freq: NEEDED Status: Active Protocol: Document 03/24/24 13:24 MB (Rec: 03/24/24 13:52 MB [id number]) Physical Therapy Current Condition Current Condition Evaluation Date 03/24/24 Treatment Diagnosis Weakness, dizziness, abnormal chemistry M3 PT-IP Subjective Start: 03/24/24 11:13 Freq: NEEDED Status: Active Protocol: Document 03/24/24 13:24 MB (Rec: 03/24/24 13:52 MB [id number]) Subjective Physical Therapy Visit Type Type Initial Evaluation Visit Start Time 13:24 Visit Stop Time 13:39 Number of SOLAR PROJECT MANAGER Visits 0 Physical Therapy Visit Comments Patient Comments Pt reports she is doing better and that her legs are sore Patient Goals To go home Therapy Pain Assessment Pain When Pain Assessed At Rest Pain Present Pain Present Denied Pain M4 PT-IP Mobility and Gait Start: 03/24/24 11:13 Freq: NEEDED Status: Active Protocol: Document 03/24/24 13:24 MB (Rec: 03/24/24 13:52 MB [id number]) PT-Bed Mobility Assessment Rolling Level of Assist Independent Supine to Sit Supine to Sit Independent Sit to Supine Sit to Supine Independent Scooting Scooting to Edge of Bed Standby Assistance Scooting Up and Down in Bed Standby Assistance PT-Transfer Assessment Sit to and From Stand Sit to and from Stand Contact Guard Assistance,1 Person Assistance,Use of Upper Extremities Equipment Transfer Assistive Device None Orthotic/Prosthetic Devices or Brace: No Transfers Transfer Destination Bed,Chair Transfer Technique Ambulation Transfer Ability Level of Assist Contact Guard Assistance,1 Person Assistance,Use of Upper Extremities Comments Mobility Comments Pt transfers from bed to chair with use of arm of chair for support, support through hands . STS for orthostatic assessment with CGA. BP and HR in RUE: supine 119/42, 60; standing 128/51, 68 and no dizziness. Pt rolls right and left in bed and does not fully turn head and denies dizziness with rolling. Gait Assessment Gait Gait Assistance Required: Minimum Assistance Distance (Feet) 20 Able to Maintain Weight Bearing Status Yes During Gait Assistive Devices Assistive Device None Orthotic/Prosthetic Devices or Brace: No Gait Deviations General Gait Pattern Decreased Stride Length, Decreased Feet Clearance Factors Limiting Gait Function Factors Limiting Gait Function Decreased Strength,Limited Range of Motion,Pain,Poor Balance,Poor Safety Awareness Comments Gait Comments Pt c/o B LE soreness and soreness into groin area. PT provides CHIEF ANALYTICS OFFICER and assist about waist for gait 20'x2 so that PT can keep pt steady and look at gait pattern. Pt with foot drop on the left and distal LE weakness that she states is from old spinal surgery. She states she does not use her AFO because I don't need it anymore and she does not use AD either. Hip hike and knee flexion are pronounced LLE and the left leg is less stable with WB and stepping PT-Balance Assessment Sitting Balance and Reactions Static Sitting Balance Ability Normal Dynamic Sitting Balance Ability Good Standing Balance and Reactions Static Standing Balance Ability Good Dynamic Standing Balance Ability Fair Device Used PT assistance about waist and CHIEF ANALYTICS OFFICER M5 PT-IP Objective Assessments Start: 03/24/24 11:13 Freq: NEEDED Status: Active Protocol: Document 03/24/24 13:24 SONIA (Rec: 03/24/24 13:52 [id number]) Orientation Orientation/Cognition Level of Alertness Confusional State Orientation Name,Age,Birthday,Month,Year, Place Language Function Ability No Deficits Noted Safety Awareness Decreased Safety Awareness Memory Description No Deficits Noted Gross Range of Motion Upper Extremity ROM Assessment Within Functional Limits Lower Extremity ROM Assessment Left Impaired Impairments LLE foot drop Strength Comments Strength Comments Pt cannot tolerate MMT d/t soreness (she denies pain) and this may d/t chemistry changes and so PT does not push Coordination Assessment Assessment Coordination Comments Impaired LLE d/t foot drop/ weakness Muscle Tone Muscle Tone WNL No M6 PT-IP Treatment Start: 03/24/24 11:13 Freq: NEEDED Status: Active Protocol: Document 03/24/24 13:24 MB (Rec: 03/24/24 13:52 MB [id number]) Physical Therapy Treatment Education Education Provided Safety M7 PT-IP Assessment and Plan Start: 03/24/24 11:13 Freq: NEEDED Status: Active Protocol: Document 03/24/24 13:24 MB (Rec: 03/24/24 13:52 MB [id number]) PT Summary Assessment and Plan Potential Rehabilitation Potential Good Status of Condition at Evaluation Evolving Summary Impairments ROM,Strength,Balance, Coordination,Tone,Cognition, Bed Mobility,Transfers,Gait, Activity Tolerance Progress Towards Goals Progressing Toward Goals Assessment Summary Pt is an 83 y/o female who denies pain but reports muscle soreness that is pretty generalized. PT defers MMT. Pt with baseline LLE foot drop and imbalance with mobility. Rolling in bed does not cause dizziness and orthostatics are negative. She will benefit from further balance, gait and stair training in acute setting as she is in acute care. Recommend increased assistance at home at d/c. Goals Transfer Goal Independent,Cane,Front Wheeled Walker,Four Wheeled Walker Gait Goal Independent,Cane,Front Wheel Walker,Four Wheel Walker Gait Distance 100 Other Goals Pt will ascend and descend 6 steps with right rail ascend to allow safe home entry. Days to Meet Goals 5 Frequency of Treatment Frequency Of Treatment Once a Day Treatment Plan Physical Therapy Treatment Plan Transfer Training,Gait Training,Therapeutic Exercise, Balance Retraining,Discharge Planning,Hot or Cold Pack, Neuromuscular Re-ed, Coordination Retraining,Manual Therapy Other Recommendations and Next Treatment AD training, stair training Focus Weight Bearing Status Weight Bearing Status Weight Bear as Tolerated Recommendations To Nursing Amount of Assist Needed 1 Person Assist Discharge Recommendations PT Discharge Recommendations Home with Assistance Transportation Needs at Discharge Private Vehicle
[2024-03-24] MEDS: ACETAMINOPHEN 325 MG TABLET 650 MG PO (14:49)
[2024-03-24 15:10] LABS: Osmolality, Serum 234 mOsmol/kg (280-301)
[2024-03-24 15:10] LABS: Osmolality Urine 303 mOsmol/kg (.)
[2024-03-24 16:00] VITALS: BP 115/43; PULSE 60; RESP 16; TEMP 36.4; O2SAT 97
[2024-03-24] MEDS: MAGNESIUM HYDROXIDE 30 ML UDC PO (18:00)
[2024-03-24] MEDS: TRAMADOL 50 MG TABLET PO (19:20)
[2024-03-24 20:00] VITALS: BP 142/51; PULSE 56; RESP 18; TEMP 36.4; O2SAT 99
[2024-03-24] MEDS: BUSPIRONE 5 MG TABLET 15 MG PO (20:34)
[2024-03-24] MEDS: GABAPENTIN 600 MG TABLET PO (20:35)
[2024-03-24] MEDS: ATORVASTATIN 20 MG TABLET 10 MG PO (20:35)
[2024-03-24] MEDS: TRAZODONE 50 MG TABLET 100 MG PO (20:35)
[2024-03-24 20:38] VITALS: BP 142/51; PULSE 56
[2024-03-24] MEDS: cloNIDine 0.1 MG TABLET 0.2 MG PO (20:38)
[2024-03-25] VITALS: BP 122/45; PULSE 56; RESP 17; TEMP 36.1; O2SAT 98
[2024-03-25 05:00] VITALS: BP 117/41; PULSE 61; RESP 16; TEMP 35.9; O2SAT 95
[2024-03-25 06:58] LABS: Alanine Aminotransferase 33 IU/L (<35); Albumin 3.5 g/dL (3.5-5.0); Albumin Globulin Ratio 1.4 (1.0-2.8); Alkaline Phosphatase 56 U/L (38-126); Aspartate Aminotransferase 34 IU/L (14-36); BUN Creatinine Ratio 23.6 (6-22); Bilirubin Total 0.5 mg/dL (0.2-1.3); Blood Urea Nitrogen 13 mg/dL (7-17); Calcium 8.4 mg/dL (8.4-10.2); Carbon Dioxide 20 mmol/L (22-32); Chloride 107 mmol/L (98-107); Estimated Glomerular Filt Rate > 60 mL/min (>60); Globulin 2.5 g/dL (1.7-4.1); Glucose 108 mg/dL (80-110); HEMOLYSIS < 15 (0-50); Potassium 4.2 mmol/L (3.4-5.1); Sodium 131 mmol/L (137-145)
--- NOTE | 2024-03-25 08:32 | PM.DS.1 ---
History of Present Illness History of Present Illness Date Patient Seen: 03/25/24 Time Patient Seen: 08:32 Date of Onset of Symptoms: 03/20/24 Chief complaint: weak & dizzy Narrative: Patient is an 83-year-old female well known to me who presents with weakness and just feeling dizzy. Patient has no specific weakness that is generalized. She has no other significant change complaint. Apparently 2 days ago she started having watery diarrhea with something that the hospital gave her last time she was here. She felt like it was pretty significant pretty constant. She was having no blood. No nausea or vomiting. No significant abdominal pain. Seem to be getting better and then she started having this dizziness and weakness really this has been going on in some version of for a month or 2. Blood pressure has been rapid and up and down. She has had significant elevations intermittently and then normal. She has not responded to her medications definitively she was started on hydrochlorothiazide which seemed to make a difference especially at 50 mg had some mild electrolyte abnormalities which was being followed. With no other change. She has had no headaches no visual symptoms no chest pain. No shortness of breath. Just feeling tired and weak. Feels it is maybe slightly better this morning. But no other change. Biggest complaint this morning was her feet which she did not get her Ultram consistently until last night. No other changes. Did get 1 dose of hydrocodone which she has had a rash to in the past no rash at this time. Discharge Providers Provider Date of admission: 03/22/24 23:31 Discharge Date: 03/25/24 Primary care physician: Marciano Vanegas MD Consults: 03/24/24 08:39 Consult to Physical Therapy Evaluate & Treat Comment: Physician Instructions: Evaluate and Treat Discharge provider: Marciano Vanegas MD Summary Hospital Course Discharge Diagnosis: Hyponatremia Hypokalemia Hypertension Weakness Hospital Course: Hyponatremia. Patient was felt to be hyponatremic secondary to combination of hydrochlorothiazide and diarrhea that she developed. The diarrhea resolved before presentation in the hospital. Should been on increasing doses of hydrochlorothiazide for blood pressure and presented with hyponatremia issues began on IV saline and gently hydrated. On day 2 she was started on salt tablets and rapidly turned to a significant increase in her sodium to 130 from the teens. She was discontinued on fluids and her salt tablets and remained stable. She will be followed as an outpatient. Hydrochlorothiazide was discontinued. Hypokalemia. [place] to be secondary to combination diarrhea and diuretics. Diuretics were stopped she has no further diarrhea. She was aggressively IV replaced getting 4 K riders on day 1 and 6 K riders on day 2. She was almost completely normalized at that point she would 2 doses of oral potassium and had a normal potassium on day of discharge. She will be followed as an outpatient. She has not taking diuretics anymore not having diarrhea and hopefully she can maintain her own potassium. No other change. Hypertension. Patient has been very labile with her blood pressure. Which is why she has been having increasing doses of hydrochlorothiazide. Cortisol was normal. Metanephrines are pending she was placed on clonidine and actually had a blood pressure in the 117. She has feeling a little dizzy will back off 2.1 b.i.d. and rechecked in 1 week. Hopefully we can maintain more consistent blood pressure at this point. On follow-up metanephrines which I suspect will be normal but certainly with her increasing lability of her blood pressure will need to be followed up. Weakness. [place] to be secondary to her electrolyte abnormality. Feeling better today. PT felt she could go home and we will send home today. Back pain. Chronic. Continue usual meds. 35 minutes spent with the patient nursing orders discharge Exam Vital Signs (past 8 hours): - 03/25/24 05:00 Temperature 96.6 F L Pulse Rate 61 Respiratory Rate 16 Blood Pressure 117/41 L Pulse Oximetry 95 Oxygen Flow Rate 0 Oxygen Delivery Method Room Air Oxygen Flow Rate 0 Narrative Exam Narrative: Alert female in no acute distress mildly fatigued in appearance Lungs are clear heart is regular rate and rhythm Objective Labs 03/22/24 21:18 03/25/24 06:19 Labs: Laboratory Results - last 24 hr 03/22/24 03/23/24 03/25/24 22:16 06:36 06:19 Sodium 131 L Potassium 4.2 Chloride 107 Carbon Dioxide 20 L BUN 13 Creatinine 0.55 Estimated GFR > 60 BUN/Creatinine Ratio 23.6 H Glucose 108 Serum Osmolality 234 L Calcium 8.4 Total Bilirubin 0.5 AST 34 ALT 33 Alkaline Phosphatase 56 Total Protein 6.0 L Albumin 3.5 Globulin 2.5 Albumin/Globulin Ratio 1.4 Urine Osmolality 303 PFSH Medical History Sensory peripheral neuropathy Scoliosis Right knee DJD Cervical radiculopathy Degenerative joint disease, right, foot Surgical History Status post surgery (06/22/14) History of tonsillectomy History of third molar tooth extraction Family History Unknown No pertinent family history Father Hypertension Heart disease Mother Heart disease Social History household members: none Smoking Status: Former smoker alcohol intake: current substance use type: does not use Discharge Assessment & Plan Assessment and Plan Assessment: Improved Plan of Treatment: Discharge home Discharge Plan Discharge Plan Patient Disposition: Home Discharge orders & Medications Prescriptions: New clonidine HCl 0.1 mg Tablet 0.1 mg PO BID Qty: 60 3RF Continued metoprolol succinate 25 mg tablet extended release 24 hr 25 mg PO DAILY sertraline 50 mg tablet 50 mg PO DAILY buspirone 15 mg tablet 15 mg PO BID celecoxib [Celebrex] 200 mg capsule 200 mg PO DAILY Qty: 30 2RF tramadol 50 mg tablet 50 mg PO BID PRN (Reason: pain) Qty: 42 2RF Patient Comments: doesn't take all the time losartan 100 mg tablet 100 mg PO DAILY omeprazole 40 mg capsule,delayed release(DR/EC) 40 mg PO DAILY Patient Comments: TAKE 1 CAPSULE BY MOUTH ONCE DAILY trazodone 100 mg tablet 100 mg PO BEDTIME amlodipine 10 mg tablet 10 mg PO DAILY Patient Comments: TAKE 1 TABLET BY MOUTH EVERY DAY gabapentin 600 mg tablet 600 mg PO BEDTIME Qty: 90 1RF atorvastatin 10 mg tablet 10 mg PO DAILY Discontinued hydrochlorothiazide 25 mg tablet 25 mg PO DAILY Follow up/Referrals: Marciano Vanegas MD [Primary Care Provider] - 03/31/24 (Please call for appointment) Discharge Health Status Multidrug resistant organism: No MDRO Diet/Activity/Treatments Diet: Diet as Tolerated Activity: As tolerated Visit Report/Discharge Packet Stand Alone Forms: Patient Portal/API, Stroke Signs & Symptoms Discharge Data Primary Care Provider: Marciano Vanegas Quality VTE Deep Vein Thrombosis/Pulmonary Embolism Present on Admission: No
--- NOTE | 2024-03-25 08:42 | CM.DPC ---
DCP Cont. Reviewed EMR and team rounds for status updates. Pt has been medically cleared for home d/c, no further DCP needs identified at this time.
--- NOTE | 2024-03-25 08:50 | PT.IPTN ---
Current Diagnoses Hypokalemia (03/22/24) Physical Therapy Treatment Note M2 PT-IP Current Condition Start: 03/24/24 11:13 Freq: NEEDED Status: Active Protocol: Document 03/24/24 13:24 MB (Rec: 03/24/24 13:52 MB [id number]) Physical Therapy Current Condition Current Condition Evaluation Date 03/24/24 Treatment Diagnosis Weakness, dizziness, abnormal chemistry M3 PT-IP Subjective Start: 03/24/24 11:13 Freq: NEEDED Status: Active Protocol: Document 03/25/24 09:44 TS (Rec: 03/25/24 10:00 TS [id number]) Subjective Physical Therapy Visit Type Type Treatment Note Visit Start Time 08:50 Visit Stop Time 09:13 Number of RAG WILLOW OPERATOR Visits 1 Physical Therapy Visit Comments Patient Comments Pt found resting in chair, reports some dizziness sitting in chair, is agreeable to PT. M4 PT-IP Mobility and Gait Start: 03/24/24 11:13 Freq: NEEDED Status: Active Protocol: Document 03/25/24 09:44 TS (Rec: 03/25/24 10:00 TS [id number]) PT-Transfer Assessment Sit to and From Stand Sit to and from Stand Standby Assistance Equipment Transfer Assistive Device None Orthotic/Prosthetic Devices or Brace: No Comments Mobility Comments BP sitting 125/38, pt rpeorts some dizziness. STS with no AD SBA, pt holds onto table for support. BP in standing 125/51 then 131/53 10mins later. She ambulated ~50' in room with no AD SBA/CGA reaching for bars on bed for balance. Stairs x6 with single rail and CGA, pt reports weakness and pain in R foot. She ambulates in room another ~25' SBA with FWW, more steady and improved balance with use of AD. Pt was left in chair, will dispense FWW before d/c. Gait Assessment Gait Gait Assistance Required: Standby Assistance,Contact Guard Assist Distance (Feet) 75 Able to Maintain Weight Bearing Status Yes During Gait Assistive Devices Assistive Device None,Gait Belt,Front Wheeled Walker Orthotic/Prosthetic Devices or Brace: No Gait Deviations General Gait Pattern Decreased Stride Length, Decreased Feet Clearance Factors Limiting Gait Function Factors Limiting Gait Function Decreased Strength,Limited Range of Motion,Pain,Poor Balance,Poor Safety Awareness Comments Gait Comments See mobility comments Stair Climbing Assessment Evaluation Level of Assist On Stairs Contact Guard Assistance Devices Stair Climbing Assistive Devices Right Railing Technique/Endurance Stair Climbing Direction Ascend and Descend Stair Climbing Technique Step to Step Number of Steps Climbed 6 Comments Stair Climbing Comments See mobility comments PT-Balance Assessment Sitting Balance and Reactions Static Sitting Balance Ability Normal Dynamic Sitting Balance Ability Good Standing Balance and Reactions Static Standing Balance Ability Good Dynamic Standing Balance Ability Fair Device Used FWW M5 PT-IP Objective Assessments Start: 03/24/24 11:13 Freq: NEEDED Status: Active Protocol: Document 03/24/24 13:24 MB (Rec: 03/24/24 13:52 MB [id number]) Orientation Orientation/Cognition Level of Alertness Confusional State Orientation Name,Age,Birthday,Month,Year, Place Language Function Ability No Deficits Noted Safety Awareness Decreased Safety Awareness Memory Description No Deficits Noted Gross Range of Motion Upper Extremity ROM Assessment Within Functional Limits Lower Extremity ROM Assessment Left Impaired Impairments LLE foot drop Strength Comments Strength Comments Pt cannot tolerate MMT d/t soreness (she denies pain) and this may d/t chemistry changes and so PT does not push Coordination Assessment Assessment Coordination Comments Impaired LLE d/t foot drop/ weakness Muscle Tone Muscle Tone WNL No M6 PT-IP Treatment Start: 03/24/24 11:13 Freq: NEEDED Status: Active Protocol: Document 03/25/24 09:44 TS (Rec: 03/25/24 10:00 [id number]) Physical Therapy Treatment Education Education Provided Safety M7 PT-IP Assessment and Plan Start: 03/24/24 11:13 Freq: NEEDED Status: Active Protocol: Document 03/25/24 09:44 TS (Rec: 03/25/24 10:00 [id number]) PT Summary Assessment and Plan Potential Rehabilitation Potential Good Summary Impairments ROM,Strength,Balance, Coordination,Tone,Cognition, Bed Mobility,Transfers,Gait, Activity Tolerance Progress Towards Goals Progressing Toward Goals Assessment Summary Archie continues to make progress with her mobility. She progressed her gait to ~50 ' with no AD and ~25' w/ FWW. She is more steady and balanced with AD, pt agreed to use FWW. She progressed to stairs x6 CGA with single rail . She has some weakness and pain in her R foot limiting her strength for stairs. Her BP is soft, see vitals above. PT is recommending home with assist and HHPT. Goals Transfer Goal Independent,Cane,Front Wheeled Walker,Four Wheeled Walker Gait Goal Independent,Cane,Front Wheel Walker,Four Wheel Walker Gait Distance 100 Other Goals Pt will ascend and descend 6 steps with right rail ascend to allow safe home entry. Days to Meet Goals 5 Frequency of Treatment Frequency Of Treatment Once a Day Treatment Plan Physical Therapy Treatment Plan Transfer Training,Gait Training,Therapeutic Exercise, Balance Retraining,Discharge Planning,Hot or Cold Pack, Neuromuscular Re-ed, Coordination Retraining,Manual Therapy Other Recommendations and Next Treatment AD training, stair training Focus Weight Bearing Status Weight Bearing Status Weight Bear as Tolerated Recommendations To Nursing Amount of Assist Needed Standby Assistance Discharge Recommendations PT Discharge Recommendations Home with Assistance,Home Health Transportation Needs at Discharge Private Vehicle
[2024-03-25 09:00] VITALS: BP 125/38; PULSE 63; RESP 17; TEMP 36; O2SAT 97
[2024-03-25] MEDS: POTASSIUM CHLORIDE 20 MEQ TAB 40 MEQ PO (09:04)
[2024-03-25] MEDS: SERTRALINE 50 MG TABLET PO (09:05)
[2024-03-25 10:00] VITALS: BP 110/35; PULSE 63
[2024-03-25] MEDS: ACETAMINOPHEN 325 MG TABLET 650 MG PO (10:10)
[2024-03-25 12:17] VITALS: BP 115/47; PULSE 58; RESP 15; TEMP 36.1; O2SAT 99
--- NOTE | 2024-03-25 13:48 | PC.NURSE ---
Patient is A&OX4, slightly hypotensive this a.m. and slightly dizzy. A.m. BP medications held. She is able to participate with PT, and she is cleared for discharge home today with FWW. She ambulates with holding on to furniture but much improved with FWW. BP slightly improved at noon 114/50. MD Vanegas notified for paramaters at home to take BP medications. Educated patient to check her BP prior to taking BP meds and to hold off on taking them if SBP is <110. She verbalizes agreement to discharge plan, medications, FWW, as well as follow up appointment next Sunday with MD Vanegas. She is escorted via w/ch to private vehicle with daughter at ED entrance with FWW and all of her personal belongings at approximately 1340 this afternoon.
== END 2024-03-25 13:40 | disposition home or self-care (01) | DRG 641 ==
LOC: ED 23:24 → AC 23:32
PROVIDERS: Admitting Provider Family Medicine; Emergency Provider Emergency Medicine; PCP Family Medicine; Referring Provider Emergency Medicine; Visit Provider Family Medicine
DX: E87.1 Hypo-osmolality and hyponatremia (principal); N39.0 Urinary tract infection, site not specified; E87.6 Hypokalemia; I10 Essential (primary) hypertension; R42 Dizziness and giddiness; R51.9 Headache, unspecified; R06.02 Shortness of breath; R07.9 Chest pain, unspecified; G62.9 Polyneuropathy, unspecified; M54.9 Dorsalgia, unspecified; T50.2X5A Adverse effect of carbonic-anhydrase inhibitors, benzothiadiazides and other diuretics, initial encounter; R19.7 Diarrhea, unspecified; Z87.891 Personal history of nicotine dependence
CPT/HCPCS: 36415; 51798; 70450; 71045; 80048; 80053; 81001; 81003; 81015; 82533; 82550; 83690; 83735; 83835; 83930; 83935; 84132; 84300; 84484; 85025; 87040; 87077; 87086; 87186; 93005; 93010; 96365; 96366; 96368; 96375; 97116; 97161; 97530; 99284; 99291; J0696; J1650; J2405

== ENCOUNTER 2024-07-07 02:00 | Emergency (ER) | payer MEDICARE, SELFPAY ==
[2024-03-22 23:59] VITALS: BMI 25.6
[2024-07-07] VITALS (13 sets, daily range): BP systolic 164–191; BP diastolic 78–91; PULSE 65–85; RESP 15–42; TEMP 36.3; O2SAT 95–100; BMI 23.7
--- NOTE | 2024-07-07 02:16 | DI.RAD.S_ITS ---
PROCEDURE: XR CHEST 1V INDICATIONS: chest pain TECHNIQUE: One view of the chest was acquired. COMPARISON: [facility], CR, XR CHEST 1V, 02/05/2024, 18:45. [facility], CR, XR CHEST 1V, 03/20/2024, 14:43. FINDINGS: Surgical changes and devices: None. Lungs and pleura: Lungs are clear. No pleural effusions or pneumothorax. Mediastinum: Mediastinal contours appear normal. Heart size is normal. Bones and chest wall: No suspicious bony lesions. Overlying soft tissues appear unremarkable. IMPRESSION: No acute cardiopulmonary abnormality is seen. This report is concordant with the overnight preliminary interpretation. Dictated by: Erick Mann M.D. on 07/07/2024 at 7:58 Approved by: Erick Mann M.D. on 07/07/2024 at 7:59
--- NOTE | 2024-07-07 02:16 | EKG_ITS ---
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
--- NOTE | 2024-07-07 02:29 | PC.NURSE ---
Pt reports vague symptoms, relates them to her blood pressure. Pt using WC to get to room. Able to transfer self to [facility].
--- NOTE | 2024-07-07 02:33 | EKG_ITS ---
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
[2024-07-07 02:38] LABS: Add Manual Diff / Slide Review NO; Basophils Absolute Auto 100 /uL (0-100); Basophils Percent Auto 0.6 % (0-2); Eosinophils Absolute Auto 200 /uL (0-450); Eosinophils Percent Auto 2.4 % (2-4); Hematocrit 42.7 % (36-46); Hemoglobin 14.4 g/dL (12.0-16.0); Lymphocytes Absolute Auto 2000 /uL (1100-4500); Lymphocytes Percent Auto 19.8 % (25-40); Mean Corpuscular HGB Conc 33.7 % (30-36); Mean Corpuscular Hemoglobin 30.6 PG (26-34); Mean Corpuscular Volume 90.9 fL (80-100); Monocytes Absolute Auto 500 /uL (0-900); Monocytes Percent Auto 4.8 % (3-14); Neutrophils Absolute Auto 7400 /uL (1500-7000); Neutrophils Percent Auto 72.4 % (50-75); Platelet Count 288 X10^3/uL (150-400); Red Cell Distribution Width 13.3 % (11.6-14.8); White Blood Cell Count 10.2 X10^3/uL (4.5-11.0)
--- NOTE | 2024-07-07 02:45 | ED.ANXIETY ---
HPI - Anxiety General Chief Complaint: Anxiety Stated Complaint: shaky, blood pressure elevated Time Seen by Provider: 07/07/24 02:12 Source: patient Mode of arrival: Wheelchair History of Present Illness HPI narrative: 83-year-old female with history of anxiety, hypertension, worried about her blood pressure, feels a little shaky, also has foul-smelling urine worried about infection of her urine. No fevers or chills. She can not recall the name of her antianxiety medication that she takes each morning. She does take amlodipine but she has not sure of the dose. She denies cough, shortness of breath, chest discomfort. She denies abdominal pain, vomiting, diarrhea, black stools, red stools. No hard stools or problems with constipation. Related Data Home Medications Medication Instructions Recorded Confirmed losartan 100 mg tablet 100 mg PO DAILY 02/05/19 06/04/24 amlodipine 10 mg tablet 10 mg PO DAILY 11/29/22 06/04/24 omeprazole 40 mg capsule,delayed 40 mg PO DAILY 11/29/22 06/04/24 release trazodone 100 mg tablet 100 mg PO BEDTIME 11/29/22 06/04/24 sertraline 50 mg tablet 50 mg PO DAILY 04/02/23 06/04/24 atorvastatin 10 mg tablet 10 mg PO DAILY 09/17/23 06/04/24 clonazepam 0.5 mg tablet 0.5 mg PO DAILY 06/04/24 06/04/24 meclizine 12.5 mg tablet 12.5 mg PO 3XD 06/04/24 06/04/24 Previous Rx's Medication Instructions Recorded gabapentin 600 mg tablet 600 mg PO BEDTIME #90 tabs 11/29/22 clonidine HCl 0.1 mg tablet 0.1 mg PO BID #60 tabs 03/25/24 celecoxib 200 mg capsule (Celebrex) 200 mg PO DAILY #30 caps 04/21/24 tramadol 50 mg tablet 50 mg PO BID PRN pain #42 tabs 06/04/24 cefdinir 300 mg capsule 300 mg PO BID 10 days #20 caps 07/07/24 Allergies Allergy/AdvReac Type Severity Reaction Status Date / Time hydrocodone Allergy Hives Verified 06/04/24 09:00 pregabalin [From Lyrica] Allergy Verified 06/04/24 09:00 oxycodone [From Percocet] AdvReac Hives Verified 06/04/24 09:00 Review of Systems Review of Systems Narrative: See HPI Patient History Medical History Sensory peripheral neuropathy Scoliosis Right knee DJD Cervical radiculopathy Degenerative joint disease, right, foot Surgical History Status post surgery (06/22/14) History of tonsillectomy History of third molar tooth extraction Family History Unknown No pertinent family history Father Hypertension Heart disease Mother Heart disease Social History household members: none Smoking Status: Former smoker alcohol intake: current substance use type: does not use Smoking Status: Former smoker alcohol intake frequency: holidays/special occasions only Alcohol type: wine Substance Use Type: does not use Exam Narrative Exam Narrative: GENERAL: Well-developed patient, in mild distress. HEAD: Atraumatic. Normocephalic. EYES: Pupils equal round and reactive. Extraocular motions intact. No scleral icterus. No injection or drainage. ENT: Nose without bleeding, purulent drainage. Throat without erythema, tonsillar hypertrophy or exudate. Airway patent. NECK: Trachea midline. Non tender CARDIOVASCULAR: Regular rate and rhythm without murmurs, gallops, or rubs. RESPIRATORY: Clear to auscultation. Breath sounds equal bilaterally. No wheezes, rales, or rhonchi. GASTROINTESTINAL: Abdomen soft, non-tender, nondistended. EXTREMITIES: No edema or joint tenderness. BACK: Nontender without deformity or crepitance. No flank tenderness. NEURO: AOx3. Motor functions grossly nonfocal SKIN: No rash or erythema of visible areas Initial Vital Signs Initial Vital Signs: Vital Signs Temperature 97.4 F L 07/07/24 02:09 Pulse Rate 69 07/07/24 02:09 Respiratory Rate 18 07/07/24 02:09 Blood Pressure 177/84 H 07/07/24 02:09 Pulse Oximetry 100 07/07/24 02:09 Oxygen Delivery Method Room Air 07/07/24 02:09 Course Orders Ordered: ED Orders 07/07/24 02:16 XR chest 1V Stat EKG-12 Lead Stat 07/07/24 02:30 Complete Blood Count AUTO DIFF Stat Comprehensive Metabolic Panel Stat Ethanol (ETOH) Stat Troponin & CK Cardiac Panel Stat 07/07/24 02:33 EKG-12 Lead Routine 07/07/24 04:25 Troponin I Stat 07/07/24 05:20 Urinalysis and Microscopic Stat Urine Culture Stat Urine Drug Screen, Rapid Stat 07/07/24 05:30 Covid-19 + FLU A/B + RSV - PCR Stat Sodium Chloride (Normal Saline 0.9%) 1,000 mls @ 500 mls/hr IV BOLUS ONE Stop: 07/07/24 07:16 Last Admin: 07/07/24 05:28 Dose: 500 mls/hr Documented By: Discontinued Medications Amlodipine Besylate (Amlodipine 5 Mg Tablet) 2.5 mg PO NOW ONE Stop: 07/07/24 04:03 Last Admin: 07/07/24 04:12 Dose: Not Given Documented By: Amlodipine Besylate (Amlodipine 5 Mg Tablet) 10 mg PO NOW ONE Stop: 07/07/24 04:05 Last Admin: 07/07/24 04:11 Dose: 10 mg Documented By: Cefdinir (Cefdinir 300 Mg Capsule) 300 mg PO NOW ONE Stop: 07/07/24 06:05 Last Admin: 07/07/24 06:15 Dose: 300 mg Documented By: Hydralazine HCl (Hydralazine 20 Mg/Ml Vial) 5 mg IV NOW ONE Stop: 07/07/24 05:47 Last Admin: 07/07/24 06:00 Dose: 5 mg Documented By: Vital Signs Vital signs: Vital Signs - 8 hr 07/07/24 02:09 07/07/24 02:30 07/07/24 03:00 Temperature 97.4 F L Pulse Rate 69 66 65 Respiratory Rate 18 20 22 Blood Pressure 177/84 H 177/84 H 184/85 H Pulse Oximetry 100 99 100 Oxygen Delivery Method Room Air Room Air Room Air 07/07/24 03:00 07/07/24 03:30 07/07/24 03:30 Temperature Pulse Rate 65 67 Respiratory Rate 22 15 Blood Pressure 187/90 H Pulse Oximetry 100 100 Oxygen Delivery Method 07/07/24 04:04 07/07/24 04:15 07/07/24 04:15 Temperature Pulse Rate 85 69 Respiratory Rate 16 25 H Blood Pressure 178/85 H 178/85 H Pulse Oximetry 95 99 Oxygen Delivery Method Room Air 07/07/24 04:30 07/07/24 04:30 07/07/24 05:04 Temperature Pulse Rate 69 76 Respiratory Rate 29 H 42 H Blood Pressure 186/90 H Pulse Oximetry 99 99 Oxygen Delivery Method Room Air Room Air 07/07/24 05:05 07/07/24 05:05 07/07/24 05:30 Temperature Pulse Rate 76 Respiratory Rate 38 H Blood Pressure 189/90 H 191/91 H Pulse Oximetry 99 Oxygen Delivery Method 07/07/24 05:30 07/07/24 06:00 Temperature Pulse Rate 72 66 Respiratory Rate 28 H Blood Pressure 185/78 H Pulse Oximetry 100 Oxygen Delivery Method Room Air MDM - Anxiety Lab Data Attestation: I reviewed the patient's lab results. Lab results narrative: White blood cell count 05139, hemoglobin 14.4, platelets adequate. Basic metabolic panel unremarkable. Glucose 119. Liver functions normal. Troponin negative/unmeasurable. Ethanol level negative. 07/07/24 02:30 07/07/24 02:30 Labs: Lab Results 07/07/24 07/07/24 07/07/24 Range/Units 02:30 04:25 05:20 WBC 10.2 (4.5-11.0) X10^3/uL RBC 4.70 (4.0-5.2) X10^6/uL Hgb 14.4 (12.0-16.0) g/dL Hct 42.7 (36-46) % MCV 90.9 (80-100) fL MCH 30.6 (26-34) PG MCHC 33.7 (30-36) % RDW 13.3 (11.6-14.8) % Plt Count 288 (150-400) X10^3/uL Neut % (Auto) 72.4 (50-75) % Lymph % (Auto) 19.8 L (25-40) % [place] % (Auto) 4.8 (3-14) % Eos % (Auto) 2.4 (2-4) % Baso % (Auto) 0.6 (0-2) % Neut # (Auto) 7400 H (0300-4542) /uL Lymph # (Auto) 2000 (8193-2408) /uL [place] # (Auto) 500 (0-900) /uL Eos # (Auto) 200 (0-450) /uL Baso # (Auto) 100 (0-100) /uL Sodium 140 (137-145) mmol/L Potassium 3.8 (3.4-5.1) mmol/L Chloride 106 (98-107) mmol/L Carbon Dioxide 23 (22-32) mmol/L BUN 12 (7-17) mg/dL Creatinine 0.67 (0.52-1.04) mg/dL Estimated GFR > 60 (>60) mL/min BUN/Creatinine Ratio 17.9 (6-22) Glucose 119 H (80-110) mg/dL Calcium 9.8 (8.4-10.2) mg/dL Total Bilirubin 0.5 (0.2-1.3) mg/dL AST 30 (14-36) IU/L ALT 18 (<35) IU/L Alkaline Phosphatase 87 (38-126) U/L Total Creatine Kinase 80 (30-135) U/L Troponin I < 0.012 < 0.012 (0.01-0.034) ng/mL Total Protein 7.7 (6.3-8.2) g/dL Albumin 4.7 (3.5-5.0) g/dL Globulin 3.0 (1.7-4.1) g/dL Albumin/Globulin Ratio 1.6 (1.0-2.8) Urine Color Yellow Urine Appearance Clear Urine pH 7.5 (4.5-8.0) Ur Specific [place] 1.015 (1.000-1.035) Urine Protein Negative (Negative) Urine Glucose (UA) Negative (Negative) g/dL Urine Ketones Negative (NEGATIVE) Urine Occult Blood Trace-intact (Negative) Urine Nitrate Positive H (Negative) Urine Bilirubin Negative (NEGATIVE) Urine Urobilinogen 0.2 (0.2) E.U./dL Ur Leukocyte Esterase Negative (NEGATIVE) Urine RBC 0-1/hpf (0-5/HPF) Urine WBC 0-1/hpf (0-5/HPF) Ur Squamous Epith Cells 0-1 /hpf (0-5/HPF) Urine Bacteria Moderate (10-30) H (None) Ur Culture Indicated? Specimen cultured Vol Urine Centrifuged 10ml (spun) U Opiates 300ng/mL cut Negative (Negative) Ur Oxycodone Screen Negative (Negative) Urine Methadone Screen Negative (Negative) Ur Barbiturates Screen Negative (Negative) U Tricyclic Antidepress Negative (Negative) Ur Phencyclidine Scrn Negative (Negative) Ur Amphetamines Screen Negative (Negative) U Methamphetamines Scrn Negative (Negative) Ur MDMA Scrn (Ecstasy) Negative (Negative) U Benzodiazepines Scrn Negative (Negative) Urine Cocaine Screen Negative (Negative) U Marijuana (THC) Screen Negative (Negative) Urine Specific [place] Ethyl Alcohol < 10 ( - 10) mg/dL Ur Creatinine SARS-CoV-2 (PCR) (Negative) Influenza A (RT-PCR) (NEGATIVE) Influenza B (RT-PCR) (NEGATIVE) RSV (PCR) (Negative) 07/07/24 07/07/24 Range/Units 05:20 05:30 WBC (4.5-11.0) X10^3/uL RBC (4.0-5.2) X10^6/uL Hgb (12.0-16.0) g/dL Hct (36-46) % MCV (80-100) fL MCH (26-34) PG MCHC (30-36) % RDW (11.6-14.8) % Plt Count (150-400) X10^3/uL Neut % (Auto) (50-75) % Lymph % (Auto) (25-40) % [place] % (Auto) (3-14) % Eos % (Auto) (2-4) % Baso % (Auto) (0-2) % Neut # (Auto) (4263-1573) /uL Lymph # (Auto) (4762-7050) /uL [place] # (Auto) (0-900) /uL Eos # (Auto) (0-450) /uL Baso # (Auto) (0-100) /uL Sodium (137-145) mmol/L Potassium (3.4-5.1) mmol/L Chloride (98-107) mmol/L Carbon Dioxide (22-32) mmol/L BUN (7-17) mg/dL Creatinine (0.52-1.04) mg/dL Estimated GFR (>60) mL/min BUN/Creatinine Ratio (6-22) Glucose (80-110) mg/dL Calcium (8.4-10.2) mg/dL Total Bilirubin (0.2-1.3) mg/dL AST (14-36) IU/L ALT (<35) IU/L Alkaline Phosphatase (38-126) U/L Total Creatine Kinase (30-135) U/L Troponin I (0.01-0.034) ng/mL Total Protein (6.3-8.2) g/dL Albumin (3.5-5.0) g/dL Globulin (1.7-4.1) g/dL Albumin/Globulin Ratio (1.0-2.8) Urine Color Urine Appearance Urine pH TNP (4.5-8.0) Ur Specific [place] (1.000-1.035) Urine Protein (Negative) Urine Glucose (UA) (Negative) g/dL Urine Ketones (NEGATIVE) Urine Occult Blood (Negative) Urine Nitrate (Negative) Urine Bilirubin (NEGATIVE) Urine Urobilinogen (0.2) E.U./dL Ur Leukocyte Esterase (NEGATIVE) Urine RBC (0-5/HPF) Urine WBC (0-5/HPF) Ur Squamous Epith Cells (0-5/HPF) Urine Bacteria (None) Ur Culture Indicated? Vol Urine Centrifuged U Opiates 300ng/mL cut (Negative) Ur Oxycodone Screen (Negative) Urine Methadone Screen (Negative) Ur Barbiturates Screen (Negative) U Tricyclic Antidepress (Negative) Ur Phencyclidine Scrn (Negative) Ur Amphetamines Screen (Negative) U Methamphetamines Scrn (Negative) Ur MDMA Scrn (Ecstasy) (Negative) U Benzodiazepines Scrn (Negative) Urine Cocaine Screen (Negative) U Marijuana (THC) Screen (Negative) Urine Specific [place] TNP Ethyl Alcohol ( - 10) mg/dL Ur Creatinine TNP SARS-CoV-2 (PCR) Negative (Negative) Influenza A (RT-PCR) Flu a negative (NEGATIVE) Influenza B (RT-PCR) Flu b negative (NEGATIVE) RSV (PCR) Negative (Negative) ECG Data Attestation: I personally reviewed and interpreted this ECG as follows: Interpretation: Normal sinus rhythm with rate of 68, no obvious ST segment elevation or depression changes. AL 150, QRS 82, QTC 455. MDM Narrative Medical decision making narrative: Patient with numerous complaints including foul-smelling urine, worried about her blood pressure, feels anxious. Chart listing amlodipine 10 mg dose, we will give oral amlodipine morning dose now. Screening labs sent from triage. Glucose normal. Urinalysis pending at this time. Afebrile, sirs screen negative. EKG without obvious ischemic changes, troponin negative. Chest x-ray single view. Impression: ?No acute cardiopulmonary abnormality is identified. ? See teleradiology report Interval troponin negative. Still awaiting adequate urine specimen volume for lab analysis. Urinalysis sent, results pending Eventual urinalysis was obtained, bacteria present, inflammatory markers present, urine culture requested. First dose oral cefdinir given, prescription sent for further course to her pharmacy. Amlodipine dose given for elevated blood pressure, her usual 10 mg dose. Encouraged to take her morning medications once at home. Continue chronic medications as planned. Consider recheck in clinic in the next couple of days to recheck her blood pressure, and also her urinary symptoms, and also the results for urine culture. Return precautions discussed for return prior Discharge Plan Departure Patient Disposition: Home Clinical Impression: Urinary tract infection, Hypertension Instructions: DI for Urinary Tract Infection (UTI) Activity Restrictions/Additional Instructions: Shakiness and foul-smelling urine. Urinalysis was eventually obtained, suspicious for infection. First dose antibiotic cefdinir given, prescription for further course antibiotics sent to your pharmacy. Take antibiotics as directed. Drink plenty of fluids. Until the urinalysis was collected, we are doing further workup, including checking your electrolytes which seemed okay, checking your glucose levels, which seemed okay. We even did EKG and serial blood tests to look for evidence of heart attack, which was not confirmed. Urinary tract infection is likely the cause of your symptoms. Elevated blood pressure noted, you are due for amlodipine medication, oral dose was given. Take your blood pressure medications as directed. Follow up with your regular doctor advised in a couple of days to review your blood pressure, and urinary symptom friends, and perhaps check on the results of your urine culture to make sure that the antibiotic does not need to be changed. Return earlier to this/nearest emergency department for any change worsening symptoms or any concerns prior Prescriptions: New cefdinir 300 mg capsule 300 mg PO BID 10 Days Qty: 20 0RF No Action celecoxib [Celebrex] 200 mg capsule 200 mg PO DAILY Qty: 30 2RF clonidine HCl 0.1 mg Tablet 0.1 mg PO BID Qty: 60 3RF sertraline 50 mg tablet 50 mg PO DAILY losartan 100 mg tablet 100 mg PO DAILY omeprazole 40 mg capsule,delayed release(DR/EC) 40 mg PO DAILY Patient Comments: TAKE 1 CAPSULE BY MOUTH ONCE DAILY trazodone 100 mg tablet 100 mg PO BEDTIME amlodipine 10 mg tablet 10 mg PO DAILY Patient Comments: TAKE 1 TABLET BY MOUTH EVERY DAY gabapentin 600 mg tablet 600 mg PO BEDTIME Qty: 90 1RF Hold Instructions: Home Medication placed on hold at Doctor's office atorvastatin 10 mg tablet 10 mg PO DAILY clonazepam 0.5 mg tablet 0.5 mg PO DAILY meclizine 12.5 mg tablet 12.5 mg PO 3XD tramadol 50 mg tablet 50 mg PO BID PRN (Reason: pain) Qty: 42 3RF Patient Comments: doesn't take all the time Referrals: Marciano Vanegas MD [Primary Care Provider] - Stand Alone Forms: Patient Portal/API/Survey
[2024-07-07 02:51] LABS: Alanine Aminotransferase 18 IU/L (<35); Albumin 4.7 g/dL (3.5-5.0); Albumin Globulin Ratio 1.6 (1.0-2.8); Alkaline Phosphatase 87 U/L (38-126); Aspartate Aminotransferase 30 IU/L (14-36); BUN Creatinine Ratio 17.9 (6-22); Bilirubin Total 0.5 mg/dL (0.2-1.3); Blood Urea Nitrogen 12 mg/dL (7-17); Calcium 9.8 mg/dL (8.4-10.2); Carbon Dioxide 23 mmol/L (22-32); Chloride 106 mmol/L (98-107); Creatine Kinase 80 U/L (30-135); Estimated Glomerular Filt Rate > 60 mL/min (>60); Ethanol (ETOH) < 10 mg/dL; Glucose 119 mg/dL (80-110); HEMOLYSIS < 15 (0-50); Potassium 3.8 mmol/L (3.4-5.1); Sodium 140 mmol/L (137-145); Total Protein 7.7 g/dL (6.3-8.2)
[2024-07-07 03:03] LABS: Troponin I < 0.012 ng/mL (0.01-0.034)
[2024-07-07] MEDS: AMLODIPINE 5 MG TABLET 10 MG PO (04:11)
--- NOTE | 2024-07-07 05:08 | PC.NURSE ---
Attempted to get pt up to [facility] to obtain UA. Pt started shaking and feeling dizzy. Returned pt to bed. VSS. CHÁVEZ notified.
[2024-07-07 05:21] LABS: Troponin I < 0.012 ng/mL (0.01-0.034)
[2024-07-07] MEDS: SODIUM CHLORIDE 0.9% 1,000 ML 500 ML IV (05:28)
[2024-07-07 05:38] LABS: Appearance Urine UA CLEAR; Bilirubin Urine UA NEGATIVE (NEGATIVE); Color Urine UA YELLOW; Glucose Urine UA NEGATIVE (Negative); Ketones Urine UA NEGATIVE (NEGATIVE); Leukocyte Esterase Urine UA NEGATIVE (NEGATIVE); Nitrite Urine UA POSITIVE (Negative); Occult Blood Urine UA TRACE-INTACT (Negative); Protein Urine UA NEGATIVE (Negative); Specific Gravity Urine UA 1.015 (1.000-1.035); Urobilinogen Urine UA 0.2 E.U./dL (0.2)
[2024-07-07 05:48] LABS: pH Urine UA 7.5 (4.5-8.0)
[2024-07-07 05:49] LABS: Bacteria Urine Moderate (10-30); Culture Indicated Urine Specimen Cultured; RBC Urine 0-1/HPF (0-5/HPF); Squamous Epithelial Cell Urine 0-1 /HPF (0-5/HPF); UR Morphine/Opiate cutoff 300 Negative (Negative); Urine Amphetamines Negative (Negative); Urine Barbiturates Negative (Negative); Urine Benzodiazepines Negative (Negative); Urine Cocaine Negative (Negative); Urine MDMA Negative (Negative); Urine Methadone Negative (Negative); Urine Methamphetamines Negative (Negative); Urine Oxycodone Negative (Negative); Urine Phencyclidine Negative (Negative); Urine Tetrahydrocannabinol Negative (Negative); Urine Tricyclic Antidepressant Negative (Negative); Urine Volume 10mL (spun); WBC Urine 0-1/HPF (0-5/HPF)
[2024-07-07] MEDS: HYDRALAZINE 20 MG/ML VIAL 5 MG IV (06:00)
[2024-07-07] MEDS: CEFDINIR 300 MG CAPSULE PO (06:15)
[2024-07-07 06:17] LABS: Influenza A - CEPHEID Flu A NEGATIVE (NEGATIVE); Influenza B - CEPHEID Flu B NEGATIVE (NEGATIVE); Respiratory Syncytial Virus Negative (Negative)
[2024-07-07 06:21] LABS: COVID-19 CEPHEID 4-PLEX PCR Negative (Negative)
== END 2024-07-07 06:43 | disposition home or self-care (01) ==
PROVIDERS: Emergency Provider Emergency Medicine; PCP Family Medicine
DX: N39.0 Urinary tract infection, site not specified (principal); I10 Essential (primary) hypertension; R07.9 Chest pain, unspecified; Z11.52 Encounter for screening for COVID-19
CPT/HCPCS: 0241U; 36415; 71045; 80053; 80305; 80320; 81001; 82550; 84484; 85025; 87077; 87086; 87186; 93005; 96361; 96374; 99284; J0360

== ENCOUNTER → 2025-03-10 14:23 | Outpatient (CLI) | payer MEDICARE, SELFPAY ==
[2024-03-22 23:59] VITALS: BMI 25.6
--- NOTE | 2025-03-10 14:27 | DI.RAD.S_ITS ---
PROCEDURE: XR LUMBAR SPINE MIN 4V INDICATIONS: BACK PAIN TECHNIQUE: 5 views of the lumbar spine were acquired, including bilateral oblique views. COMPARISON: [facility], , XR LUMBAR SPINE MIN 4V, 08/21/2022, 13:43. FINDINGS: Bones: 5 nonrib-bearing vertebrae are present. Left transpedicular fusion hardware and intervertebral spacer again seen at L4-5 and L5-S1 levels unchanged from prior study. No evidence of hardware loosening or failure. Scoliosis of thoracolumbar spine is again seen, unchanged from prior study. No acute vertebral body compression fractures. Spondylitic changes are noted throughout lower thoracic and lumbar spine. No suspicious bony lesions. Soft tissues: Overlying bowel gas pattern is normal. No suspicious soft tissue calcifications. Oblique images: No pars defects. IMPRESSION: Stable post fusion changes in lower lumbar spine. No gross hardware loosening or failure. No acute vertebral body compression fracture. Scoliosis of lower thoracic and lumbar spine. Moderate degenerative disc disease throughout rest of the lower thoracic and lumbar spine. Dictated by: Florentino Taylor M.D. on 03/10/2025 at 15:25 Approved by: Florentino Taylor M.D. on 03/10/2025 at 15:27
== END ==
PROVIDERS: PCP Family Medicine; Referring Provider Physical Medicine & Rehabilitation; Visit Provider Physical Medicine & Rehabilitation
DX: M47.27 Other spondylosis with radiculopathy, lumbosacral region (principal); M47.26 Other spondylosis with radiculopathy, lumbar region; M48.061 Spinal stenosis, lumbar region without neurogenic claudication; M47.814 Spondylosis without myelopathy or radiculopathy, thoracic region; Z98.1 Arthrodesis status; M41.9 Scoliosis, unspecified
CPT/HCPCS: 72110

== ENCOUNTER 2025-05-29 09:07 | Emergency (ER) | payer MEDICARE, SELFPAY ==
[2024-03-22 23:59] VITALS: BMI 25.6
[2025-05-29] VITALS (37 sets, daily range): BP systolic 121–184; BP diastolic 56–82; PULSE 63–89; RESP 11–30; TEMP 36.6; O2SAT 95–100; BMI 25.9
--- NOTE | 2025-05-29 09:53 | EKG_ITS ---
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
--- NOTE | 2025-05-29 09:53 | ED.ANXIETY ---
HPI - Anxiety <Robb Castro MD - Last Filed: 06/02/25 08:14> General Chief Complaint: Anxiety Stated Complaint: HTN Time Seen by Provider: 05/29/25 09:42 History of Present Illness HPI narrative: Patient brought in by ambulance from home for high blood pressure and dizziness. Also for anxiety. Granddaughter is at bedside. She states she is doing much better now. She states patient called her because of dizziness and feeling anxious morning and her blood pressure was elevated. She does see primary Care Dr. Vanegas. No recent illness. No fever chills cough cold congestion black or bloody stools urinary complaints. No chest pain or palpitations. Granddaughter states this is typical of her anxiety. She made sure that patient took her morning medications this morning. Patient in no distress. Related Data Home Medications ?Medication ?Instructions ?Recorded ?Confirmed losartan 100 mg tablet 100 mg PO DAILY 02/05/19 04/08/25 amlodipine 10 mg tablet 10 mg PO DAILY 11/29/22 04/08/25 omeprazole 40 mg capsule,delayed 40 mg PO DAILY 11/29/22 04/08/25 release trazodone 100 mg tablet 100 mg PO BEDTIME 11/29/22 04/08/25 sertraline 50 mg tablet 50 mg PO DAILY 04/02/23 04/08/25 atorvastatin 10 mg tablet 10 mg PO DAILY 09/17/23 04/08/25 clonazepam 0.5 mg tablet 0.5 mg PO DAILY 06/04/24 04/08/25 donepezil 10 mg tablet 10 mg PO DAILY 04/08/25 04/08/25 gabapentin 100 mg capsule 100 mg PO BEDTIME PRN 04/08/25 04/08/25 nabumetone 750 mg tablet 750 mg PO DAILY 04/08/25 04/08/25 prednisone 20 mg tablet 20 mg PO DAILY 04/08/25 04/08/25 Previous Rx's ?Medication ?Instructions ?Recorded clonidine HCl 0.1 mg tablet 0.1 mg PO BID #60 tabs 03/25/24 tramadol 50 mg tablet 50 mg PO BID PRN pain #42 tabs 03/30/25 gabapentin 600 mg tablet 600 mg PO BEDTIME #90 tabs 05/20/25 cefdinir 300 mg capsule 300 mg PO BID #10 caps 05/29/25 phenazopyridine 100 mg tablet 100 mg PO TID PRN pain 6 doses #6 05/29/25 (Pyridium) tabs sulfamethoxazole 800 1 tab PO BID #14 tabs 05/31/25 mg-trimethoprim 160 mg tablet (Bactrim DS) Allergies Allergy/AdvReac Type Severity Reaction Status Date / Time hydrocodone Allergy Hives Verified 04/29/25 04:15 pregabalin (From Lyrica) Allergy Verified 04/29/25 04:15 oxycodone (From Percocet) AdvReac Hives Verified 04/29/25 04:15 Review of Systems <Robb Castro MD - Last Filed: 06/02/25 08:14> Review of Systems Narrative: GENERAL: Negative chills, fatigue, malaise, fever, sweats. HEENT: Negative sinus pain, ear pain, sore throat RESPIRATORY: Negative dyspnea, cough CARDIOVASCULAR: Negative chest pain, palpitations GASTROINTESTINAL: Negative vomiting, nausea, abdominal pain : Positive dysuria, frequency, negative hematuria MUSCULOSKELETAL: Negative muscle or bony pain SKIN: Negative rash, skin lesions NEUROLOGIC: Negative weakness, numbness positive dizziness Psychiatric: Positive anxiety ROS Unobtainable: All systems reviewed & are unremarkable except as noted in HPI and below Patient History <Robb Castro MD - Last Filed: 06/02/25 08:14> Medical History Cervical radiculopathy Degenerative joint disease, right, foot Right knee DJD Scoliosis Sensory peripheral neuropathy Surgical History History of third molar tooth extraction History of tonsillectomy Status post surgery (06/22/14) Family History Unknown No pertinent family history Father Hypertension Heart disease Mother Heart disease Social History household members: none alcohol intake: current substance use type: does not use alcohol intake frequency: holidays/special occasions only Alcohol type: wine Exam <Robb Castro MD - Last Filed: 06/02/25 08:14> Narrative Exam Narrative: GENERAL: in no distress, not toxic not dyspneic HEAD: Normocephalic. EYES: Pupils equal round ENT: Mucous membranes moist. NECK: Trachea midline. CARDIOVASCULAR: Regular rate and rhythm RESPIRATORY: Clear to auscultation. Breath sounds equal bilaterally. No wheezes, rales, or rhonchi. GASTROINTESTINAL: Abdomen soft, non-tender EXTREMITIES: No gross deformities. BACK: No flank tenderness. NEURO: AOx4. Clear speech, steady self gait to the bathroom and back. SKIN: Warm and dry PSYCH: Patient is slightly anxious, is cooperative, however not agitated not combative. Initial Vital Signs Initial Vital Signs: Vital Signs Temperature 97.8 F 05/29/25 09:07 Pulse Rate 71 05/29/25 09:07 Respiratory Rate 16 05/29/25 09:07 Blood Pressure 121/78 05/29/25 09:07 Pulse Oximetry 97 05/29/25 09:07 Oxygen Delivery Method Room Air 05/29/25 09:07 <Leatha De La Torre DO - Last Filed: 05/31/25 22:53> Initial Vital Signs Initial Vital Signs: Vital Signs Temperature 97.8 F 05/29/25 09:07 Pulse Rate 71 05/29/25 09:07 Respiratory Rate 16 05/29/25 09:07 Blood Pressure 121/78 05/29/25 09:07 Pulse Oximetry 97 05/29/25 09:07 Oxygen Delivery Method Room Air 05/29/25 09:07 Course <Robb Castro MD - Last Filed: 06/02/25 08:14> Orders Ordered: Discontinued Medications Cefdinir (Cefdinir 300 Mg Capsule) 300 mg PO NOW ONE Stop: 05/29/25 11:28 Last Admin: 05/29/25 11:42 Dose: 300 mg Documented By: JUAN Sodium Chloride (Normal Saline 0.9%) 1,000 mls @ 1,000 mls/hr IV BOLUS ONE Stop: 05/29/25 11:01 Last Infusion: 05/29/25 12:11 Dose: Infused Documented By: Admin: 05/29/25 10:30 Dose: 1,000 mls/hr Documented By: JUAN Phenazopyridine HCl (Phenazopyridine 100 Mg Tablet) 100 mg PO NOW ONE Stop: 05/29/25 12:14 Last Admin: 05/29/25 12:16 Dose: 100 mg Documented By: JUAN Vital Signs Vital signs: Vital Signs - 8 hr 05/29/25 09:07 05/29/25 09:07 05/29/25 09:08 Temperature 97.8 F Pulse Rate 71 65 Respiratory Rate 16 22 Blood Pressure 121/78 184/78 H Blood Pressure [Orthostatic Lying] Blood Pressure [Orthostatic Standing] Pulse Oximetry 97 100 Oxygen Delivery Method Room Air 05/29/25 09:10 05/29/25 09:10 05/29/25 09:20 Temperature Pulse Rate 64 Respiratory Rate 16 Blood Pressure 181/82 H 168/70 H Blood Pressure [Orthostatic Lying] Blood Pressure [Orthostatic Standing] Pulse Oximetry 100 Oxygen Delivery Method 05/29/25 09:20 05/29/25 09:30 05/29/25 09:30 Temperature Pulse Rate 63 65 Respiratory Rate 15 16 Blood Pressure 163/77 H Blood Pressure [Orthostatic Lying] Blood Pressure [Orthostatic Standing] Pulse Oximetry 98 99 Oxygen Delivery Method 05/29/25 09:40 05/29/25 09:40 05/29/25 09:57 Temperature Pulse Rate 67 72 Respiratory Rate 16 15 Blood Pressure 163/77 H Blood Pressure [Orthostatic Lying] Blood Pressure [Orthostatic Standing] Pulse Oximetry 95 98 Oxygen Delivery Method 05/29/25 09:57 05/29/25 10:00 05/29/25 10:00 Temperature Pulse Rate 79 Respiratory Rate 25 H Blood Pressure 171/79 H 154/66 H Blood Pressure [Orthostatic Lying] Blood Pressure [Orthostatic Standing] Pulse Oximetry 98 Oxygen Delivery Method 05/29/25 10:01 05/29/25 10:10 05/29/25 10:10 Temperature Pulse Rate 69 Respiratory Rate 11 L Blood Pressure 170/74 H Blood Pressure [Orthostatic Lying] 171/76 H Blood Pressure [Orthostatic Standing] 154/66 H Pulse Oximetry 99 Oxygen Delivery Method 05/29/25 10:30 05/29/25 10:30 05/29/25 10:31 Temperature Pulse Rate 76 75 Respiratory Rate 13 15 Blood Pressure 163/78 H Blood Pressure [Orthostatic Lying] Blood Pressure [Orthostatic Standing] Pulse Oximetry 100 Oxygen Delivery Method 05/29/25 10:31 05/29/25 10:40 05/29/25 10:40 Temperature Pulse Rate 73 Respiratory Rate 15 Blood Pressure 151/75 H 152/78 H Blood Pressure [Orthostatic Lying] Blood Pressure [Orthostatic Standing] Pulse Oximetry 100 Oxygen Delivery Method 05/29/25 10:50 05/29/25 10:50 05/29/25 11:00 Temperature Pulse Rate 69 Respiratory Rate 12 Blood Pressure 166/78 H 160/76 H Blood Pressure [Orthostatic Lying] Blood Pressure [Orthostatic Standing] Pulse Oximetry 100 Oxygen Delivery Method 05/29/25 11:00 05/29/25 11:17 05/29/25 11:17 Temperature Pulse Rate 69 75 Respiratory Rate 13 21 Blood Pressure 171/74 H Blood Pressure [Orthostatic Lying] Blood Pressure [Orthostatic Standing] Pulse Oximetry 100 99 Oxygen Delivery Method 05/29/25 11:20 05/29/25 11:20 05/29/25 11:30 Temperature Pulse Rate 68 Respiratory Rate 12 Blood Pressure 163/72 H 158/74 H Blood Pressure [Orthostatic Lying] Blood Pressure [Orthostatic Standing] Pulse Oximetry 99 Oxygen Delivery Method 05/29/25 11:30 05/29/25 11:40 05/29/25 11:40 Temperature Pulse Rate 68 66 Respiratory Rate 12 11 L Blood Pressure 161/74 H Blood Pressure [Orthostatic Lying] Blood Pressure [Orthostatic Standing] Pulse Oximetry 99 98 Oxygen Delivery Method 05/29/25 11:50 05/29/25 11:50 05/29/25 12:05 Temperature Pulse Rate 67 89 Respiratory Rate 18 Blood Pressure 169/78 H Blood Pressure [Orthostatic Lying] Blood Pressure [Orthostatic Standing] Pulse Oximetry 99 98 Oxygen Delivery Method 05/29/25 12:07 05/29/25 12:07 05/29/25 12:10 Temperature Pulse Rate 76 74 Respiratory Rate 15 15 Blood Pressure 157/68 H Blood Pressure [Orthostatic Lying] Blood Pressure [Orthostatic Standing] Pulse Oximetry 97 99 Oxygen Delivery Method 05/29/25 12:10 05/29/25 12:20 05/29/25 12:20 Temperature Pulse Rate 72 Respiratory Rate 14 Blood Pressure 160/69 H 151/67 H Blood Pressure [Orthostatic Lying] Blood Pressure [Orthostatic Standing] Pulse Oximetry 100 Oxygen Delivery Method 05/29/25 12:30 05/29/25 12:30 05/29/25 12:40 Temperature Pulse Rate 71 72 Respiratory Rate 14 12 Blood Pressure 156/70 H Blood Pressure [Orthostatic Lying] Blood Pressure [Orthostatic Standing] Pulse Oximetry 99 98 Oxygen Delivery Method 05/29/25 12:40 05/29/25 12:50 05/29/25 12:50 Temperature Pulse Rate 72 Respiratory Rate 15 Blood Pressure 151/69 H 159/73 H Blood Pressure [Orthostatic Lying] Blood Pressure [Orthostatic Standing] Pulse Oximetry 98 Oxygen Delivery Method <Leatha De La Torre, DO - Last Filed: 05/31/25 22:53> Orders Ordered: Discontinued Medications Cefdinir (Cefdinir 300 Mg Capsule) 300 mg PO NOW ONE Stop: 05/29/25 11:28 Last Admin: 05/29/25 11:42 Dose: 300 mg Documented By: JUAN Sodium Chloride (Normal Saline 0.9%) 1,000 mls @ 1,000 mls/hr IV BOLUS ONE Stop: 05/29/25 11:01 Last Infusion: 05/29/25 12:11 Dose: Infused Documented By: Admin: 05/29/25 10:30 Dose: 1,000 mls/hr Documented By: JUAN Phenazopyridine HCl (Phenazopyridine 100 Mg Tablet) 100 mg PO NOW ONE Stop: 05/29/25 12:14 Last Admin: 05/29/25 12:16 Dose: 100 mg Documented By: JUAN Vital Signs Vital signs: Vital Signs - 8 hr 05/29/25 09:07 05/29/25 09:07 05/29/25 09:08 Temperature 97.8 F Pulse Rate 71 65 Respiratory Rate 16 22 Blood Pressure 121/78 184/78 H Blood Pressure [Orthostatic Lying] Blood Pressure [Orthostatic Standing] Pulse Oximetry 97 100 Oxygen Delivery Method Room Air 05/29/25 09:10 05/29/25 09:10 05/29/25 09:20 Temperature Pulse Rate 64 Respiratory Rate 16 Blood Pressure 181/82 H 168/70 H Blood Pressure [Orthostatic Lying] Blood Pressure [Orthostatic Standing] Pulse Oximetry 100 Oxygen Delivery Method 05/29/25 09:20 05/29/25 09:30 05/29/25 09:30 Temperature Pulse Rate 63 65 Respiratory Rate 15 16 Blood Pressure 163/77 H Blood Pressure [Orthostatic Lying] Blood Pressure [Orthostatic Standing] Pulse Oximetry 98 99 Oxygen Delivery Method 05/29/25 09:40 05/29/25 09:40 05/29/25 09:57 Temperature Pulse Rate 67 72 Respiratory Rate 16 15 Blood Pressure 163/77 H Blood Pressure [Orthostatic Lying] Blood Pressure [Orthostatic Standing] Pulse Oximetry 95 98 Oxygen Delivery Method 05/29/25 09:57 05/29/25 10:00 05/29/25 10:00 Temperature Pulse Rate 79 Respiratory Rate 25 H Blood Pressure 171/79 H 154/66 H Blood Pressure [Orthostatic Lying] Blood Pressure [Orthostatic Standing] Pulse Oximetry 98 Oxygen Delivery Method 05/29/25 10:01 05/29/25 10:10 05/29/25 10:10 Temperature Pulse Rate 69 Respiratory Rate 11 L Blood Pressure 170/74 H Blood Pressure [Orthostatic Lying] 171/76 H Blood Pressure [Orthostatic Standing] 154/66 H Pulse Oximetry 99 Oxygen Delivery Method 05/29/25 10:30 05/29/25 10:30 05/29/25 10:31 Temperature Pulse Rate 76 75 Respiratory Rate 13 15 Blood Pressure 163/78 H Blood Pressure [Orthostatic Lying] Blood Pressure [Orthostatic Standing] Pulse Oximetry 100 Oxygen Delivery Method 05/29/25 10:31 05/29/25 10:40 05/29/25 10:40 Temperature Pulse Rate 73 Respiratory Rate 15 Blood Pressure 151/75 H 152/78 H Blood Pressure [Orthostatic Lying] Blood Pressure [Orthostatic Standing] Pulse Oximetry 100 Oxygen Delivery Method 05/29/25 10:50 05/29/25 10:50 05/29/25 11:00 Temperature Pulse Rate 69 Respiratory Rate 12 Blood Pressure 166/78 H 160/76 H Blood Pressure [Orthostatic Lying] Blood Pressure [Orthostatic Standing] Pulse Oximetry 100 Oxygen Delivery Method 05/29/25 11:00 05/29/25 11:17 05/29/25 11:17 Temperature Pulse Rate 69 75 Respiratory Rate 13 21 Blood Pressure 171/74 H Blood Pressure [Orthostatic Lying] Blood Pressure [Orthostatic Standing] Pulse Oximetry 100 99 Oxygen Delivery Method 05/29/25 11:20 05/29/25 11:20 05/29/25 11:30 Temperature Pulse Rate 68 Respiratory Rate 12 Blood Pressure 163/72 H 158/74 H Blood Pressure [Orthostatic Lying] Blood Pressure [Orthostatic Standing] Pulse Oximetry 99 Oxygen Delivery Method 05/29/25 11:30 05/29/25 11:40 05/29/25 11:40 Temperature Pulse Rate 68 66 Respiratory Rate 12 11 L Blood Pressure 161/74 H Blood Pressure [Orthostatic Lying] Blood Pressure [Orthostatic Standing] Pulse Oximetry 99 98 Oxygen Delivery Method 05/29/25 11:50 05/29/25 11:50 05/29/25 12:05 Temperature Pulse Rate 67 89 Respiratory Rate 18 Blood Pressure 169/78 H Blood Pressure [Orthostatic Lying] Blood Pressure [Orthostatic Standing] Pulse Oximetry 99 98 Oxygen Delivery Method 05/29/25 12:07 05/29/25 12:07 05/29/25 12:10 Temperature Pulse Rate 76 74 Respiratory Rate 15 15 Blood Pressure 157/68 H Blood Pressure [Orthostatic Lying] Blood Pressure [Orthostatic Standing] Pulse Oximetry 97 99 Oxygen Delivery Method 05/29/25 12:10 05/29/25 12:20 05/29/25 12:20 Temperature Pulse Rate 72 Respiratory Rate 14 Blood Pressure 160/69 H 151/67 H Blood Pressure [Orthostatic Lying] Blood Pressure [Orthostatic Standing] Pulse Oximetry 100 Oxygen Delivery Method 05/29/25 12:30 05/29/25 12:30 05/29/25 12:40 Temperature Pulse Rate 71 72 Respiratory Rate 14 12 Blood Pressure 156/70 H Blood Pressure [Orthostatic Lying] Blood Pressure [Orthostatic Standing] Pulse Oximetry 99 98 Oxygen Delivery Method 05/29/25 12:40 05/29/25 12:50 05/29/25 12:50 Temperature Pulse Rate 72 Respiratory Rate 15 Blood Pressure 151/69 H 159/73 H Blood Pressure [Orthostatic Lying] Blood Pressure [Orthostatic Standing] Pulse Oximetry 98 Oxygen Delivery Method MDM - Anxiety <Robb Castro MD - Last Filed: 06/02/25 08:14> Lab Data 05/29/25 10:09 05/29/25 10:09 Labs: Lab Results 05/29/25 05/29/25 Range/Units 09:54 10:09 WBC 7.8 (4.5-11.0) X10^3/uL RBC 4.49 (4.0-5.2) X10^6/uL Hgb 14.4 (12.0-16.0) g/dL Hct 42.3 (36-46) % MCV 94.3 (80-100) fL MCH 32.0 (26-34) PG MCHC 33.9 (30-36) % RDW 14.1 (11.6-14.8) % Plt Count 235 (150-400) X10^3/uL Neut % (Auto) 81.0 H (50-75) % Lymph % (Auto) 12.1 L (25-40) % [place] % (Auto) 5.3 (3-14) % Eos % (Auto) 1.0 L (2-4) % Baso % (Auto) 0.6 (0-2) % Neut # (Auto) 6300 (5327-9005) /uL Lymph # (Auto) 900 L (3879-1091) /uL [place] # (Auto) 400 (0-900) /uL Eos # (Auto) 100 (0-450) /uL Baso # (Auto) 0 (0-100) /uL Sodium 136 L (137-145) mmol/L Potassium 3.7 (3.4-5.1) mmol/L Chloride 104 (98-107) mmol/L Carbon Dioxide 22 (22-32) mmol/L BUN 11 (7-17) mg/dL Creatinine 0.68 (0.52-1.04) mg/dL Estimated GFR > 60 (>60) mL/min BUN/Creatinine Ratio 16.2 (6-22) Glucose 117 H (70-99) mg/dL Calcium 9.2 (8.4-10.2) mg/dL Total Bilirubin 0.6 (0.2-1.3) mg/dL AST 28 (14-36) IU/L ALT 18 (<35) IU/L Alkaline Phosphatase 88 (38-126) U/L Total Creatine Kinase 65 (30-135) U/L Troponin I < 0.012 (0.01-0.034) ng/mL Total Protein 7.6 (6.3-8.2) g/dL Albumin 4.6 (3.5-5.0) g/dL Globulin 3.0 (1.7-4.1) g/dL Albumin/Globulin Ratio 1.5 (1.0-2.8) Urine RBC 1-5/hpf (0-5/HPF) Urine WBC 1-5/hpf (0-5/HPF) Ur Squamous Epith Cells 1-5 /hpf (0-5/HPF) Urine Bacteria Many (>30) H (None) Ur Culture Indicated? Specimen cultured Vol Urine Centrifuged 10ml (spun) U Opiates 300ng/mL cut Negative (Negative) Ur Oxycodone Screen Negative (Negative) Urine Methadone Screen Negative (Negative) Ur Barbiturates Screen Negative (Negative) U Tricyclic Antidepress Negative (Negative) Ur Phencyclidine Scrn Negative (Negative) Ur Amphetamines Screen Negative (Negative) U Methamphetamines Scrn Negative (Negative) Ur MDMA Scrn (Ecstasy) Negative (Negative) U Benzodiazepines Scrn Negative (Negative) Urine Cocaine Screen Negative (Negative) U Marijuana (THC) Screen Negative (Negative) Urine pH Normal (Normal) Urine Specific [place] Normal (Normal) Ur Creatinine Normal (Normal) Urine Dip Bedside Urine Glucose Negative Bedside Urine Bilirubin - Negative Bedside Urine Ketone - Negative Urine Specific [place] 1.010 Bedside Urine Occult Blood + Bedside Urine pH 7.0 Bedside Urine Protein - Negative Bedside Urine Urobilinogen - Negative Bedside Urine Nitrite + Positive Bedside Urine Leukocytes +/- 15 Esterase MDM Narrative Medical decision making narrative: Patient brought in by ambulance from home for high blood pressure and dizziness. Also for anxiety. Granddaughter is at bedside. She states she is doing much better now. She states patient called her because of dizziness and feeling anxious morning and her blood pressure was elevated. She does see primary Care Dr. Vanegas. No recent illness. No fever chills cough cold congestion black or bloody stools urinary complaints. No chest pain or palpitations. Granddaughter states this is typical of her anxiety. She made sure that patient took her morning medications this morning. Patient in no distress. MDM After history and exam, EKG CBC CMP troponin urinalysis drug screen orthostatics Differential considered: Includes but not limited to hypertensive urgency STEMI non-STEMI anxiety dehydration Medical records reviewed: No recent visit for this complaint Lab Test results independently reviewed as above. Pertinent findings: WBC 7.8 hemoglobin 14.4 sodium 136 potassium 3.7 BUN 11 creatinine 0.68 GFR greater than 60 troponin less than 0.012 drug screen negative, urinalysis positive bacteria positive nitrite Independently reviewed EKG normal sinus rhythm rate [address]-elevation Imaging studies independently reviewed: None indicated at this time Consultations: None indicated at this time Re-evaluations: 2:20 p.m.. Patient feeling much better after IV fluids and medications. Reviewed with her diagnosis of UTI with anxiety. And slightly dehydrated with orthostatics. She desires discharge home. Return precautions reviewed. Discussion: Appropriate for discharge home. Patient feeling much better with conservative treatment. IV fluids provided. Antibiotics have been started. Return precautions reviewed. She desires discharge home. She did contact her primary care that she is here and needs follow up. Diagnosis: Acute UTI/anxiety <Leatha De La Torre, - Last Filed: 05/31/25 22:53> Lab Data Labs: Lab Results 05/29/25 05/29/25 Range/Units 09:54 10:09 WBC 7.8 (4.5-11.0) X10^3/uL RBC 4.49 (4.0-5.2) X10^6/uL Hgb 14.4 (12.0-16.0) g/dL Hct 42.3 (36-46) % MCV 94.3 (80-100) fL MCH 32.0 (26-34) PG MCHC 33.9 (30-36) % RDW 14.1 (11.6-14.8) % Plt Count 235 (150-400) X10^3/uL Neut % (Auto) 81.0 H (50-75) % Lymph % (Auto) 12.1 L (25-40) % [place] % (Auto) 5.3 (3-14) % Eos % (Auto) 1.0 L (2-4) % Baso % (Auto) 0.6 (0-2) % Neut # (Auto) 6300 (5750-1686) /uL Lymph # (Auto) 900 L (1449-1791) /uL [place] # (Auto) 400 (0-900) /uL Eos # (Auto) 100 (0-450) /uL Baso # (Auto) 0 (0-100) /uL Sodium 136 L (137-145) mmol/L Potassium 3.7 (3.4-5.1) mmol/L Chloride 104 (98-107) mmol/L Carbon Dioxide 22 (22-32) mmol/L BUN 11 (7-17) mg/dL Creatinine 0.68 (0.52-1.04) mg/dL Estimated GFR > 60 (>60) mL/min BUN/Creatinine Ratio 16.2 (6-22) Glucose 117 H (70-99) mg/dL Calcium 9.2 (8.4-10.2) mg/dL Total Bilirubin 0.6 (0.2-1.3) mg/dL AST 28 (14-36) IU/L ALT 18 (<35) IU/L Alkaline Phosphatase 88 (38-126) U/L Total Creatine Kinase 65 (30-135) U/L Troponin I < 0.012 (0.01-0.034) ng/mL Total Protein 7.6 (6.3-8.2) g/dL Albumin 4.6 (3.5-5.0) g/dL Globulin 3.0 (1.7-4.1) g/dL Albumin/Globulin Ratio 1.5 (1.0-2.8) Urine RBC 1-5/hpf (0-5/HPF) Urine WBC 1-5/hpf (0-5/HPF) Ur Squamous Epith Cells 1-5 /hpf (0-5/HPF) Urine Bacteria Many (>30) H (None) Ur Culture Indicated? Specimen cultured Vol Urine Centrifuged 10ml (spun) U Opiates 300ng/mL cut Negative (Negative) Ur Oxycodone Screen Negative (Negative) Urine Methadone Screen Negative (Negative) Ur Barbiturates Screen Negative (Negative) U Tricyclic Antidepress Negative (Negative) Ur Phencyclidine Scrn Negative (Negative) Ur Amphetamines Screen Negative (Negative) U Methamphetamines Scrn Negative (Negative) Ur MDMA Scrn (Ecstasy) Negative (Negative) U Benzodiazepines Scrn Negative (Negative) Urine Cocaine Screen Negative (Negative) U Marijuana (THC) Screen Negative (Negative) Urine pH Normal (Normal) Urine Specific [place] Normal (Normal) Ur Creatinine Normal (Normal) Urine Dip Bedside Urine Glucose Negative Bedside Urine Bilirubin - Negative Bedside Urine Ketone - Negative Urine Specific [place] 1.010 Bedside Urine Occult Blood + Bedside Urine pH 7.0 Bedside Urine Protein - Negative Bedside Urine Urobilinogen - Negative Bedside Urine Nitrite + Positive Bedside Urine Leukocytes +/- 15 Esterase MDM Narrative Medical decision making narrative: Patient brought in by ambulance from home for high blood pressure and dizziness. Also for anxiety. Granddaughter is at bedside. She states she is doing much better now. She states patient called her because of dizziness and feeling anxious morning and her blood pressure was elevated. She does see primary Care Dr. Vanegas. No recent illness. No fever chills cough cold congestion black or bloody stools urinary complaints. No chest pain or palpitations. Granddaughter states this is typical of her anxiety. She made sure that patient took her morning medications this morning. Patient in no distress. MDM After history and exam, EKG CBC CMP troponin urinalysis drug screen orthostatics Differential considered: Includes but not limited to hypertensive urgency STEMI non-STEMI anxiety dehydration Medical records reviewed: No recent visit for this complaint Lab Test results independently reviewed as above. Pertinent findings: WBC 7.8 hemoglobin 14.4 sodium 136 potassium 3.7 BUN 11 creatinine 0.68 GFR greater than 60 troponin less than 0.012 drug screen negative, urinalysis positive bacteria positive nitrite Independently reviewed EKG normal sinus rhythm rate [address]-elevation Imaging studies independently reviewed: None indicated at this time Consultations: None indicated at this time Re-evaluations: 2:20 p.m.. Patient feeling much better after IV fluids and medications. Reviewed with her diagnosis of UTI with anxiety. And slightly dehydrated with orthostatics. She desires discharge home. Return precautions reviewed. Discussion: Appropriate for discharge home. Patient feeling much better with conservative treatment. IV fluids provided. Antibiotics have been started. Return precautions reviewed. She desires discharge home. She did contact her primary care that she is here and needs follow up. Diagnosis: Acute UTI/anxiety 05/31/25 Dr. De La Torre: Patient's urine culture results and E coli greater than 100,000 CFU shows resistant to tetracycline, Augmentin, ampicillin, cefazolin, cefepime, Rocephin patient was discharged with cefdinir. We will change to Bactrim ds 1 tablet p.o. b.i.d. x7 days. #14 tablets. Patient to be contacted by nursing and prescription sent to [facility] [place]. Discharge Plan Departure Patient Disposition: Home Clinical Impression: Acute UTI, Anxiety Instructions: DI for Urinary Tract Infection (UTI) Activity Restrictions/Additional Instructions: I am glad you are feeling better. You are being treated for urinary tract infection antibiotics have been started. IV fluids have been provided for you. Please continue home medications. See family doctor next week for re-evaluation. Prescriptions: New phenazopyridine [Pyridium] 100 mg tablet 100 mg PO TID PRN (Reason: pain) Qty: 6 0RF cefdinir 300 mg capsule 300 mg PO BID Qty: 10 0RF sulfamethoxazole-trimethoprim [Bactrim DS] 800-160 mg tablet 1 tab PO BID Qty: 14 0RF No Action tramadol 50 mg tablet 50 mg PO BID PRN (Reason: pain) Qty: 42 3RF Patient Comments: doesn't take all the time gabapentin 600 mg tablet 600 mg PO BEDTIME Qty: 90 1RF clonidine HCl 0.1 mg Tablet 0.1 mg PO BID Qty: 60 3RF sertraline 50 mg tablet 50 mg PO DAILY losartan 100 mg tablet 100 mg PO DAILY omeprazole 40 mg capsule,delayed release(DR/EC) 40 mg PO DAILY Patient Comments: TAKE 1 CAPSULE BY MOUTH ONCE DAILY trazodone 100 mg tablet 100 mg PO BEDTIME amlodipine 10 mg tablet 10 mg PO DAILY Patient Comments: TAKE 1 TABLET BY MOUTH EVERY DAY atorvastatin 10 mg tablet 10 mg PO DAILY clonazepam 0.5 mg tablet 0.5 mg PO DAILY nabumetone 750 mg tablet 750 mg PO DAILY donepezil 10 mg tablet 10 mg PO DAILY prednisone 20 mg tablet 20 mg PO DAILY gabapentin 100 mg capsule 100 mg PO BEDTIME PRN Referrals: Marciano Vanegas MD [Primary Care Provider, Family Practice] Stand Alone Forms: Patient Portal/API
[2025-05-29 10:11] LABS: UR Morphine/Opiate cutoff 300 Negative (Negative); Ur Specific Gravity Normal (Normal); Urine MDMA Negative (Negative); Urine Methamphetamines Negative (Negative); Urine Tetrahydrocannabinol Negative (Negative); Urine Tricyclic Antidepressant Negative (Negative)
[2025-05-29 10:20] LABS: Add Manual Diff / Slide Review NO; Hematocrit 42.3 % (36-46); Hemoglobin 14.4 g/dL (12.0-16.0); Lymphocytes Absolute Auto 900 /uL (1100-4500); Mean Corpuscular HGB Conc 33.9 % (30-36); Mean Corpuscular Hemoglobin 32.0 PG (26-34); Mean Corpuscular Volume 94.3 fL (80-100); Platelet Count 235 X10^3/uL (150-400)
[2025-05-29 10:21] LABS: Culture Indicated Urine Specimen Cultured
[2025-05-29] MEDS: SODIUM CHLORIDE 0.9% 1,000 ML 1000 ML IV (10:30)
[2025-05-29 10:33] LABS: Alanine Aminotransferase 18 IU/L (<35); Albumin 4.6 g/dL (3.5-5.0); Albumin Globulin Ratio 1.5 (1.0-2.8); Alkaline Phosphatase 88 U/L (38-126); Blood Urea Nitrogen 11 mg/dL (7-17); Calcium 9.2 mg/dL (8.4-10.2); Carbon Dioxide 22 mmol/L (22-32); Chloride 104 mmol/L (98-107); Creatine Kinase 65 U/L (30-135); Estimated Glomerular Filt Rate > 60 mL/min (>60); Globulin 3.0 g/dL (1.7-4.1); Glucose 117 mg/dL (70-99); HEMOLYSIS < 15 (0-50); Potassium 3.7 mmol/L (3.4-5.1); Sodium 136 mmol/L (137-145); Total Protein 7.6 g/dL (6.3-8.2)
[2025-05-29 10:45] LABS: Troponin I < 0.012 ng/mL (0.01-0.034)
[2025-05-29] MEDS: CEFDINIR 300 MG CAPSULE PO (11:42)
[2025-05-29] MEDS: PHENAZOPYRIDINE 100 MG TABLET PO (12:16)
== END 2025-05-29 14:32 | disposition home or self-care (01) ==
PROVIDERS: Emergency Provider Emergency Medicine; PCP Family Medicine
DX: N39.0 Urinary tract infection, site not specified (principal); F41.9 Anxiety disorder, unspecified; R42 Dizziness and giddiness; I10 Essential (primary) hypertension
CPT/HCPCS: 36415; 80053; 80305; 81003; 81015; 82550; 84484; 85025; 87077; 87086; 87186; 93005; 93010; 96360; 96361; 99284